=== PATIENT | male | born 1960 | race Two or more races ===

== ENCOUNTER 2022-09-28 18:40 | Inpatient (IN) | payer OTHER, SELFPAY ==
--- NOTE | ~2022-09-28 | CT_ITS ---
Indication: Trauma EXAMINATION: CT brain and CT cervical spine. Axial imaging with coronal and sagittal reformatted images. This CT examination was performed using dose optimization techniques as appropriate, variously including the following: *Automated exposure control *Adjustment of mA and/or kV according to patient size (this includes techniques or standardized protocols for targeted exams where dose is matched to indication/reason for exam; i.e. extremities or head) *Use of iterative reconstruction technique. Radiation dose [address] brain; There is no midline shift. There is no mass effect. There is no hemorrhage. The basal cisterns appear patent. The posterior fossa is grossly within normal limits. There is no extra-axial collection. There is no fracture on the bone windows. CT cervical spine; There is straightening of normal lordosis. This may be due to position or spasm. There is no acute fracture or dislocation. CT/CT head/brain wo IV con IMPRESSION: Negative acute noncontrast CT of the brain. Some straightening of the normal lordosis in the cervical spine which may be due to position or spasm. No fracture or dislocation. Degenerative changes are noted
--- NOTE | ~2022-09-28 | CT_ITS ---
Indication: Trauma EXAMINATION: Contrast enhanced CT of the chest abdomen pelvis. Axial imaging with coronal and sagittal reformatted images. 85 mL Omnipaque 350. This CT examination was performed using dose optimization techniques as appropriate, variously including the following: *Automated exposure control *Adjustment of mA and/or kV according to patient size (this includes techniques or standardized protocols for targeted exams where dose is matched to indication/reason for exam; i.e. extremities or head) *Use of iterative reconstruction technique. Radiation dose 1228. Findings; CT CHEST: The thoracic inlet is within normal limits. The axillary regions are unremarkable. Centrally there is no evidence for contrast extravasation. No free fluid in the mediastinum. Imaging the lung marroquin. Right lung; There is no pneumothorax. There is no effusion. Some mild reticulonodular change at the right base may represent an area of infiltrate. 6 mm nodule on image 67 of series 10 is noted. 5 mm groundglass nodule on image 75 posterior is noted. Left lung; There is no pneumothorax. There is no effusion. Area of groundglass nodularity on image 75. Measures 9 mm. 4 mm nodule medial lung base on image 88. Upper abdomen; Liver is within normal limits. The spleen is within normal limits. Region the pancreas is unremarkable. Area the adrenal glands within normal limits. The kidneys are in the early nephrographic phase. Nonobstructing calculi are noted. The bladder is thick-walled. The bowel pattern is nonobstructing. There is no free fluid. Beginnings of a left inguinal hernia. There is no bulky adenopathy. Mild atherosclerotic changes are noted. There is no evidence of contrast extravasation. There is no free fluid. Prominent fluid-filled stomach is noted. Review of the bone windows demonstrate some mild loss of mid height at vertebral body D10. This may be chronic. Mild acute compression cannot be completely excluded. There are some probable old fractures anterior on the right ribs. Correlation would be recommended clinically. Probable old left-sided rib fractures are also noted. Again correlation recommended clinically. CT/CT abdomen pelvis w IV con IMPRESSION: No evidence for visceral injury in the abdomen pelvis. No pneumothorax or effusion in the chest. Some reticular nodular change at the right base may represent an area of infiltrate. This could be aspiration. Otherwise some small nodules are noted in the lungs. Recommend low-dose noncontrast follow-up in 6 months for continued evaluation. There is mild compression injury at T10 but the age is indeterminate. This could be chronic. Correlation recommended clinically. Probable old rib fractures are noted but again correlation would be recommended clinically. Thick-walled bladder may be hypertrophy versus cystitis. Prominent prostate is noted Prominent fluid-filled stomach.
--- NOTE | ~2022-09-28 | CT_ITS ---
Indication: Trauma EXAMINATION: CT brain and CT cervical spine. Axial imaging with coronal and sagittal reformatted images. This CT examination was performed using dose optimization techniques as appropriate, variously including the following: *Automated exposure control *Adjustment of mA and/or kV according to patient size (this includes techniques or standardized protocols for targeted exams where dose is matched to indication/reason for exam; i.e. extremities or head) *Use of iterative reconstruction technique. Radiation dose [address] brain; There is no midline shift. There is no mass effect. There is no hemorrhage. The basal cisterns appear patent. The posterior fossa is grossly within normal limits. There is no extra-axial collection. There is no fracture on the bone windows. CT cervical spine; There is straightening of normal lordosis. This may be due to position or spasm. There is no acute fracture or dislocation. CT/CT cervical spine wo IV con IMPRESSION: Negative acute noncontrast CT of the brain. Some straightening of the normal lordosis in the cervical spine which may be due to position or spasm. No fracture or dislocation. Degenerative changes are noted
--- NOTE | 2022-09-28 18:49 | ED_ITS ---
HPI - Abdominal Pain General Chief Complaint: Nausea/Vomiting/Diarrhea Stated Complaint: SEPSIS ALERT Time Seen by Provider: 09/28/22 18:49 Source: patient and EMS Mode of arrival: EMS Limitations: no limitations History of Present Illness HPI narrative: 62-year-old male presents via EMS as a sepsis alert for fevers, nausea, vomiting, and ?feeling terrible for the past 3 days?. Patient is vomiting upon arrival, is visibly anxious, and tremors. MD elicited complaint: abdominal pain Pertinent past history: other (ETOH abuse) Onset (ago): day(s) (3) Pain Consistency: constant Location: diffuse Severity: severe Pain scale (0-10): 9 Quality: aching Radiation: none Exacerbating factors: nothing Associated symptoms: nausea, vomiting, fever, chills and anorexia Related Data Allergies Allergy/AdvReac Type Severity Reaction Status Date / Time No Known Allergies Allergy Verified 09/28/22 18:50 Review of Systems Review of Systems Constitutional: Positive subjective Fever, positive Chills ENT/Mouth: No Ear Pain, No Hoarseness, No sore throat Eyes: No Eye Pain, No Swelling, No Redness, No Foreign Body Cardiovascular: Positive Chest Pain, positive SOB Respiratory: No Cough, positive Dyspnea Gastrointestinal: Positive Nausea, positive Vomiting, No Diarrhea, positive abdominal Pain Genitourinary: No Dysuria, No Hematuria Musculoskeletal: positive diffuse joint pain, No Myalgias, No Joint Swelling Skin: No Skin lacerations, No rash Neuro: Positive Weakness, No Numbness, No Paresthesias, No Loss of Consciousness, No Dizziness, positive Headache Psych: Positive Anxiety/Panic, No Depression Heme/Lymph: no easy bruising, no Lymphadenopathy Endocrine: No Polyuria, No Polydipsia Yes all other systems are reviewed and are negative [facility] Past Medical History Attestation statement: The following information was validated with the patient. Source: old records reviewed Medical History (Updated 09/28/22 @ 23:57 by Iona Morgan MD) Alcohol use disorder Marijuana abuse Mood disorder Social History Social History Advance Directives: No Physical Exam ED Vital Signs: Vital Signs - 24 hr 09/28/22 18:53 09/28/22 20:00 09/28/22 22:00 Temperature 99.1 F 98.6 F Pulse Rate 60 56 91 Respiratory Rate 19 12 29 H Blood Pressure 198/100 H 195/104 H 163/86 H Pulse Oximetry 99 99 94 Oxygen Delivery Method Room Air Room Air Room Air BMI result Body Mass Index 25.7 Appearance: Alert. Oriented X3. Moderate distress. Eyes: Pupils equal, round and reactive to light. ENT: Pharynx normal. Neck: Normal inspection. Neck supple. CVS: Normal heart rate and rhythm. Pulses normal. Respiratory: No respiratory distress. Breath sounds normal. Abdomen: Soft and diffusely tender Skin: Skin warm and dry. Normal skin color. Normal skin turgor. Extremities: No lower extremity edema. Moves all extremities against resistance. Gait not assessed for safety. Neuro: No motor deficit. No sensory deficit. Cranial nerves 2-12 intact. Course Course Course Narrative: 62-year-old male in moderate distress presents with abdominal pain, nausea, vomiting, and anxiety. States that he uses alcohol on a daily basis as well as marijuana. He reports falling 3 days ago, does not recall all the events, st ates to have headache. He also describes diffuse abdominal pain, with anxiety and tremors. Patient states to have had sweats, but did not take any medications to alleviate his symptoms, or a temperature. While patient presented via EMS as a sepsis alert I do not feel that this patient is septic at this time. 19:00 rectal temp 99.1 degrees, patient's vital signs are stable and within normal limits, with the exception of an elevated blood pressure. while patient was called in with sepsis alert, I do not feel that patient is septic at this time, I feel that this could possibly be more withdrawal symptoms. Order for Reglan, Versed, and Benadryl. Zofran was ineffective, given by EMS on transit. 19:07 CT scan head, cervical spine, chest abdomen pelvis with contrast as patient is a suspected trauma, and could possibly have subdural hematoma versus intra-abdominal bleeding. 19:48 VBG is consistent with metabolic acidosis, I do not have a source of infection yet. Will order ceftriaxone IV. White count is 16.1, will hold off on fluids at this time until chemistries. 19:56 lactic acid 8.8, 2 L normal saline. 2 L normal saline hung by this [employer]. 20:30 order for hydralazine for blood pressure control. 20:50 patient continues to be anxious, order for 1 mg of Versed. Symptoms co nsistent with withdrawal. After multiple interventions, repeat lactic is 2.2, plan of care is to admit for suspected ETOH withdrawal. Will start phenobarbital. Could possibly also be cyclic vomiting syndrome as patient does use marijuana on daily basis. Consultations Consultation #1: Eddie MDM - Abdominal Pain Differential Diagnosis Differential diagnosis: Likely abdominal pain, acute appendicitis, bowel perforation, constipation, diverticulitis, gastritis, pancreatitis and small bowel obstruction Differential diagnosis narrative:: Cyclic vomiting syndrome, subdural hematoma, ETOH withdrawal Medical Records Attestation: I reviewed the patient's medical records. Lab Data Attestation: I reviewed the patient's lab results. Result diagrams: 09/28/22 19:21 09/28/22 19:21 Labs: Lab Results 09/28/22 09/28/22 09/28/22 Range/Units 19:21 19:21 19:21 WBC 16.4 H (4.8-10.8) X10*3/uL RBC 5.61 (4.60-5.80) X10*6/uL Hgb 17.2 (14.0-18.0) g/dl Hct 49.3 (42.0-52.0) % MCV 87.9 (80.0-98.0) fL MCH 30.7 (27.0-33.0) pg MCHC 34.9 (31.0-36.0) g/dl RDW 14.2 (11.0-16.0) % Plt Count 273 (160-400) X10*3/uL MPV 9.4 (9.4-12.4) fL Immature Gran % (Auto) 0.5 H (0.0-0.4) % Neut % (Auto) 90.0 H (45-73) % Lymph % (Auto) 5.9 L (20-40) % Chambers % (Auto) 3.3 (2-11) % Eos % (Auto) 0.0 (0-4) % Baso % (Auto) 0.3 (0-2) % Lymph # (Auto) 1.0 L (1.2-4.9) X10*3/uL Chambers # (Auto) 0.5 (0.1-1.2) X10*3/uL Eos # (Auto) 0.0 (0.0-0.4) X10*3/uL Baso # (Auto) 0.1 (0.0-0.2) X10*3/uL Abs Immat Gran (auto) 0.08 H (0.00-0.03) X10*3/uL Absolute Neuts (auto) 14.8 H (2.0-8.3) x10*3/uL Absolute Nucleated RBC 0.000 (0.0-0.012) X10*3/uL Nucleated RBC % (auto) 0.0 (0.0-0.2) /100WBC PT 12.7 (10.0-13.1) SEC INR 1.1 (0.9-1.1) APTT 28.7 (26.0-36.4) SEC VBG pH (7.32-7.43) VBG pCO2 mmHg VBG pO2 mmHg VBG HCO3 (22-26) mmol/L VBG O2 Saturation % VBG Base Excess mmol/L Sodium 134 L (135-145) mmol/L Potassium 5.5 H (3.3-5.1) mmol/L Chloride 92 L (96-108) mmol/L Carbon Dioxide 18 L (22-29) mmol/L Anion Gap 30 H (12-20) BUN 15 (9-16) mg/dL Creatinine 1.05 (0.5-1.4) mg/dL Estim Creat Clear Calc 61.0 Estimated GFR > 60 Random Glucose 115 (60-115) mg/dL Lactic Acid (0.5-2.0) mmol/L Lactic Acid F/U @ 2Hr (0.5-2.0) mmol/L Calcium 9.8 (8.4-10.2) mg/dL Magnesium 1.6 (1.6-2.6) mg/dL Total Bilirubin 1.0 (0.0-1.0) mg/dL Direct Bilirubin 0.4 (0.0-0.5) mg/dL AST 19 (5-37) U/L ALT 10 (0-40) U/L Alkaline Phosphatase 63 (39-117) U/L Ammonia (13-55) umol/L Troponin I High Sens (<3.5-35.0) ng/L B-Natriuretic Peptide (<100) pg/mL Total Protein 7.7 (6.5-8.0) g/dL Albumin 4.6 (3.5-5.0) g/dL Lipase 7 L (8-78) U/L Urine Color Urine Appearance Urine pH (5.0-9.0) Ur Specific [place] (1.005-1.025) Urine Protein (Neg-Trace) mg/dL Urine Glucose (UA) (Negative) mg/dL Urine Ketones (Negative) mg/dL Urine Blood (Negative) Urine Nitrite (Negative) Ur Leukocyte Esterase (Negative) Urine RBC (0-2) /HPF Urine WBC (0-5) /HPF Ur Squamous Epith Cells (0-2) /HPF Urine Bacteria (None Seen) Hyaline Casts (0-2) /LPF Urine Opiates Screen (Not Detect) Urine Fentanyl Screen (Not Detect) Ur Barbiturates Screen (Not Detect) Ur Phencyclidine Scrn (Not Detect) Ur Amphetamines Screen (Not Detect) U Benzodiazepines Scrn (Not Detect) Urine Cocaine Screen (Not Detect) U Marijuana (THC) Screen (Not Detect) Ethyl Alcohol < 10 mg/dL Acetone, Qual (Negative) Influenza Type A (PCR) (Negative) Influenza Type B (PCR) (Negative) RSV RNA Qual (PCR) (Negative) SARS-CoV-2 RNA (RT-PCR) (Negative) Blood Type Antibody Screen 09/28/22 09/28/22 09/28/22 Range/Units 19:21 19:21 19:21 WBC (4.8-10.8) X10*3/uL RBC (4.60-5.80) X10*6/uL Hgb (14.0-18.0) g/dl Hct (42.0-52.0) % MCV (80.0-98.0) fL MCH (27.0-33.0) pg MCHC (31.0-36.0) g/dl RDW (11.0-16.0) % Plt Count (160-400) X10*3/uL MPV (9.4-12.4) fL Immature Gran % (Auto) (0.0-0.4) % Neut % (Auto) (45-73) % Lymph % (Auto) (20-40) % Chambers % (Auto) (2-11) % Eos % (Auto) (0-4) % Baso % (Auto) (0-2) % Lymph # (Auto) (1.2-4.9) X10*3/uL Chambers # (Auto) (0.1-1.2) X10*3/uL Eos # (Auto) (0.0-0.4) X10*3/uL Baso # (Auto) (0.0-0.2) X10*3/uL Abs Immat Gran (auto) (0.00-0.03) X10*3/uL Absolute Neuts (auto) (2.0-8.3) x10*3/uL Absolute Nucleated RBC (0.0-0.012) X10*3/uL Nucleated RBC % (auto) (0.0-0.2) /100WBC PT (10.0-13.1) SEC INR (0.9-1.1) APTT (26.0-36.4) SEC VBG pH (7.32-7.43) VBG pCO2 mmHg VBG pO2 mmHg VBG HCO3 (22-26) mmol/L VBG O2 Saturation % VBG Base Excess mmol/L Sodium (135-145) mmol/L Potassium (3.3-5.1) mmol/L Chloride (96-108) mmol/L Carbon Dioxide (22-29) mmol/L Anion Gap (12-20) BUN (9-16) mg/dL Creatinine (0.5-1.4) mg/dL Estim Creat Clear Calc Estimated GFR Random Glucose (60-115) mg/dL Lactic Acid 8.8 H* (0.5-2.0) mmol/L Lactic Acid F/U @ 2Hr (0.5-2.0) mmol/L Calcium (8.4-10.2) mg/dL Magnesium (1.6-2.6) mg/dL Total Bilirubin (0.0-1.0) mg/dL Direct Bilirubin (0.0-0.5) mg/dL AST (5-37) U/L ALT (0-40) U/L Alkaline Phosphatase (39-117) U/L Ammonia 28 (13-55) umol/L Troponin I High Sens < 3.5 (<3.5-35.0) ng/L B-Natriuretic Peptide 14 (<100) pg/mL Total Protein (6.5-8.0) g/dL Albumin (3.5-5.0) g/dL Lipase (8-78) U/L Urine Color Urine Appearance Urine pH (5.0-9.0) Ur Specific [place] (1.005-1.025) Urine Protein (Neg-Trace) mg/dL Urine Glucose (UA) (Negative) mg/dL Urine Ketones (Negative) mg/dL Urine Blood (Negative) Urine Nitrite (Negative) Ur Leukocyte Esterase (Negative) Urine RBC (0-2) /HPF Urine WBC (0-5) /HPF Ur Squamous Epith Cells (0-2) /HPF Urine Bacteria (None Seen) Hyaline Casts (0-2) /LPF Urine Opiates Screen (Not Detect) Urine Fentanyl Screen (Not Detect) Ur Barbiturates Screen (Not Detect) Ur Phencyclidine Scrn (Not Detect) Ur Amphetamines Screen (Not Detect) U Benzodiazepines Scrn (Not Detect) Urine Cocaine Screen (Not Detect) U Marijuana (THC) Screen (Not Detect) Ethyl Alcohol mg/dL Acetone, Qual (Negative) Influenza Type A (PCR) (Negative) Influenza Type B (PCR) (Negative) RSV RNA Qual (PCR) (Negative) SARS-CoV-2 RNA (RT-PCR) (Negative) Blood Type Antibody Screen 09/28/22 09/28/22 09/28/22 Range/Units 19:21 19:27 19:47 WBC (4.8-10.8) X10*3/uL RBC (4.60-5.80) X10*6/uL Hgb (14.0-18.0) g/dl Hct (42.0-52.0) % MCV (80.0-98.0) fL MCH (27.0-33.0) pg MCHC (31.0-36.0) g/dl RDW (11.0-16.0) % Plt Count (160-400) X10*3/uL MPV (9.4-12.4) fL Immature Gran % (Auto) (0.0-0.4) % Neut % (Auto) (45-73) % Lymph % (Auto) (20-40) % Chambers % (Auto) (2-11) % Eos % (Auto) (0-4) % Baso % (Auto) (0-2) % Lymph # (Auto) (1.2-4.9) X10*3/uL Chambers # (Auto) (0.1-1.2) X10*3/uL Eos # (Auto) (0.0-0.4) X10*3/uL Baso # (Auto) (0.0-0.2) X10*3/uL Abs Immat Gran (auto) (0.00-0.03) X10*3/uL Absolute Neuts (auto) (2.0-8.3) x10*3/uL Absolute Nucleated RBC (0.0-0.012) X10*3/uL Nucleated RBC % (auto) (0.0-0.2) /100WBC PT (10.0-13.1) SEC INR (0.9-1.1) APTT (26.0-36.4) SEC VBG pH 7.42 (7.32-7.43) VBG pCO2 27 mmHg VBG pO2 24 mmHg VBG HCO3 18 L (22-26) mmol/L VBG O2 Saturation < 30.0 % VBG Base Excess -4.4 mmol/L Sodium (135-145) mmol/L Potassium (3.3-5.1) mmol/L Chloride (96-108) mmol/L Carbon Dioxide (22-29) mmol/L Anion Gap (12-20) BUN (9-16) mg/dL Creatinine (0.5-1.4) mg/dL Estim Creat Clear Calc Estimated GFR Random Glucose (60-115) mg/dL Lactic Acid (0.5-2.0) mmol/L Lactic Acid F/U @ 2Hr (0.5-2.0) mmol/L Calcium (8.4-10.2) mg/dL Magnesium (1.6-2.6) mg/dL Total Bilirubin (0.0-1.0) mg/dL Direct Bilirubin (0.0-0.5) mg/dL AST (5-37) U/L ALT (0-40) U/L Alkaline Phosphatase (39-117) U/L Ammonia (13-55) umol/L Troponin I High Sens (<3.5-35.0) ng/L B-Natriuretic Peptide (<100) pg/mL Total Protein (6.5-8.0) g/dL Albumin (3.5-5.0) g/dL Lipase (8-78) U/L Urine Color Urine Appearance Urine pH (5.0-9.0) Ur Specific [place] (1.005-1.025) Urine Protein (Neg-Trace) mg/dL Urine Glucose (UA) (Negative) mg/dL Urine Ketones (Negative) mg/dL Urine Blood (Negative) Urine Nitrite (Negative) Ur Leukocyte Esterase (Negative) Urine RBC (0-2) /HPF Urine WBC (0-5) /HPF Ur Squamous Epith Cells (0-2) /HPF Urine Bacteria (None Seen) Hyaline Casts (0-2) /LPF Urine Opiates Screen (Not Detect) Urine Fentanyl Screen (Not Detect) Ur Barbiturates Screen (Not Detect) Ur Phencyclidine Scrn (Not Detect) Ur Amphetamines Screen (Not Detect) U Benzodiazepines Scrn (Not Detect) Urine Cocaine Screen (Not Detect) U Marijuana (THC) Screen (Not Detect) Ethyl Alcohol mg/dL Acetone, Qual Negative (Negative) Influenza Type A (PCR) NEGATIVE (Negative) Influenza Type B (PCR) NEGATIVE (Negative) RSV RNA Qual (PCR) NEGATIVE (Negative) SARS-CoV-2 RNA (RT-PCR) NEGATIVE (Negative) Blood Type Antibody Screen 09/28/22 09/28/22 09/28/22 Range/Units 19:58 21:00 21:00 WBC (4.8-10.8) X10*3/uL RBC (4.60-5.80) X10*6/uL Hgb (14.0-18.0) g/dl Hct (42.0-52.0) % MCV (80.0-98.0) fL MCH (27.0-33.0) pg MCHC (31.0-36.0) g/dl RDW (11.0-16.0) % Plt Count (160-400) X10*3/uL MPV (9.4-12.4) fL Immature Gran % (Auto) (0.0-0.4) % Neut % (Auto) (45-73) % Lymph % (Auto) (20-40) % Chambers % (Auto) (2-11) % Eos % (Auto) (0-4) % Baso % (Auto) (0-2) % Lymph # (Auto) (1.2-4.9) X10*3/uL Chambers # (Auto) (0.1-1.2) X10*3/uL Eos # (Auto) (0.0-0.4) X10*3/uL Baso # (Auto) (0.0-0.2) X10*3/uL Abs Immat Gran (auto) (0.00-0.03) X10*3/uL Absolute Neuts (auto) (2.0-8.3) x10*3/uL Absolute Nucleated RBC (0.0-0.012) X10*3/uL Nucleated RBC % (auto) (0.0-0.2) /100WBC PT (10.0-13.1) SEC INR (0.9-1.1) APTT (26.0-36.4) SEC VBG pH (7.32-7.43) VBG pCO2 mmHg VBG pO2 mmHg VBG HCO3 (22-26) mmol/L VBG O2 Saturation % VBG Base Excess mmol/L Sodium (135-145) mmol/L Potassium (3.3-5.1) mmol/L Chloride (96-108) mmol/L Carbon Dioxide (22-29) mmol/L Anion Gap (12-20) BUN (9-16) mg/dL Creatinine (0.5-1.4) mg/dL Estim Creat Clear Calc Estimated GFR Random Glucose (60-115) mg/dL Lactic Acid (0.5-2.0) mmol/L Lactic Acid F/U @ 2Hr (0.5-2.0) mmol/L Calcium (8.4-10.2) mg/dL Magnesium (1.6-2.6) mg/dL Total Bilirubin (0.0-1.0) mg/dL Direct Bilirubin (0.0-0.5) mg/dL AST (5-37) U/L ALT (0-40) U/L Alkaline Phosphatase (39-117) U/L Ammonia (13-55) umol/L Troponin I High Sens (<3.5-35.0) ng/L B-Natriuretic Peptide (<100) pg/mL Total Protein (6.5-8.0) g/dL Albumin (3.5-5.0) g/dL Lipase (8-78) U/L Urine Color Yellow Urine Appearance Clear Urine pH 5.5 (5.0-9.0) Ur Specific [place] >= 1.030 H (1.005-1.025) Urine Protein 100 (2+) H (Neg-Trace) mg/dL Urine Glucose (UA) Negative (Negative) mg/dL Urine Ketones >=160 (Negative) mg/dL Urine Blood Small (1+) H (Negative) Urine Nitrite Negative (Negative) Ur Leukocyte Esterase Negative (Negative) Urine RBC 0-2 (0-2) /HPF Urine WBC 0-5 (0-5) /HPF Ur Squamous Epith Cells 0-2 (0-2) /HPF Urine Bacteria None Seen (None Seen) Hyaline Casts 0-2 (0-2) /LPF Urine Opiates Screen Not Detected (Not Detect) Urine Fentanyl Screen Not Detected (Not Detect) Ur Barbiturates Screen Not Detected (Not Detect) Ur Phencyclidine Scrn Not Detected (Not Detect) Ur Amphetamines Screen Not Detected (Not Detect) U Benzodiazepines Scrn POSITIVE H (Not Detect) Urine Cocaine Screen Not Detected (Not Detect) U Marijuana (THC) Screen POSITIVE H (Not Detect) Ethyl Alcohol mg/dL Acetone, Qual (Negative) Influenza Type A (PCR) (Negative) Influenza Type B (PCR) (Negative) RSV RNA Qual (PCR) (Negative) SARS-CoV-2 RNA (RT-PCR) (Negative) Blood Type O Negative Antibody Screen NEGATIVE 09/28/22 Range/Units 21:41 WBC (4.8-10.8) X10*3/uL RBC (4.60-5.80) X10*6/uL Hgb (14.0-18.0) g/dl Hct (42.0-52.0) % MCV (80.0-98.0) fL MCH (27.0-33.0) pg MCHC (31.0-36.0) g/dl RDW (11.0-16.0) % Plt Count (160-400) X10*3/uL MPV (9.4-12.4) fL Immature Gran % (Auto) (0.0-0.4) % Neut % (Auto) (45-73) % Lymph % (Auto) (20-40) % Chambers % (Auto) (2-11) % Eos % (Auto) (0-4) % Baso % (Auto) (0-2) % Lymph # (Auto) (1.2-4.9) X10*3/uL Chambers # (Auto) (0.1-1.2) X10*3/uL Eos # (Auto) (0.0-0.4) X10*3/uL Baso # (Auto) (0.0-0.2) X10*3/uL Abs Immat Gran (auto) (0.00-0.03) X10*3/uL Absolute Neuts (auto) (2.0-8.3) x10*3/uL Absolute Nucleated RBC (0.0-0.012) X10*3/uL Nucleated RBC % (auto) (0.0-0.2) /100WBC PT (10.0-13.1) SEC INR (0.9-1.1) APTT (26.0-36.4) SEC VBG pH (7.32-7.43) VBG pCO2 mmHg VBG pO2 mmHg VBG HCO3 (22-26) mmol/L VBG O2 Saturation % VBG Base Excess mmol/L Sodium (135-145) mmol/L Potassium (3.3-5.1) mmol/L Chloride (96-108) mmol/L Carbon Dioxide (22-29) mmol/L Anion Gap (12-20) BUN (9-16) mg/dL Creatinine (0.5-1.4) mg/dL Estim Creat Clear Calc Estimated GFR Random Glucose (60-115) mg/dL Lactic Acid (0.5-2.0) mmol/L Lactic Acid F/U @ 2Hr 2.9 H* (0.5-2.0) mmol/L Calcium (8.4-10.2) mg/dL Magnesium (1.6-2.6) mg/dL Total Bilirubin (0.0-1.0) mg/dL Direct Bilirubin (0.0-0.5) mg/dL AST (5-37) U/L ALT (0-40) U/L Alkaline Phosphatase (39-117) U/L Ammonia (13-55) umol/L Troponin I High Sens (<3.5-35.0) ng/L B-Natriuretic Peptide (<100) pg/mL Total Protein (6.5-8.0) g/dL Albumin (3.5-5.0) g/dL Lipase (8-78) U/L Urine Color Urine Appearance Urine pH (5.0-9.0) Ur Specific [place] (1.005-1.025) Urine Protein (Neg-Trace) mg/dL Urine Glucose (UA) (Negative) mg/dL Urine Ketones (Negative) mg/dL Urine Blood (Negative) Urine Nitrite (Negative) Ur Leukocyte Esterase (Negative) Urine RBC (0-2) /HPF Urine WBC (0-5) /HPF Ur Squamous Epith Cells (0-2) /HPF Urine Bacteria (None Seen) Hyaline Casts (0-2) /LPF Urine Opiates Screen (Not Detect) Urine Fentanyl Screen (Not Detect) Ur Barbiturates Screen (Not Detect) Ur Phencyclidine Scrn (Not Detect) Ur Amphetamines Screen (Not Detect) U Benzodiazepines Scrn (Not Detect) Urine Cocaine Screen (Not Detect) U Marijuana (THC) Screen (Not Detect) Ethyl Alcohol mg/dL Acetone, Qual (Negative) Influenza Type A (PCR) (Negative) Influenza Type B (PCR) (Negative) RSV RNA Qual (PCR) (Negative) SARS-CoV-2 RNA (RT-PCR) (Negative) Blood Type Antibody Screen Imaging Data CT head, chest, cervical spine, abdomen pelvis: Attestation: I personally reviewed and interpreted this imaging study as follows: Radiologist's impression: CT brain; There is no midline shift. There is no mass effect. There is no hemorrhage. The basal cisterns appear patent. The posterior fossa is grossly within normal limits. There is no extra-axial collection. There is no fracture on the bone windows. CT cervical spine; There is straightening of normal lordosis. This may be due to position or spasm. There is no acute fracture or dislocation. CT/CT head/brain wo IV con IMPRESSION: Negative acute noncontrast CT of the brain. ? Some straightening of the normal lordosis in the cervical spine which may be due to position or spasm. No fracture or dislocation. Degenerative changes are noted CT CHEST: The thoracic inlet is within normal limits. The axillary regions are unremarkable. Centrally there is no evidence for contrast extravasation. No free fluid in the mediastinum. Imaging the lung marroquin. Right lung; There is no pneumothorax. There is no effusion. Some mild reticulonodular change at the right base may represent an area of infiltrate. 6 mm nodule on image 67 of series 10 is noted. 5 mm groundglass nodule on image 75 posterior is noted. Left lung; There is no pneumothorax. There is no effusion. Area of groundglass nodularity on image 75. Measures 9 mm. 4 mm nodule medial lung base on image 88. Upper abdomen; Liver is within normal limits. The spleen is within normal limits. Region the pancreas is unremarkable. Area the adrenal glands within normal limits. The kidneys are in the early nephrographic phase. Nonobstructing calculi are noted. The bladder is thick-walled. The bowel pattern is nonobstructing. There is no free fluid. Beginnings of a left inguinal hernia. There is no bulky adenopathy. Mild atherosclerotic changes are noted. There is no evidence of contrast extravasation. There is no free fluid. Prominent fluid-filled stomach is noted. Review of the bone windows demonstrate some mild loss of mid height at vertebral body D10. This may be chronic. Mild acute compression cannot be completely excluded. There are some probable old fractures anterior on the right ribs. Correlation would be recommended clinically. Probable old left-sided rib fractures are also noted. Again correlation recommended clinically. CT/CT abdomen pelvis w IV con IMPRESSION: No evidence for visceral injury in the abdomen pelvis. No pneumothorax or effusion in the chest. Some reticular nodular change at the right base may represent an area of infiltrate. This could be aspiration. ? Otherwise some small nodules are noted in the lungs. Recommend low-dose noncontrast follow-up in 6 months for continued evaluation. ? There is mild compression injury at T10 but the age is indeterminate. This could be chronic. Correlation recommended clinically. ? Probable old rib fractures are noted but again correlation would be recommended clinically. ? Thick-walled bladder may be hypertrophy versus cystitis. Prominent prostate is noted ? Prominent fluid-filled stomach. ECG Data Attestation: I personally reviewed and interpreted this ECG as follows: ECG interpretation date: 09/28/22 ECG interpretation time: 19:28 Prior ECG tracings: not available for review Interpretation: Vent. rate 58 BPM VT interval 164 ms QRS duration 72 ms QT/QTc 450/441 ms P-R-T axes 43 32 25 Sinus bradycardia Otherwise normal ECG No previous ECGs available Critical Care Time Critical Care Time Critical Care Time: Yes Total Critical Care Time: 65 Attestation: I have personally provided critical care time exclusive of time spent on separately billable procedures. Time includes review of laboratory data, radiology results, discussion with consultants, and monitoring for potential decompensation. Interventions were performed as documented. Discharge Plan Discharge Clinical Impression: Alcohol withdrawal, Aspiration into airway Patient Disposition: Admitted As Inpatient
--- NOTE | 2022-09-28 18:50 | ECG_ITS ---
Test Reason : HYPERTENSION Blood Pressure : / mmHG Vent. Rate : 058 BPM Atrial Rate : 058 BPM P-R Int : 164 ms QRS Dur : 072 ms QT Int : 450 ms P-R-T Axes : 043 032 025 degrees QTc Int : 441 ms Sinus bradycardia Otherwise normal ECG No previous ECGs available Referred By: Em Garcia Electronically Signed By:JAMESON BURNS MD
[2022-09-28 18:53] VITALS: BP 198/100; PULSE 60; RESP 19; TEMP 37.3; O2SAT 99; BMI 25.7
[2022-09-28] MEDS: iohexoL 350 MG/ML 100 ML INFUS..BTL IV (19:21)
[2022-09-28] MEDS: diphenhydrAMINE HCL 50 MG/ML VIAL 12.5 MG IVPUSH (19:25)
[2022-09-28 19:27] LABS: MANUAL DIFF FLAG NO
[2022-09-28] MEDS: Midazolam HCl/PF 2 MG/2 ML VIAL 1 MG IVPUSH ×2 (19:28→20:57)
[2022-09-28] MEDS: Metoclopramide HCl 10 MG/2 ML VIAL IVPUSH (19:28)
[2022-09-28 19:29] LABS: Basophils Absolute Auto 0.1 X10*3/uL (0.0-0.2); Basophils Percent Auto 0.3 % (0-2); Hematocrit 49.3 % (42.0-52.0); Hemoglobin 17.2 g/dl (14.0-18.0); Imm Gran Abs Auto 0.08 X10*3/uL (0.00-0.03); Imm Gran Pct Auto 0.5 % (0.0-0.4); Lymphocytes Percent Auto 5.9 % (20-40); Mean Corpuscular HGB Conc 34.9 g/dl (31.0-36.0); Mean Corpuscular Hemoglobin 30.7 pg (27.0-33.0); Mean Corpuscular Volume 87.9 fL (80.0-98.0); Mean Platelet Volume 9.4 fL (9.4-12.4); Monocytes Absolute Auto 0.5 X10*3/uL (0.1-1.2); Monocytes Percent Auto 3.3 % (2-11); Neutrophils Absolute Auto 14.8 x10*3/uL (2.0-8.3); Platelet Count 273 X10*3/uL (160-400); Red Blood Count 5.61 X10*6/uL (4.60-5.80); Red Cell Distribution Width 14.2 % (11.0-16.0); White Blood Count 16.4 X10*3/uL (4.8-10.8)
[2022-09-28 19:33] LABS: VBG Base Excess -4.4 mmol/L; VBG HCO3 18 mmol/L (22-26); VBG O2 % Saturation < 30.0 %; VBG pCO2 27 mmHg; VBG pH 7.42 (7.32-7.43); VBG pO2 24 mmHg
[2022-09-28 19:34] LABS: INTERNATIONAL NORM RATIO 1.1 (0.9-1.1); Prothrombin Time 12.7 SEC (10.0-13.1)
[2022-09-28 19:35] LABS: Venous Blood Gas Refer to POC result
[2022-09-28 19:37] LABS: Partial Thromboplastin Time 28.7 SEC (26.0-36.4)
[2022-09-28 19:46] LABS: Ammonia 28 umol/L (13-55)
[2022-09-28 19:50] LABS: Acetone, serum QL Negative (Negative)
[2022-09-28 19:56] LABS: Alanine Aminotransferase 10 U/L (0-40); Albumin Level 4.6 g/dL (3.5-5.0); Alkaline Phosphatase 63 U/L (39-117); Anion Gap 30 (12-20); Aspartate Amino Transferase 19 U/L (5-37); Bilirubin Direct 0.4 mg/dL (0.0-0.5); Blood Urea Nitrogen 15 mg/dL (9-16); Calcium 9.8 mg/dL (8.4-10.2); Carbon Dioxide 18 mmol/L (22-29); Chloride 92 mmol/L (96-108); Estimated Glomerular Filt Rate > 60; Ethanol < 10 mg/dL; Glucose Random 115 mg/dL (60-115); Lactic Acid 8.8 mmol/L (0.5-2.0); Lipase 7 U/L (8-78); Magnesium 1.6 mg/dL (1.6-2.6); Potassium 5.5 mmol/L (3.3-5.1); Sodium 134 mmol/L (135-145); Total Protein 7.7 g/dL (6.5-8.0)
[2022-09-28 19:59] LABS: B Type Natriuretic Peptide 14 pg/mL (<100); Troponin-I High Sensitivity < 3.5 ng/L (<3.5-35.0)
--- OUTSIDE RECORDS SUMMARY | 2022-09-28 19:59 | XMS_ITS | Continuity of Care Document ---
:1960 Author Organization [employer] Care Team Providers Name Role Phone [facility] Unavailable Unavailable Problems Combined list of problems from Department of Defense and Veterans Affairs facilities. It does not include entries that were removed or entered in error. Problem Status Onset Problem Date of Comments Source Date Type Resolution Dry skin Active Condition Jan 10, [facility] 022 2021 Entered WSTRN By: BANDAR GIVENS Comment: Treated with moisturizer Degenerative arthritis Active Condition Jan 03, [facility] 021 2020 Entered WSTRN By: BANDAR GIVENS Comment: affecting numerous joints Restless legs syndrome Active Condition April 01, [facility] 020 2019 Entered WSTRN By: BANDAR GIVENS Comment: treated with medication Schwannoma Inactive Condition 10/15/2019 Jan 05, [facility] 018 2018 Entered WSTRN By: BANDAR GIVENS Comment: benign tumor on right leg surgically removed Disorder of rotator Active Condition [facility] cuff (SNOMED CT 013 [facility] N [id number]) [place] [facility] Gout (SNOMED CT Active Condition [facility] [id number][facility] 013 [facility] [place] [facility] Hypercholesterolemia Active Condition [facility] (SNOMED CT 27196099) 013 [facility] [place] [facility] neck strain Inactive Condition NECK DoD STRAIN Adjustment disorder Active Condition Jun 202020 Entered By: TALIA VIDAL Comment: reviewed Oct 05, 2021 Entered By: TALIA VIDAL Comment: Reviewed Nov 28, 2021 Entered By: TALIA VIDAL Comment: reviewed Feb 28, 2022 Entered By: TALIA VIDAL Comment: reviewed Jun 03, 2022 Entered By: TALIA VIDAL Comment: reviewed Aug 27, 2022 Entered By: TALIA VIDAL Comment: reviewed Alcohol abuse Active Condition PROVID YULY [facility] Alcohol Abuse-Unspec Active Condition [facility] Jessica Alcohol dependence Active Condition P VALERIY [facility] Alcohol dependence Active Condition Jun 202020 Entered By: TALIA VIDAL Comment: reviewed Oct 05, 2021 Entered By: TALIA VIDAL Comment: Reviewed Nov 28, 2021 Entered By: TALIA VIDAL Comment: reviewed Feb 28, 2022 Entered By: TALIA VIDAL Comment: reviewed Jun 03, 2022 Entered By: TALIA VIDAL Comment: reviewed Aug 27, 2022 Entered By: TALIA VIDAL Comment: reviewed Chronic post-traumatic Active Condition Jun 20 [facility] CN[facility] stress disorder 2020 Entered W STRN By: TALIA BALDERAS Comment: reviewed Oct 05, 2021 Entered By: TALIA VIDAL Comment: Reviewed Nov 28, 2021 Entered By: TALIA VIDAL Comment: reviewed Feb 28, 2022 Entered By: TALIA VIDAL Comment: reviewed Jun 03, 2022 Entered By: TALIA VIDAL Comment: reviewed Aug 27, 2022 Entered By: TALIA VIDAL Comment: reviewed Chronic tension-type Active Condition ENTERPRISE headache [facility] Depressive disorder Active Condition Jun 20 [facility] CN[facility]L 2020 Entered WSTRN By: TALIA BALDERAS Comment: reviewed Oct 05, 2021 Entered By: TALIA VIDAL Comment: Reviewed Nov 28, 2021 Entered By: TALIA VIDAL Comment: reviewed Feb 28, 2022 Entered By: TALIA VIDAL Comment: reviwed Jun 03, 2022 Entered By: TALIA VIDAL Comment: reviewed Aug 27, 2022 Entered By: TALIA VIDAL Comment: reviewed Essential hypertension Active Condition [facility] CNTRL (SNOMED CT 74137676) WSTRN TREMAINE COSME gout Active Condition [facility] Gout Active Condition [facility] Health Maintenance Active Condition G EORGE E. (ICD-9-CM V65.9) [facility] SHANTANU [facility] HLD Active Condition [facility] Homeless single person Active Condition [facility] (SNOM[facility] 637792943) [facility] [place] [facility] Hyperlipidemia Active Condition PROVI DENCE [facility] Hypertension Active Condition PROVIDE NCE [facility] Insomnia (SCT Active Condition Nov 28, [facility] [id number]) 2020 Entered WSTRN By: TALIA BALDERAS Comment: sleep meds becoming less effective Feb 28, 2022 Entered By: TALIA VIDAL Comment: reviewed Jun 03, 2022 Entered By: TALIA VIDAL Comment: reviewed Aug 27, 2022 Entered By: TALIA VIDAL Comment: reviewed Lateral Epicondylitis Active Condition [facility] (Tennis Elbow) [facility] (ICD-9-CM 726.32) [facility] Mood Disorder NOS Active Condition GE ORGE E. (ICD-9-CM 296.90) [facility] Nicotine Dependence Active Condition [facility] [place] [facility] Noncompliance with Active Condition V [facility] Treatment [facility] [place] [facility] Posttraumatic stress Active Condition [facility] disorder [facility] Ptsd Active Condition [facility] C small blood on Active Condition [facility] urinalysis, 0-5 [facility] RBC/hpf [place] [facility] Thumb injury Active Condition [facility] [place] [facility] TOBACCO USE DISORDER Active Condition [facility] C Tobacco use, Active Condition PROVID[facility] NCE continuous [facility] Traumatic brain injury Active Condition [facility] with loss of [facility] consciousness [place] [facility] triple phosphate Active Condition [facility] crystals on [facility] urinalysis, moderate [place] [facility] 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 [facility] Acute alcoholic Inactive Condition 09/25/2021 [facility] intoxication in [facility] alcoholism [place] [facility] Adjustment insomnia Inactive Condition 09/25/2021 Jun 20 , [facility] (SNOMED CT [id number]) 2020 Ent ered WSTRN By: TALIA BALDERAS B Comment: reviewed Chronic unemployment Inactive Condition 09/25/2021 [facility] [place] [facility] ENCOUNTER-VOC THERAPY Inactive Condition 09/25/2021 [facility] [place] [facility] Open Treatment of Inactive Condition 12/11/2002 V A CNTR[facility] Mandibular Condylar [place] Fracture [place] [facility] Open Treatment of Inactive Condition 12/11/2002 V A [facility] Ulnar Shaft Fracture [place] [facility] Posttraumatic stress Inactive Condition 09/25/2021 Wu 2 0, [facility] disorder (SNOMED CT 2020 Enter ed WSTRN [id number]) By: TALIA BALDERAS [facility] KIRAN B Comment: reviewed Unemployment * Inactive Condition 09/25/2021 [facility] [place] [facility] Diagnosis: ICD-10-CM Active Diagnosis [facility] M25.50 Pain in W[facility]N unspecified jointwith [place] Provider Comments: H CS Joint Pain,Unspec Joint Diagnosis: ICD-10-CM Active Diagnosis [facility] F33.8 Other recurrent WSTRN depressive [place] disorderswith Provider [facility] Comments: Depressive disorder ([facility] [id number]) Diagnosis: ICD-10-CM Active Diagnosis [facility] F10.20 Alcohol WSTRN dependence, [place] uncomplicatedwith S Provider Comments: Alcohol dependence ([facility] [id number]) Diagnosis: ICD-10-CM Active Diagnosis [facility] K03.6 Deposits WSTRN [accretions] on [place] teethwith Provider H CS Comments: Deposits [accretions] on teeth Diagnosis: ICD-10-CM Active Diagnosis [facility] F10.20 Alcohol W[facility]N dependence, [place] uncomplicatedwith HC S Provider Comments: Alcohol dependence, uncomplicated (ICD-10-CM F10.20) Diagnosis: ICD-10-CM Active Diagnosis [facility] K08.411 Partial loss WSTRN of teeth due to [place] trauma, class Iwith [facility] Provider Comments: Partial loss of teeth due to trauma, class I Diagnosis: ICD-10-CM Active Diagnosis [facility] M79.671 Pain in right [facility] footwith Provider [facility] Comments: Pain in S right Foot Diagnosis: ICD-10-CM Active Diagnosis [facility] Z71.89 Other specified WSTRN counselingwith [facility] Provider Comments: H CS Counseling,Other Specified Diagnosis: ICD-10-CM Active Diagnosis [facility] Z71.89 Other specified WSTRN counselingwith [facility] Provider Comments: H CS Other specified counseling Diagnosis: ICD-10-CM Active Diagnosis NAD[facility] Z51.81 Encounter for CLINIC therapeutic drug level (631GE) monitoringwith Provider Comments: Therapeutic Drug Level Monitoring Diagnosis: ICD-10-CM Active Diagnosis [facility] K08.431 Partial loss WSTRN of teeth due to [place] caries, class Iwith [facility] Provider Comments: Partial loss of teeth due to caries, class I Diagnosis: ICD-10-CM Active Diagnosis [facility] L30.8 Other specified WSTRN dermatitiswith [facility] Provider Comments: H CS Other specified Dermatitis Diagnosis: ICD-10-CM Active Diagnosis [facility] F43.12 Post-traumatic WSTRN stress disorder, [place] chronicwith Provider [facility] Comments: Chronic post-traumatic stress disorder ([facility] [id number]) Diagnosis: ICD-10-CM Active Diagnosis [facility] Z23 Encounter for WS TRN immunizationwith ANGELA RUTHERFORD Provider Comments: H CS Encounter for Immunization Diagnosis: ICD-10-CM Active Diagnosis [facility] G47.00 Insomnia, WST RN unspecifiedwith [place] Provider Comments: H CS Insomnia ([facility] [id number]) Diagnosis: ICD-10-CM Active Diagnosis [facility] G25.81 Restless legs WSTRN syndromewith Provider [facility] Comments: Restless H CS legs syndrome ([facility] [id number]) Diagnosis: ICD-10-CM Active Diagnosis [facility] F43.12 Post-traumatic WSTRN stress disorder, [place] chronicwith Provider [facility] Comments: Post-traumatic stress disorder, chronic (ICD-10-CM F43.12) Diagnosis: ICD-10-CM Active Diagnosis [facility] M25.571 Pain in right WSTRN ankle and joints of [place] right footwith [facility] Provider Comments: Pain in right ankle and joints of right foot Diagnosis: ICD-10-CM Active Diagnosis [facility] M19.90 Unspecified W STRN osteoarthritis, [place] unspecified sitewith [facility] Provider Comments: Degenerative arthritis ([facility] [id number]) Diagnosis: ICD-10-CM Active Diagnosis [facility] H25.13 Age-related W STRN nuclear cataract, [place] bilateralwith Provider [facility] Comments: Age-Related Nuclear Cataract, Bilateral Diagnosis: ICD-10-CM Active Diagnosis [facility] F43.12 Post-traumatic WSTRN stress disorder, [place] chronicwith Provider HCS Comments: Posttraumatic stress disorder ([facility] [id number]) Diagnosis: ICD-10-CM Active Diagnosis [facility] K08.9 Disorder of [place] TRN teeth and supporting [place] structures, HCS unspecifiedwith Provider Comments: Disorder of teeth and supporting structures, unspecified Diagnosis: ICD-10-CM Active Diagnosis [facility] CNTR[facility] M25.511 Pain in right WSTRN shoulderwith Provider [place] Comments: Pain in HC S right Shoulder Medications Combined list of outpatient medications from Department of Defense and Veterans Affairs facilities. Medications provided include 1) outpatient medications from the last 15 months, and 2) patient-reported medications. Medication Details Route Status Patient Prescription Prescription Last Ordering Order Source Instructions Expires Number Dispense Provider Date Date Allopurinol TAKE ONE Active 11/04/2022 [id number] MCKINLEY 02/20/ [facility] (Alloprim) TABLET 2 2021 pton Tablet 100 BY MOUTH [facility] mg Oral ONCE DAILY FOR GOUT Allopurinol TAKE ONE Discont 09/10/2021 [id number] GETACHEW Almanza, 11/06/ [facility] (Alloprim) TABLET inued 1 2020 pton Tablet 100 BY MOUTH [facility] mg Oral ONCE DAILY FOR GOUT ALLOPURINOL TAKE ONE ORAL ACTIVE 11/04/2022 [id number] JACQUELINE JORGE 11/03/ [facility] 100MG TAB TABLET 2 JULISSA D 2020 CNTRL BY MOUTH [place] ONCE [place] DAILY SETS FOR GOUT HCS ALLOPURINOL TAKE ONE ORAL DISCONT 09/10/2021 [id number] JACQUELINE JORGE 09/13/ [facility] 100MG TAB TABLET INUE 1 JULISSA D 2019 CNTRL BY MOUTH [place] ONCE [place] DAILY SETS FOR GOUT HCS Ammonium APPLY Active 01/11/2023 [id number] MCKINLEY 04/02 2/ [facility] Lactate MODERATE 2 2021 pton (Lac-Hydrin AMOUNT [facility] ) Lotion TOPICALL 12% Topical Y AT BEDTIME NEEDED FOR DRY IRRITATE D SKIN AMMONIUM APPLY TOPICA ACTIVE 01/11/2023 [id number] JACQUELINE SEN 01/10/ [facility] LACTATE 12% MODERATE LLY 2 JULISSA D 2021 CNTRL LOTION AMOUNT [place] TOPICALL [place] Y AT SETS BEDTIME HCS NEEDED FOR DRY IRRITATE D SKIN AMOXICILLIN TAKE ONE 09/13/2021 [id number] BONT EMPI, 09/16/ [facility] 500 MG ORAL CAPSULE 1 HANNA Pham 2020 pt on CAP BY MOUTH [facility] THREE TIMES A DAY AMOXICILLIN TAKE ONE ORAL 09/13/2021 [id number] B ONTEMPI, 08/17/ [facility] TRIHYDRATE CAPSULE 1 HANNA Pham 2020 CNT RL 500MG CAP BY MOUTH WSTRN THREE [place] TIMES A SETS DAY HCS Bupivacaine TAKE TWO Active 11/29/2022 [id number] WILLI AMS, 12/09/ [facility] HCl/Dextros CAPSULES 1 JAYSHREE B 2021 pt on e Solution BY MOUTH [facility] 0.75%/8.25% AT Injection BEDTIME DIRECTED . BEWARE OF HYPOTENS ION Bupivacaine TAKE TWO Discont 10/06/2022 [id number] WILL IAMS, 12/08/ [facility] HCl/Dextros CAPSULES inued 1 JAYSHREE B 2021 pt on e Solution BY MOUTH [facility] 0.75%/8.25% AT Injection BEDTIME DIRECTED . BEWARE OF HYPOTENS ION Bupivacaine TAKE TWO 06/21/2022 [id number] WILL IAMS, 09/16/ [facility] HCl/Dextros CAPSULES 1 JAYSHREE B 2020 pt on e Solution BY MOUTH [facility] 0.75%/8.25% AT Injection BEDTIME DIRECTED . BEWARE OF HYPOTENS ION carboxymeth INSTILL Active 01/12/2023 [id number] RANDALL, 04/24/ [facility] ylcel 0.5% 1 DROP 2 CHRISTA J 2021 pton EYE DROP [2 [facility] X15ML] EACH EYE FOUR TIMES A DAY CARBOXYMETH INSTILL EACH ACTIVE 01/12/2023 [id number] RANDALL, LAC 01/11/ VA YLCELLULOSE 1 DROP EYE 2 EY J 2021 CNTRL NA 0.5% INTO WSTRN SOLN,OPH EACH EYE [place] FOUR SETS TIMES A HCS DAY CHLORHEXIDI RINSE ORAL 09/13/2021 [id number] [place]P [place], [place] 10[place] BY 1 HANNA Pham 2020 CNTRL GLUCONATE MOUTH WSTRN 0.12% TWICE [place] RINSE,ORAL DAILY SETS FOR 3 HCS WEEKS Chlorhexidi RINSE 09/13/2021 [id number] BONTEMP I, am ne 10ML BY 1 HANNA Pham 2020 pton Gluconate, MOUTH [facility] 0.12%, TWICE Mouthwash DAILY FOR 3 WEEKS EFFEXOR XR TAKE ONE Active 07/18/2023 [id number] WILLIA MS, [facility] (BRAND) 75 CAPSULE 2 JAYSHREE B 2021 pton MG ORAL BY MOUTH [facility] CP24 ONCE DAILY FOR DEPRESSI ON, PTSD EFFEXOR XR TAKE ONE Discont 05/31/2023 [id number] WILLI AMS, [facility] (BRAND) 75 CAPSULE inued 2 JAYSHREE B 2021 pton MG ORAL BY MOUTH [facility] CP24 ONCE DAILY FOR DEPRESSI ON, PTSD HYDROCODONE TAKE 1 ORAL 09/13/2021 [id number] BONTEM PI, DC 5MG/ACETAMI TABLET 1 HANNA Pham 2020 CNT RL NOPHEN BY MOUTH WSTRN 325MG TAB EVERY 6 [place] HOURS SETS NEEDED HCS FOR PAIN HYDROCODONE TAKE 1 09/13/2021 [id number] BONTEM PI, [facility] BIT/ACETAMI TABLET 1 HANNA Pham 2020 pto n NOPHEN, BY MOUTH [facility] 5MG-325MG, EVERY 6 TABLET, HOURS ORAL NEEDED FOR PAIN IBUPROFEN TAKE ONE ORAL DISCONT 01/11/2023 [id number] JACQUELINE SEN 01/10/ JEFFRY 600MG TAB TABLET INUED 2 JULISSA D 2021 CNTRL BY MOUTH WSTRN FOUR [place] TIMES SETS DAILY HCS NEEDED TAKE WITH FOOD; FOR PAIN/INF LAMMATIO N/TERRANCE NG lisinopril TAKE ONE Active 11/04/2022 [id number] MCKINLEY Prince (U/D) 20 MG TABLET 2 2021 pton ORAL TAB BY MOUTH [facility] ONCE DAILY TO CONTROL BLOOD PRESSURE lisinopril TAKE ONE Discont 09/10/2021 [id number] MCKINLEY , [facility] (U/D) 20 MG TABLET inued 1 2020 pton ORAL TAB BY MOUTH [facility] ONCE DAILY TO CONTROL BLOOD PRESSURE LISINOPRIL TAKE ONE ORAL ACTIVE 11/04/2022 [id number] MCKINLEY ,HOW 11/03/ [facility] 20MG TAB TABLET 2 JULISSA D 2020 CNTRL BY MOUTH [place] ONCE [place] DAILY TO SETS CONTROL HCS BLOOD PRESSURE LISINOPRIL TAKE ONE ORAL DISCONT 09/10/2021 [id number] MCKINLEY ,HOW 09/13/ [facility] 20MG TAB TABLET INUE 1 JULISSA D 2019 CNTRL BY MOUTH [place] ONCE [place] DAILY TO SETS CONTROL HCS BLOOD PRESSURE ONDANSETRON Active [id number] BROWN,AAR / Pharmac ODT 2 ON 2021 y Data (ondansetro Transac n), 4 MG, tion TAB RAPDIS, Service ORAL, Facilit [facility], 30 ea. BLIST PACK Oxycodone TAKE ONE Discont 04/01/2022 [id number] HOFFMA N, [facility] (Oxy IR TABLET inued 2 JULIAN D 2021 pton Eq.) Tablet BY MOUTH [facility] 5 mg Oral EVERY 4 HOURS NEEDED DIRECTED BY PROVIDER FOR MODERATE PAIN FROM FOOT/ANK LE SURGERY OXYCODONE Active [id number] Amina MURRELL 03/12 / Pharmac HCL 2 LILLY 2021 y Data (OXYCODONE Transac HCL), 10 tion MG, TABLET, Service ORAL, Facilit [facility], 100 ea. BOTTLE OXYCODONE TAKE ONE ORAL DISCONT 04/01/2022 [id number] LLOYD AlmanzaB 03/02/ VA HCL 5MG TAB TABLET INUED 2 LILLY D 2021 CNTRL BY MOUTH WSTRN EVERY 4 [place] HOURS SETS NEEDED HCS DIRECTED BY PROVIDER FOR MODERATE PAIN FROM FOOT/ANK LE SURGERY PRAMIPEXOLE TAKE ONE Active 11/29/2022 [id number] MCKINLEY Prince 0.25 MG TABLET 1 2021 pton ORAL TAB BY MOUTH [facility] AT BEDTIME DIRECTED . TAKE 2-3 HOURS BEFORE BEDTIME PRAMIPEXOLE TAKE ONE Discont 07/08/2022 [id number] KLEI N, [facility] 0.25 MG TABLET inued 1 2021 pton ORAL TAB BY MOUTH [facility] AT BEDTIME DIRECTED . TAKE 2-3 HOURS BEFORE BEDTIME PRAMIPEXOLE TAKE ONE Discont 01/04/2022 [id number] KLEI N, [facility] 0.25 MG TABLET inued 1 2020 pton ORAL TAB BY MOUTH [facility] AT BEDTIME DIRECTED . TAKE 2-3 HOURS BEFORE BEDTIME PRAMIPEXOLE TAKE ONE ORAL ACTIVE 11/29/2022 [id number] SEN ,HOW [facility] DIHYDROCHLO TABLET 2 JULISSA D 2020 CNTRL RIDE 0.25MG BY MOUTH WSTRN TAB AT [facility] BEDTIME SETS HCS DIRECTED . TAKE 2-3 HOURS BEFORE BEDTIME PRAMIPEXOLE TAKE ONE ORAL ACTIVE 01/04/2022 [id number] K LEIN,HOW 01/03/ [facility] DIHYDROCHLO TABLET 1 JULISSA D 2020 CNTRL RIDE 0.25MG BY MOUTH WSTRN TAB AT [facility] BEDTIME SETS HCS DIRECTED . TAKE 2-3 HOURS BEFORE BEDTIME PRAMIPEXOLE TAKE ONE ORAL DISCONT 07/08/2022 [id number] K LEIN,HOW 07/07/ [facility] DIHYDROCHLO TABLET INUE 1 JULISSA D 2020 CNTRL RIDE 0.25MG BY MOUTH WSTRN TAB AT [facility] BEDTIME SETS HCS DIRECTED . TAKE 2-3 HOURS BEFORE BEDTIME PRAZOSIN TAKE TWO ORAL DISCONT 11/29/2022 [id number] HANNA S, [facility] HCL 2MG CAP CAPSULES INUED 1 JAYSHREE B 2020 CN TRL BY MOUTH WSTRN AT [facility] BEDTIME SETS HCS DIRECTED . BEWARE OF HYPOTENS ION PRAZOSIN TAKE TWO ORAL DISCONT 10/06/2022 [id number] HANNA S, [facility] HCL 2MG CAP CAPSULES INUED 1 JAYSHREE B 2020 CN TRL BY MOUTH (EDIT) [place]STR[place] AT [place] BEDTIME SETS HCS DIRECTED . BEWARE OF HYPOTENS ION PRAZOSIN TAKE TWO ORAL DISCONT 06/21/2022 [id number] HANNA S, 06/20/ VA HCL 2MG CAP CAPSULES INUE 1 JAYSHREE B 2020 CN TRL BY MOUTH [place] AT [place] BEDTIME SETS HCS DIRECTED . BEWARE OF HYPOTENS ION RIVAROXABAN TAKE ONE 03/11/2022 [id number] AMADO MAN, 03/14/ [facility] 10 MG ORAL TABLET 2 JULIAN D 2021 pton TAB BY MOUTH [facility] ONCE DAILY DIRECTED BY PROVIDER WITH FOOD TO PREVENT DEEP VEIN THROMBOS IS (DVT) RIVAROXABAN TAKE ONE 03/03/2022 [id number] AMADO MAN, 02/13/ [facility] 10 MG ORAL TABLET 2 JULIAN D 2021 pton TAB BY MOUTH [facility] TWICE DAILY DIRECTED BY PROVIDER WITH FOOD TO PREVENT DEEP VEIN THROMBOS IS (DVT) RIVAROXABAN TAKE ONE ORAL DISCONT 03/03/2022 [id number] H OFFMAN,B 02/09/ [facility] 10MG TAB TABLET INUED 2 LILLY D 2021 CNTRL BY MOUTH (EDIT) WSTRN TWICE [place] DAILY SETS DIRECTED HCS BY PROVIDER WITH FOOD TO PREVENT DEEP VEIN THROMBOS IS (DVT) RIVAROXABAN TAKE ONE ORAL 03/11/2022 [id number] H OFFMAN,B 02/09/ [facility] 10MG TAB TABLET 2 LILLY D 2021 CNTRL BY MOUTH [place]STR[place] ONCE [place] DAILY SETS DIRECTED HCS BY PROVIDER WITH FOOD TO PREVENT DEEP VEIN THROMBOS IS (DVT) sildenafiL TAKE ONE Active 11/10/2022 [id number] MCKINLEY 11/16/ [facility] 50 MG ORAL TABLET 1 2020 pton TAB BY MOUTH [facility] NEEDED TAKE 1 HOUR PRIOR TO SEXUAL ACTIVITY DO NOT USE WITHIN 12 HOURS OF TAKING PRAZOSIN SILDENAFIL TAKE ONE ORAL HOLD 11/10/2022 [id number] JACQUELINE SEN 1 01/14/ VA CITRATE TABLET JULISSA D 2020 CNTRL 50MG TAB BY MOUTH [place]STR[place] NEEDED SETS TAKE 1 HCS HOUR PRIOR TO SEXUAL ACTIVITY DO NOT USE WITHIN 12 HOURS OF TAKING PRAZOSIN SODIUM APPLY DENTAL ACTIVE 05/09/2023 [id number] HOHREITER 05/08/ VA FLUORIDE DIRECTED TOPICA RICHARD Payan 2021 CNTR L 1.1% TO TEETH L WSTRN CREAM,ORAL TWICE [place] DAILY SETS HCS VENLAFAXINE TAKE ORAL DISCONT 02/22/2023 [id number] HANNA S, 02/21/ [facility] HCL 37.5MG THREE INUED 2 JAYSHREE B 2021 CNTRL 24HR CAP,SA CAPSULES (EDIT) WSTR N BY MOUTH [place] ONCE SETS DAILY HCS FOR DEPRESSI ON, PTSD VENLAFAXINE TAKE ORAL DISCONT 11/29/2022 [id number] HANNA S, 12/09/ [facility] HCL 37.5MG THREE INUED 2 JASYHREE B 2021 CNTRL 24HR CAP,SA CAPSULES WSTRN BY MOUTH [place] ONCE SETS DAILY HCS FOR DEPRESSI ON, PTSD VENLAFAXINE TAKE ORAL DISCONT 10/06/2022 [id number] HANNA S, 10/05/ [facility] HCL 37.5MG THREE INUED 1 JAYSHREE B 2020 CNTRL 24HR CAP,SA CAPSULES (EDIT) WSTR N BY MOUTH [place] ONCE SETS DAILY HCS FOR DEPRESSI ON, PTSD VENLAFAXINE TAKE 3 ORAL DISCONT 05/04/2022 [id number] WILLIA MS, 06/06/ [facility] HCL 37.5MG CAPSULES INUE 1 [facility] B 2020 CNT RL 24HR CAP,SA BY MOUTH WSTRN ONCE [place] DAILY SETS FOR HCS DEPRESSI ON, PTSD VENLAFAXINE TAKE ONE ORAL ACTIVE 07/18/2023 [id number] WILLI AMS, 07/17/ [facility] HCL 75MG CAPSULE 2 JAYSHREE B 2021 CNTRL 24HR CAP,SA BY MOUTH [place]STR[place] ONCE [place] DAILY SETS FOR HCS DEPRESSI ON, PTSD VENLAFAXINE TAKE ONE ORAL DISCONT 05/31/2023 [id number] W ILLIAMS, 05/31/ [facility] HCL 75MG CAPSULE INUED 2 JAYSHREE B 2021 CNTRL 24HR CAP,SA BY MOUTH [place]STR[place] ONCE [place] DAILY SETS FOR HCS DEPRESSI ON, PTSD venlafaxine TAKE Discont 02/22/2023 [id number] HANNA S, 06/11/ [facility] XR (U/D) THREE inued 2 [facility] 2021 pton 37.5 MG CAPSULES [facility] ORAL CP24 BY MOUTH ONCE DAILY FOR DEPRESSI ON, PTSD venlafaxine TAKE Discont 11/29/2022 [id number] HANNA S, 02/23/ [facility] XR (U/D) THREE inued 2 [facility] 2021 pton 37.5 MG CAPSULES [facility] ORAL CP24 BY MOUTH ONCE DAILY FOR DEPRESSI ON, PTSD venlafaxine TAKE Discont 10/06/2022 [id number] HANNA S, 12/08/ [facility] XR (U/D) THREE inued 1 [facility] 2021 pton 37.5 MG CAPSULES [facility] ORAL CP24 BY MOUTH ONCE DAILY FOR DEPRESSI ON, PTSD venlafaxine TAKE 05/04/2022 [id number] HANNA S, 08/31/ [facility] XR (U/D) THREE 1 JAYSHREE2020 pton 37.5 MG CAPSULES VA ORAL CP24 BY MOUTH ONCE DAILY FOR DEPRESSI ON, PTSD Zolpidem TAKE ONE Discont 04/07/2022 [id number] HANNA S, 12/08/ [facility] Tartrate TABLET inued 1 [facility] 2021 pton (Ambien BY MOUTH [facility] Eq.) Tablet AT 5mg Oral BEDTIME NEEDED FOR SLEEP Zolpidem TAKE ONE 12/06/2021 [id number] HANNA S, 09/16/ [facility] Tartrate TABLET 1 [facility] 2020 pton (Ambien BY MOUTH [facility] Eq.) Tablet AT 5mg Oral BEDTIME NEEDED FOR SLEEP Zolpidem TAKE ONE Active 11/30/2022 [id number] MARCY , 07/19/ [facility] Tartrate TABLET 2 [facility] 2021 pton (Ambien BY MOUTH [facility] Sadiq) Tablet AT 10 mg Oral BEDTIME NEEDED FOR SLEEP Zolpidem TAKE ONE Discont 08/24/2022 [id number] HANNA S, 06/12/ [facility] Tartrate TABLET inued 2 [facility] 2021 pton (Ambien BY MOUTH [facility] Sadiq) Tablet AT 10 mg Oral BEDTIME NEEDED FOR SLEEP Zolpidem TAKE ONE Discont 05/31/2022 [id number] HANNA S, 02/23/ [facility] Tartrate TABLET inued 2 [facility] B 2021 pton (Ambien BY MOUTH [facility] Sadiq) Tablet AT 10 mg Oral BEDTIME NEEDED FOR SLEEP ZOLPIDEM TAKE ONE ORAL ACTIVE 11/30/2022 [id number] MARCY , 06/07/ [facility] TARTRATE TABLET 2 JAYSHREE B 2021 CNTRL 10MG TAB BY MOUTH [place] AT [place] BEDTIME SETS HCS NEEDED FOR SLEEP ZOLPIDEM TAKE ONE ORAL DISCONT 08/24/2022 [id number] HANNA S, 03/08/ [facility] TARTRATE TABLET INUED 2 JAYSHREE B 2021 CNTRL 10MG TAB BY MOUTH [place] AT [place] BEDTIME SETS HCS NEEDED FOR SLEEP ZOLPIDEM TAKE ONE ORAL DISCONT 05/31/2022 [id number] HANNA S, 11/28/ [facility] TARTRATE TABLET INUED 2 JAYSHREE B 2020 CNTRL 10MG TAB BY MOUTH [place] AT [place] BEDTIME SETS HCS NEEDED FOR SLEEP ZOLPIDEM TAKE ONE ORAL DISCONT 04/07/2022 [id number] HANNA S, 10/12/ [facility] TABLE[facility] INUED 1 JAYSHREE B 2020 [facility] 5MG TAB BY MOUTH [facility]STR[facility] AT [place] B[facility] NEEDED FOR SLEEP ZOLPIDEM TAKE ONE ORAL DISCONT 12/06/2021 [id number] HANNA S, 07/07/ [facility] INUE 1 JAYSHREE B 2020 [facility] 5MG TAB BY MOUTH [facility]STR[facility] AT [place] B[facility] NEEDED FOR SLEEP Immunizations Combined list of available immunizations from the Department of Defense and Veterans Affairs facilities. Immunization Series Date Administered Site Reaction Lot CVX Drug St atus Comments Source Given By Number Code Hide Washer COVID-19 3 complet MOD; [facility] 2020 ed [id number]; [facility] MRNA, LNP-S, 02 WSTRN PF, 100 MCG 2 [facility] OR 50 MCG SETS DOSE [facility] COVID-19 2 complet MOD; [facility] (), 2020 ed [id number]; CNTRL MRNA, LNP-S, 02 WSTRN PF, 100 1 [place] MCG/0.5 ML SET S [facility] COVID-19 1 complet MOD; VA (), 2020 ed [id number]; CNTRL MRNA, LNP-S, 02 WSTRN PF, 100 1 [place] MCG/0.5 ML SET S [facility] HEP B, ADULT complet [facility] 2019 ed [facility] [place] [facility] INFLUENZA, complet [facility] INJECTABLE, 2019 ed CN TRL QUADRIVALENT, WSTRN PRESERVATIVE [facility] FLU,3 YRS complet P ROVIDE (HISTORICAL) 2016 ed N CE [facility] INFLUENZA, complet VA SEASONAL, 2016 ed CNTR L INJECTABLE WST RN [place] [facility] DTAP, complet Site: PROVI DE UNSPECIFIED 2016 ed Left NC E FORMULATION Deltoid [facility] TDAP complet PRO [facility] 2016 ed [facility] [place] [facility] FLU,3 YRS complet P ROVIDE (HISTORICAL) 2015 ed N CE [facility] PNEUMOCOCCAL complet VA POLYSACCHARID 2015 ed CNTRL E PPV23 [facility] [place] [facility] [facility] FLU,3 YRS complet V A (HISTORICAL) 2014 ed C N[facility]L [facility] [place] [facility] [facility] FLU,3 YRS complet Site: V A (HISTORICAL) 2014 ed Right C NTR[facility] Deltoid [facility] [place] [facility] [facility] FLU,3 YRS complet [place] PROVIDE (HISTORICAL) 2014 ed ton VA AZE [facility] PNEUMOCOCCAL complet xx PROVIDE POLYSACCHARID 2014 ed NCE E PPV23 [facility] TETANUS-DIPTH 05/25/ NONE 139 complet Garces deisi THOMAS 2008 ed Pasteu r E. (TDAP) [id number] CAT N (HISTORICAL) JAN 28 [facility] 2010 DTAP, complet [facility] V A UNSPECIFIED 2008 ed [facility] FORMULATION WS TRN [place] [facility] TETANUS-DIPHT complet poe shona BREE SOLO 1998 ed E. (HISTORICAL) Juan ASCENCIO [facility] Results Combined list of recent chemistry, hematology and other laboratory results from Department of Defense and Veterans Affairs, ranging from 15 months to all on record, depending upon the facility. Order Results Value Reference Date Interpretation Specimen Commen ts Source Name Range TESTOSTE TESTOSTERO 572.57 220.00 - 06/26 Specimen Ty pe: SERUM [facility] [place] 892.00 No comment enter ed. WSTRN TOTAL [MASS/VOLU Ordering Pro vider: BANDAR SEN ME] IN Report Released Date/Time: Jun 18, 2021 06:46 PM [facility] SERUM OR Reporting Lab: [facility] [place] [facility] PLASMA [address] [facility] [address] Performing Lab: [place] CNTRL WSTRN [place] [facility] [address] [facility] [address] PSA PROSTATE 0.64 0.00 - 06/26 Specimen Type: SERUM [facility] SPECIFIC 4. No comment ente red. WSTRN AG Ordering Provid er: BANDAR SEN [MASS/VOLU Report Relea sed Date/Time: Jun 18, 2021 06:46 PM TS HCS ME] IN Reporting Lab: [place] CN[facility]L WSTRN [place] [facility] SERUM OR [address] [facility] [address] PLASMA Performing Lab: DC CNTRL WSTRN [place] [facility] [address] [facility] [address] URIC URATE 6.5 3.5 - 7.2 06/26 Specimen Type: SERUM [place] CNTRL ACID [MASS/VOLU /2020 No comment en tered. WSTRN ME] IN Ordering Provid er: BANDAR SEN SERUM OR Report Release d Date/Time: Jun 18, 2021 06:46 PM TS [facility]CS PLASMA Reporting Lab: DC CN[facility] WSTRN [place] [facility] [address] [facility] [address] Performing Lab: DC CNTRL WSTRN [place] [facility] [address] [facility] [address] TSH THYROTROPI 0.70 0.35 - 06/26 Specimen Type : SERUM [facility] N 5.00 /2020 No comment enter ed. WSTRN [UNITS/VOL Ordering Pro vider: BANDAR SEN UME] IN Report Released Date/Time: Jun 18, 2021 06:46 PM [facility] SERUM OR Reporting Lab: [facility] [place] [facility] PLASMA [address] [facility] [address] Performing Lab: [facility]N [place] [facility] [address] [facility] [address] URINALYS COLOR OF Yellow 06/26 Specimen Type: URINE [facility] IS URINE /2020 No comment enter ed. WSTRN Ordering Provid er: BANDAR SEN Report Released Date/Time: Jun 18, 2021 06:46 PM [facility] Reporting Lab: [facility] [place] [facility] [address] [facility] [address] Performing Lab: [facility] [address] [address] URINALYS APPEARANCE Clear 06/26 Specimen Typ e: URINE [facility] IS OF URINE /2020 No comment ente red. WSTRN Ordering Provid er: BANDAR SEN Report Released Date/Time: Jun 18, 2021 06:46 PM [facility] Reporting Lab: [facility] [place] [facility] [address] [facility] [address] Performing Lab: [facility] [place] [address] [address] URINALYS GLUCOSE Negative 06/26 Specimen Type: URINE [facility] IS [MASS/VOLU /2020 No comment en tered. WSTRN ME] IN Ordering Provid er: BANDAR SEN URINE Report Released Date/Time: Jun 18, 2021 06:46 PM [facility] Reporting Lab: [facility] [place] [facility] [address] [facility] [address] Performing Lab: [facility] [place] [address] [address] URINALYS KETONES Negative 06/26 Specimen Type: URINE [facility] IS [MASS/VOLU /2020 No comment en tered. WSTRN ME] IN Ordering Provid er: BANDAR SEN [place] URINE BY Report Release d Date/Time: Jun 18, 2021 06:46 PM TS [facility] TEST STRIP Reporting La b: [facility] [place] [facility] [address] [facility] [address] Performing Lab: [facility] [place] [facility] [address] [facility] [address] URINALYS ERYTHROCYT Negative 06/26 Specimen Ty pe: URINE [facility] IS ES No comment enter ed. WSTRN [PRESENCE] Ordering Pro vider: BANDAR SEN [place] IN URINE Report Release d Date/Time: Jun 18, 2021 06:46 PM TS [facility] SEDIMENT Reporting Lab: [facility] [place] [facility] BY LIGHT [address] [facility] [address] MICROSCOPY Performing L ab: [facility] [place] [address] [address] URINALYS PROTEIN Negative 06/26 Specimen Type: URINE [facility] IS [MASS/VOLU /2020 No comment en tered. WSTRN ME] IN Ordering Provid er: BANDAR SEN [place] URINE BY Report Release d Date/Time: Jun 18, 2021 06:46 PM TS [facility] TEST STRIP Reporting La b: [facility] [place] [facility] [address] [facility] [address] Performing Lab: [facility] [place] [address] [address] URINALYS NITRITE Negative 06/26 Specimen Type: URINE [facility] IS [PRESENCE] No comment en tered. WSTRN IN URINE Ordering Provi mayra: BANDAR SEN [place] Report Released Date/Time: Jun 18, 2021 06:46 PM TS [facility]CS Reporting Lab: [facility] [place] [facility] [address] [facility] [address] Performing Lab: [facility] [place] [address] [address] URINALYS BILIRUBIN. Small 06/26 Specimen Typ e: URINE [facility] IS TOTAL No comment enter ed. WSTRN [PRESENCE] Ordering Pro vider: BANDAR SEN IN URINE Report Release d Date/Time: Jun 18, 2021 06:46 PM [facility] Reporting Lab: [facility] [place] [facility] [address] [facility] [address] Performing Lab: [facility] [place] [facility] [address] [facility] [address] URINALYS SPECIFIC 1.020 1.016 - 06/26 Specimen Type: URINE [facility] IS GRAVITY OF 1.022 No comment en tered. WSTRN URINE BY Ordering Provi mayra: BANDAR SEN REFRACTOME Report Relea sed Date/Time: Jun 18, 2021 06:46 PM [facility] TRY Reporting Lab: [facility] [place] [facility] [address] [facility] [address] Performing Lab: [facility] [place] [facility] [address] [facility] [address] URINALYS PH OF 5.0 5.0 - 9.0 06/26 Specimen Type : URINE [facility] IS URINE BY No comment ente red. WSTRN TEST STRIP Ordering Pro vider: BANDAR SEN Report Released Date/Time: Jun 18, 2021 06:46 PM [facility] Reporting Lab: [facility] [place] [facility] [address] [facility] [address] Performing Lab: [facility] [place] [facility] [address] [facility] [address] URINALYS UROBILINOG <2.0 <2.0 - 2.0 06/26 Specimen Type: URINE [facility] IS EN /2020 No comment enter ed. WSTRN [MASS/VOLU Ordering Pro vider: BANDAR SEN ME] IN Report Released Date/Time: Jun 18, 2021 06:46 PM [facility] URINE BY Reporting Lab: [facility] [place] [facility] TEST STRIP [address] [facility] [address] Performing Lab: [facility] [place] [facility] [address] [facility] [address] URINALYS LEUKOCYTE Trace 06/26 Specimen Type : URINE [facility] IS ESTERASE No comment ente red. WSTRN [PRESENCE] Ordering Pro vider: BANDAR SEN IN URINE Report Release d Date/Time: Jun 18, 2021 06:46 PM TS [facility] BY TEST Reporting Lab: [facility] [place] [facility] STRIP [address] [facility] [address] Performing Lab: [facility] [place] [facility] [address] [facility] [address] LIVER PROTEIN 7.7 6.0 - 8.3 06/26 Specimen Type: SERUM [facility] FUNCTION [MASS/VOLU /2020 No comment e ntered. WSTRN ME] IN Ordering Provid er: BANDAR SEN SERUM OR Report Release d Date/Time: Jun 18, 2021 06:46 PM [facility] PLASMA Reporting Lab: [facility] [place] [facility] [address] [facility] [address] Performing Lab: [facility] [place] [facility] [address] [facility] [address] LIVER ALBUMIN 4.3 3.5 - 5.0 06/26 Specimen Type: SERUM [facility] FUNCTION [MASS/VOLU /2020 No comment e ntered. WSTRN ME] IN Ordering Provid er: BANDAR SEN SERUM OR Report Release d Date/Time: Jun 18, 2021 06:46 PM [facility] PLASMA Reporting Lab: [facility] [place] [facility] [address] [facility] [address] Performing Lab: [facility] [place] [facility] [address] [facility] [address] LIVER ALKALINE 65 40 - 150 06/26 Specimen Type: SERUM [facility] FUNCTION PHOSPHATAS /2020 No comment e ntered. WSTRN E Ordering Provid er: BANDAR SEN [ENZYMATIC Report Relea sed Date/Time: Jun 18, 2021 06:46 PM TS [facility] ACTIVITY/V Reporting La b: [facility] [place] [facility] OLUME] IN [address] [facility] [address] SERUM OR Performing Lab : [facility] [place] [facility] PLASMA [address] [facility] [address] LIVER ASPARTATE 12 5 - 34 06/26 Specimen Type: SERUM [facility] FUNCTION AMINOTRANS /2020 No comment e ntered. WSTRN FERASE Ordering Provid er: BANDAR SEN [ENZYMATIC Report Relea sed Date/Time: Jun 18, 2021 06:46 PM TS [facility] ACTIVITY/V Reporting La b: [facility] [place] [facility] OLUME] IN [address] [facility] [address] SERUM OR Performing Lab : [facility] [place] [facility] PLASMA [address] [facility] [address] LIVER ALANINE 14 0 - 55 06/26 Specimen Type: S HERNANDEZ [facility] FUNCTION AMINOTRANS /2020 No comment e ntered. WSTRN FERASE Ordering Provid er: BANDAR SEN [ENZYMATIC Report Relea sed Date/Time: Jun 18, 2021 06:46 PM TS [facility]CS ACTIVITY/V Reporting La b: [facility] [place] [facility] OLUME] IN [address] [facility] [address] SERUM OR Performing Lab : [facility] [place] [facility] PLASMA [address] [facility] [address] LIVER BILIRUBIN. 0.4 0.2 - 1.2 06/26 Specimen Ty pe: SERUM [facility] FUNCTION TOTAL /2020 No comment ente red. WSTRN [MASS/VOLU Ordering Pro vider: BANDAR SEN ME] IN Report Released Date/Time: Jun 18, 2021 06:46 PM [facility] SERUM OR Reporting Lab: [facility] [place] [facility] PLASMA [address] [facility] [address] Performing Lab: [facility] [place] [facility] [address] [facility] [address] BASIC UREA 12 7 - 25 06/26 Specimen Type: S HERNANDEZ [facility] METABOLI NITROGEN /2020 No comment ent ered. WSTRN C PANEL [MASS/VOLU Ordering Pro vider: BANDAR SEN (fasting ME] IN Report Release d Date/Time: Jun 18, 2021 06:46 PM TS [facility] ) SERUM OR Reporting Lab: [facility] [place] [facility] PLASMA [address] [facility] [address] Performing Lab: [facility] [address] [facility] [address] BASIC GLUCOSE 103 65 - 100 06/26 H Specimen Type: SERUM [facility] METABOLI [MASS/VOLU /2020 No comment e ntered. WSTRN C PANEL ME] IN Ordering Provid er: BANDAR SEN (fasting SERUM OR Report Releas ed Date/Time: Jun 18, 2021 06:46 PM [facility] ) PLASMA Reporting Lab: [facility] [address] [facility] [address] Performing Lab: [place] CNTRL TRN [facility] [address] [facility] [address] BASIC SODIUM 138 135 - 145 06/26 Specimen Type: SERUM [facility] METABOLI [MOLE/VOL No comment e ntered. WSTRN C PANEL UME] IN Ordering Provid er: BANDAR SEN (fasting SERUM OR Report Releas ed Date/Time: Jun 18, 2021 06:46 PM [facility] ) PLASMA Reporting Lab: [facility] TRN [facility] [address] [facility] [address] Per[facility] [address] [facility] [address] BASIC POTASSIUM 4.1 3.5 - 5.0 06/26 Specimen Typ e: SERUM [facility] METABOLI [MOLES/VOL No comment e ntered. WSTRN C PANEL UME] IN Ordering Provid er: BANDAR SEN (fasting SERUM OR Report Releas ed Date/Time: Jun 18, 2021 06:46 PM [facility] ) PLASMA Reporting Lab: [facility] [address] [facility] [address] Performing Lab: [place] CN[facility]L WSTRN [facility] [address] [facility] [address] BASIC CHLORIDE 104 100 - 110 06/26 Specimen Type : SERUM [facility] METABOLI [MOLES/VOL No comment e ntered. WSTRN C PANEL UME] IN Ordering Provid er: BANDAR SEN (fasting SERUM OR Report Releas ed Date/Time: Jun 18, 2021 06:46 PM [facility] ) PLASMA Reporting Lab: [facility] [place] [facility] [address] [facility] [address] Performing Lab: [facility] [place] [facility] [address] [facility] [address] BASIC CARBON 24 20 - 30 06/26 Specimen Type: S HERNANDEZ [facility] METABOLI DIOXIDE, /2020 No comment ent ered. WSTRN C PANEL TOTAL Ordering Provid er: BANDAR SEN (fasting [MOLES/VOL Report Rele ased Date/Time: Jun 18, 2021 06:46 PM [facility] ) UME] IN Reporting Lab: [facility] [place] [facility] SERUM OR [address] [place] [address] PLASMA Performing Lab: [facility] W[facility]N [place] [facility] [address] [facility] [address] BASIC CREATININE 1.15 0.50 - 06/26 Specimen Type : SERUM [facility] METABOLI [MASS/VOLU 1.40 /2020 No comment e ntered. WSTRN C PANEL ME] IN Ordering Provid er: BANDAR SEN (fasting SERUM OR Report Releas ed Date/Time: Jun 18, 2021 06:46 PM [facility] ) PLASMA Reporting Lab: [facility] [place] [facility] [address] [facility] [address] Performing Lab: [facility] [place] [facility] [address] [facility] [address] BASIC GLOMERULAR 65 60 06/26 Specimen Type : SERUM [facility] METABOLI FILTRATION /2020 No comment e ntered. WSTRN C PANEL RATE/1.73 Ordering Prov ider: BANDAR SEN (fasting SQ Report Release d Date/Time: Jun 18, 2021 06:46 PM [facility] ) MAGED Reporting La b: [facility] [place] [facility] D [VOLUME [address] [facility] [address] RATE/AREA] Performing L ab: [facility] [place] [facility] IN SERUM [address] [place] [address] OR PLASMA BY CREATININE -BASED FORMULA (MDRD) LIPID CHOLESTERO 264 0 - 199 06/26 H Specimen Type : SERUM [facility] PANEL L /2020 No comment enter ed. WSTRN FASTING [MASS/VOLU Ordering Pro vider: BANDAR SEN ME] IN Report Released Date/Time: Jun 18, 2021 06:46 PM TS [facility] SERUM OR Reporting Lab: [facility] [place] [facility] PLASMA [address] [facility] [address] Performing Lab: [facility] [place] [facility] [address] [facility] [address] LIPID TRIGLYCERI 136 0 - 150 06/26 Specimen Type : SERUM [facility] PANEL DE /2020 No comment enter ed. WSTRN FASTING [MASS/VOLU Ordering Pro vider: BANDAR SEN ME] IN Report Released Date/Time: Jun 18, 2021 06:46 PM TS [facility] SERUM OR Reporting Lab: [facility] [place] [facility] PLASMA [address] [facility] [address] Performing Lab: [facility] [place] [facility] [address] [facility] [address] LIPID CHOLESTERO 201 0 - 129 07/ H Specimen Type : SERUM [facility] PANEL L IN LDL /2020 No comment ente red. WSTRN FASTING [MASS/VOLU Ordering Pro vider: BANDAR SEN ME] IN Report Released Date/Time: Jun 18, 2021 06:46 PM TS [facility] SERUM OR Reporting Lab: [facility] [place] [facility] PLASMA BY [address] [facility] [address] CALCULATIO Performing L ab: [facility] [place] [facility] N [address] [facility] [address] LIPID CHOLESTERO 7.3 06/26 Specimen Type : SERUM [facility] PANEL L.TOTAL/CH /2020 No comment en tered. WSTRN FASTING OLESTEROL Ordering Prov ider: BANDAR SEN IN HDL Report Released Date/Time: Jun 18, 2021 06:46 PM TS HCS [MASS Reporting Lab: [facility] [place] [facility] RATIO] IN [address] [facility] [address] SERUM OR Performing Lab : [facility] [place] [facility] PLASMA [address] [facility] [address] LIPID CHOLESTERO 36 40 - 60 06/26 L Specimen Type : SERUM [facility] PANEL L IN /2020 No comment ente red. WSTRN FASTING [MASS/VOLU Ordering Pro vider: BANDAR SEN ME] IN Report Released Date/Time: Jun 18, 2021 06:46 PM TS [facility] SERUM OR Reporting Lab: [facility] [place] [facility] PLASMA [address] [facility] [address] Performing Lab: [facility] [place] [facility] [address] [facility] [address] MICROSCO LEUKOCYTES 0-5 0 - 5 06/26 Specimen Typ e: URINE [facility] PIC [#/AREA] /2020 No comment ente red. WSTRN AUTOMATE IN URINE Ordering Prov ider: BANDAR SEN, URINE SEDIMENT Report Releas ed Date/Time: Jun 18, 2021 06:46 PM TS [facility] BY Reporting Lab: [facility] [place] [facility] MICROSCOPY [address] [facility] [address] HIGH POWER Performing L ab: [facility] [place] [facility] FIELD [address] [facility] [address] MICROSCO MUCUS FEW 06/26 Specimen Type: URINE [facility] PIC [#/AREA] /2020 No comment ente red. WSTRN AUTOMATE IN URINE Ordering Prov ider: BANDAR SEN, URINE SEDIMENT Report Releas ed Date/Time: Jun 18, 2021 06:46 PM TS [facility] BY Reporting Lab: [facility] [place] [facility] MICROSCOPY [address] [facility] [address] LOW POWER Performing La b: [facility] [place] [facility] FIELD [address] [facility] [address] MICROSCO ERYTHROCYT 0-2 0 - 3 06/26 Specimen Typ e: URINE [facility] PIC ES /2020 No comment enter ed. WSTRN AUTOMATE [#/AREA] Ordering Prov ider: BANDAR SEN, URINE IN URINE Report Releas ed Date/Time: Jun 18, 2021 06:46 PM TS [facility] SEDIMENT Reporting Lab: [facility] [place] [facility] BY [address] [facility] [address] MICROSCOPY Performing L ab: [facility] [place] [facility] HIGH POWER [address] [facility] [address] FIELD CBC AND LEUKOCYTES 6.32 4.50 - 06/26 Specimen Type : BLOOD [facility] DIFF [#/VOLUME] 11.00 No comment en tered. WSTRN (AUTO) IN BLOOD Ordering Provi mayra: BANDAR SEN BY Report Released Date/Time: Jun 18, 2021 06:46 PM TS [facility] AUTOMATED Reporting Lab : [facility] [place] [facility] COUNT [address] [facility] [address] Performing Lab: [facility] [place] [facility] [address] [facility] [address] CBC AND ERYTHROCYT 5.43 4.23 - 06/26 Specimen Type : BLOOD [facility] DIFF ES 5.66 No comment enter ed. WSTRN (AUTO) [#/VOLUME] Ordering Pro vider: BANDAR SEN IN BLOOD Report Release d Date/Time: Jun 18, 2021 06:46 PM TS [facility] BY Reporting Lab: [facility] [place] [facility] AUTOMATED [address] [facility] [address] COUNT Performing Lab: [facility] [place] [facility] [address] [facility] [address] CBC AND HEMOGLOBIN 15.9 12.8 - 17 06/26 Specimen Ty pe: BLOOD [facility] DIFF [MASS/VOLU /2020 No comment en tered. WSTRN (AUTO) ME] IN Ordering Provid er: BANDAR SEN BLOOD Report Released Date/Time: Jun 18, 2021 06:46 PM TS HCS Reporting Lab: [facility] [place] [facility] [address] [facility] [address] Performing Lab: [facility] [place] [facility] [address] [facility] [address] CBC AND HEMATOCRIT 47.5 39.2 - 06/26 Specimen Type : BLOOD [facility] DIFF [VOLUME 50.4 No comment enter ed. WSTRN (AUTO) FRACTION] Ordering Prov ider: BANDAR SEN OF BLOOD Report Release d Date/Time: Jun 18, 2021 06:46 PM TS [facility] BY Reporting Lab: [facility] [place] [facility] AUTOMATED [address] [facility] [address] COUNT Performing Lab: [facility] [place] [facility] [address] [facility] [address] CBC AND MCV 87.5 82 - 99 06/26 Specimen Type: B LOOD [facility] DIFF [ENTITIC /2020 No comment ente red. WSTRN (AUTO) VOLUME] BY Ordering Pro vider: BANDAR SEN AUTOMATED Report Releas ed Date/Time: Jun 18, 2021 06:46 PM TS [facility] COUNT Reporting Lab: [facility] [place] [facility] [address] [facility] [address] Performing Lab: [facility] [place] [facility] [address] [facility] [address] CBC AND MCHC 33.5 30.8 - 06/26 Specimen Type: B LOOD [facility] DIFF [MASS/VOLU 35.1 No comment en tered. WSTRN (AUTO) ME] BY Ordering Provid er: BANDAR SEN AUTOMATED Report Releas ed Date/Time: Jun 18, 2021 06:46 PM [facility] COUNT Reporting Lab: [facility] [place] [address] [facility] [address] Performing Lab: [facility] [place] [address] [facility] [address] CBC AND PLATELETS 251 140 - 360 06/26 Specimen Typ e: BLOOD [facility] DIFF [#/VOLUME] /2020 No comment en tered. [facility] (AUTO) IN BLOOD Ordering Provi mayra: BANDAR SEN BY Report Released Date/Time: Jun 18, 2021 06:46 PM [facility] AUTOMATED Reporting Lab : [facility] [place] [facility] COUNT [address] [facility] [address] Performing Lab: [facility] [place] [address] [facility] [address] CBC AND ERYTHROCYT 13.9 12.0 - 06/26 Specimen Type : BLOOD [facility] DIFF E 16.0 /2020 No comment enter ed. [facility] (AUTO) DISTRIBUTI Ordering Pro vider: BANDAR SEN ON WIDTH Report Release d Date/Time: Jun 18, 2021 06:46 PM TS [facility] [RATIO] BY Reporting La b: [facility] [place] [facility] AUTOMATED [address] [facility] [address] COUNT Performing Lab: [facility] [address] [facility] [address] CBC AND MONOCYTES 0.42 0.30 - 06/26 Specimen Type: BLOOD [facility] DIFF [#/VOLUME] 1.10 No comment en tered. [facility] (AUTO) IN BLOOD Ordering Provi mayra: BANDAR SEN BY Report Released Date/Time: Jun 18, 2021 06:46 PM [facility] AUTOMATED Reporting Lab : [facility] [place] [facility] COUNT [address] [facility] [address] Performing Lab: [facility] [place] [address] [facility] [address] CBC AND MCH 29.3 26.2 - 06/26 Specimen Type: B LOOD [facility] DIFF [ENTITIC 32.6 /2020 No comment ente red. [facility] (AUTO) MASS] BY Ordering Provi mayra: BANDAR SEN AUTOMATED Report Releas ed Date/Time: Jun 18, 2021 06:46 PM [facility] COUNT Reporting Lab: [facility] [place] [address] [facility] [address] Performing Lab: [facility] [place] [address] [facility] [address] CBC AND NEUTROPHIL 51.3 06/26 Specimen Type : BLOOD [facility] DIFF S/100 /2020 No comment enter ed. [facility] (AUTO) LEUKOCYTES Ordering Pro vider: BANDAR SEN IN BLOOD Report Release d Date/Time: Jun 18, 2021 06:46 PM [facility] BY Reporting Lab: [facility] [place] [facility] AUTOMATED [address] [facility] [address] COUNT Performing Lab: [facility] [place] [facility] [address] [facility] [facility] [address] CBC AND LYMPHOCYTE 34.0 06/26 Specimen Type : BLOOD [facility] DIFF S/100 No comment enter ed. W[facility]N (AUTO) LEUKOCYTES Ordering Pro vider: BANDAR SENCHSHANNAN IN BLOOD Report Release d Date/Time: Jun 18, 2021 06:46 PM TS [facility] BY Reporting Lab: [facility] [place] [facility] AUTOM[facility] [address] [facility] [address] COUNT Performing Lab: [facility] [place] [facility] [address] [facility] [address] CBC AND MONOCYTES/ 6.6 06/26 Specimen Type : BLOOD [facility] DIFF No comment enter ed. WSTRN (AUTO) LEUKOCYTES Ordering Pro vider: BANDAR SEN IN BLOOD Report Release d Date/Time: Jun 18, 2021 06:46 PM TS [facility]CS BY Reporting Lab: [facility] [place] [facility] AUTOMATED [address] [facility] [address] COUNT Performing Lab: [facility] [place] [facility] [address] [facility] [address] CBC AND EOSINOPHIL 6.5 06/26 Specimen Type : BLOOD [facility] DIFF S/ No comment enter ed. WSTRN (AUTO) LEUKOCYTES Ordering Pro vider: BANDAR SENCHSHANNAN IN BLOOD Report Release d Date/Time: Jun 18, 2021 06:46 PM TS [facility]CS BY Reporting Lab: [facility] [place] [facility] AUTOM[facility] [address] [facility] [address] COUNT Performing Lab: [facility] [place] [facility] [address] [facility] [address] CBC AND BASOPHILS/ 1.1 06/26 Specimen Type : BLOOD [facility] DIFF No comment enter ed. WSTRN (AUTO) LEUKOCYTES Ordering Pro vider: BANDAR SENCHUSE IN BLOOD Report Release d Date/Time: Jun 18, 2021 06:46 PM TS [facility]CS BY Reporting Lab: [facility] [place] [facility] AUTOMATED [address] [facility] [address] COUNT Performing Lab: [facility] [place] [facility] [address] [facility] [address] CBC AND NEUTROPHIL 3.24 2.20 - 06/26 Specimen Type : BLOOD [facility] DIFF S 7.60 /2020 No comment enter ed. WSTRN (AUTO) [#/VOLUME] Ordering Pro vider: BANDAR SEN IN BLOOD Report Release d Date/Time: Jun 18, 2021 06:46 PM TS [facility] BY Reporting Lab: [facility] [place] [facility] AUTOMATED [address] [facility] [address] COUNT Performing Lab: [facility] [place] [facility] [address] [facility] [address] CBC AND LYMPHOCYTE 2.15 1.00 - 06/26 Specimen Type : BLOOD [facility] DIFF S 3.20 No comment enter ed. WSTRN (AUTO) [#/VOLUME] Ordering Pro vider: BANDAR SEN IN BLOOD Report Release d Date/Time: Jun 18, 2021 06:46 PM TS [facility] BY Reporting Lab: [facility] [place] [facility] AUTOMATED [address] [facility] [address] COUNT Performing Lab: [facility] [place] [facility] [address] [facility] [address] CBC AND EOSINOPHIL 0.41 0.03 - 06/26 Specimen Type : BLOOD [facility] DIFF S 0.44 No comment enter ed. WSTRN (AUTO) [#/VOLUME] Ordering Pro vider: BANDAR SEN IN BLOOD Report Release d Date/Time: Jun 18, 2021 06:46 PM TS [facility]CS BY Reporting Lab: [facility] [place] [facility] AUTOMATED [address] [facility] [address] COUNT Performing Lab: [facility] [place] [facility] [address] [facility] [address] CBC AND BASOPHILS 0.07 0.01 - 06/26 Specimen Type: BLOOD [facility] DIFF [#/VOLUME] 0.13 No comment en tered. WSTRN (AUTO) IN BLOOD Ordering Provi mayra: SEN,BANDAR D [place] BY Report Released Date/Time: Jun 18, 2021 06:46 PM TS [facility]CS AUTOMATED Reporting Lab : [facility] [place] [facility] COUNT [address] [facility] [address] Performing Lab: [facility] [place] [facility] [address] [facility] [address] CBC AND IMMATURE 0.5 06/26 Specimen Type: BLOOD [facility] DIFF GRANULOCYT /2020 No comment en tered. WSTRN (AUTO) ES/100 Ordering Provid er: BANDAR SEN LEUKOCYTES Report Relea sed Date/Time: Jun 18, 2021 06:46 PM TS [facility] IN BLOOD Reporting Lab: [facility] [place] [facility] BY [address] [facility] [address] AUTOMATED Performing La b: [facility] [place] [facility] COUNT [address] [facility] [address] CBC AND IMMATURE 0.03 0.00 - 06/26 Specimen Type: BLOOD [facility] DIFF GRANULOCYT 0.06 No comment en tered. WSTRN (AUTO) ES Ordering Provid er: BANDAR SEN [#/VOLUME] Report Relea sed Date/Time: Jun 18, 2021 06:46 PM TS [facility] IN BLOOD Reporting Lab: [facility] [place] [facility] [address] [facility] [address] Performing Lab: [facility] [place] [facility] [address] [facility] [address] Vital Signs Combined list of inpatient and outpatient Vital Signs from Department of Defense and Veterans Affairs, ranging from 12 months to all on record, depending upon the facility. Vital Sign Value Date Comments Source SYSTOLIC BLOOD PRESSURE 142 01/10/2022 [facility]09[facility] [place] [facility] DIASTOLIC BLOOD PRESSURE 88 01/10/2022 [facility] [place] PULSE OXIMETRY 98% 01/10/2022 [facility]09[facility] PAIN 0 01/10/2022 [facility] TEMPERATURE 98.4 01/10/2022 [facility] PULSE 84 01/10/2022 [facility] RESPIRATION 16 01/10/2022 [facility] WEIGHT 171.2 11/28/2021 [facility] 08[facility]28[facility] BMI 29kg/m2 11/28/2021 [facility] 08[facility] WEIGHT 174.2 11/03/2021 [facility] 10[facility]27[facility] BMI 30kg/m2 11/03/2021 [facility] 10[facility]27[facility] [place] [facility] Encounters Combined list of: 1) Encounters from Department of Veterans Affairs facilities going back up to the last 18 months. 2) Encounters from the Department of Defense facilities going back up to 280 months. Location Location Encounter Encounter Reason Attending ADM DC Stat us Disposition Source Details Type Number For Provider Date Date Visit OUTPATIENT [id number] 07/12 Released w /o Theater /2004 [place] [address]-8.63 Diagnos COOK,ALLIS 04/07 [facility] 30 MINUTES [id number] is: ON CNTR L ICD-10- WSTRN CM [place] F43.12 SETS Post-tr HCS aumatic stress disorde r, chronic
wi th Provide r Comment s: Chronic post-tr aumatic stress disorde r (SCT [id number] ) [place] [address]-6.63 Diagnos JUAN JOSÉ LUCIANO 04/07 [facility] W E/M 30 [id number] is: T O CNTRL MIN ICD-10- WSTRN CM [place] F43.12 SETS Post-tr HCS aumatic stress disorde r, chronic
wi th Provide r Comment s: Chronic post-tr aumatic stress disorde r (SCT [id number] 04) ADM 55546-3.63 Diagnos RTACIE,F 04/07 [facility] SARSCOV2 [id number] is: ARR CNTRL 100MCG/0.5 ICD-10- WSTRN ML2ND CM Z23 [place] Encount SETS er for HCS immuniz ation<b r/>with Provide r Comment s: Encount er for Immuniz ation RESIN TWO 93334-2.63 Diagnos LESLEE, 04/11 [facility] SURFACES-A 1.76801867 is: CN TRL NTERIOR ICD-10- WSTRN CM [place] K08.411 SETS Partial HCS loss of teeth due to trauma, class I
w ith Provide r Comment s: Partial loss of teeth due to trauma, class I BRIDGE 28866-4.63 Kvng CAMILO, 04/11 V A REPAIR 1.94610559 is: CNTRL MATERIAL ICD-10- WSTRN FAIL CM [place] K08.411 SETS Partial HCS loss of teeth due to trauma, class I
w ith Provide r Comment s: Partial loss of teeth due to trauma, class I Outpatient 78510-8.63 04/12 [facility] En[facility] [id number] [facility] [place] 80605-4.63 04/17 [facility] Encounter [id number] [facility] [place] BRIEF 28677-7.63 Diagnos [facility], 04/18 [facility] ASSESSMENT 1.80344163 is: CN TRL ICD-10- WSTRN CM [place] K08.411 SETS Partial HCS loss of teeth due to trauma, class I
w ith Provide r Comment s: Partial loss of teeth due to trauma, class I OFFICE O/P 41422-4.63 Diagnos EDENILSON CASTAÑEDA 04/24 [facility] EST LOW 1.66688946 is: MMED JAWED /2020 CN TRL 20-29 MIN ICD-10- WSTRN CM [place] M19.90 SETS Unspeci HCS fied osteoar thritis , unspeci fied site
with Provide r Comment s: Degener ative arthrit is (SCT [id number] 06) HC PRO 56693-1.63 Diagnos STEPH WILCOX 04/27 V A PHONE CALL 1.91277431 is: [place] D CNTR L 5-10 MIN ICD-10- WSTRN CM [place] Z71.89 SETS Other HCS specifi ed associate professor of counseling ing<br/ >with Provide r Comment s: Other specifi ed associate professor of counseling ing Outpatient 63015-8.63 04/27 [facility] Encounter [id number] /2021 [facility] [place] DENTURES 73115-5.63 Diagnos LAURENER, 04/28 [facility] MAXILL 1.60039408 is: VINCENT CNTRL PART METAL ICD-10- WSTRN CM [place] K08.411 SETS Partial HCS loss of teeth due to trauma, class I
w ith Provide r Comment s: Partial loss of teeth due to [place], [place] [address]-8. Diagnos MARCY,P 05/03 [facility] W E/M 60 1.89844448 is: BRENDA B CNTR L MIN ICD-10- WSTRN CM [place] F33.8 SETS Other HCS recurre nt depress anusha disorde rs
with Provide r Comment s: Depress anusha disorde r ([facility] [id number] 7) THERAPEUTI Diagnos DANICA SHEPARD 05/16 [facility] C 1.51288169 is: LLY CNTRL EXERCISES ICD-10- WSTRN CM [place] M19.90 SETS Unspeci HCS fied osteoar thritis , unspeci fied site
with Provide r Comment s: Degener ative arthrit is (SCT [id number] 06) Outpatient 56873-7.63 05/18 [facility] Encounter [id number] /2021 [facility] [place] Outpatient 38204-9.63 05/18 [facility] Encounter [id number] /2021 [facility] [place] THERAPEUTI 78351-4.63 Diagnos VEL,M 05/24 [facility] C 1.44143446 is: JEANETTE CNTRL EXERCISES ICD-10- WSTRN CM [place] M25.571 SETS Pain in HCS right ankle and joints of right foot
with Provide r Comment s: Pain in right ankle [place] [address]-0.63 Diagnos CAMPONOGAR 05/29 [facility] 60 MINUTES 1.07280448 is: Bushra,RENE C NTRL ICD-10- WSTRN CM [place] F43.12 SETS Post-tr HCS aumatic stress disorde r, chronic
wi th Provide r Comment s: Chronic post-tr aumatic stress disorde r (SCT [id number] 04) THERAPEUTI 24385-9.63 Diagnos WILLIMAGALIEEMIL 06/06 [facility] C 1.32178792 is: LIE E CNTRL EXERCISES ICD-10- WSTRN CM [place] M25.511 SETS Pain in HCS right shoulde r
w ith Provide r Comment s: Pain in right Shoulde r THERAPEUTI 61272-9.63 Diagnos Naren CROWDER 06/06 [facility] C 1.01907137 is: JEANETTE CNTRL EXERCISES ICD-10- WSTRN CM [place] M25.571 SETS Pain in HCS right ankle and joints of right foot
with Provide r Comment s: Pain in right ankle and joints of right foot THERAPEUTI 25033-3.63 Diagnos Naren CROWDER 06/12 [facility] C 1.86707747 is: JEANETTE CNTRL EXERCISES ICD-10- WSTRN CM [place] M25.571 SETS Pain in HCS right ankle and joints of right foot
with Provide r Comment s: Pain in right ankle and joints of right foot Outpatient 22454-0.63 06/14 [facility] Encounter [id number] [facility] [place] Outpatient 44078-2.63 06/19 [facility] Encounter [id number] [facility] [place] [facility] LIMIT ORAL 54442-5.63 Diagnos ALYX MARROQUIN 06/19 [facility] EVAL 1.60328169 is: CNTRL PROBLM ICD-10- WSTRN FOCUS CM [place] K08.9 SETS Disorde HCS r of teeth and support ing structu res, unspeci fied
with Provide r Comment s: Disorde r of teeth and support ing structu [place], [place] [address]-5.63 Diagnos Francisco VIDAL 06/20 [facility] W E/M 30 1.92408607 is: BRENDA B CNTR L MIN ICD-10- WSTRN CM [place] F33.8 SETS Other HCS recurre nt depress anusha disorde rs
with Provide r Comment s: Depress anusha disorde r (SCT [id number] 7) ULTRASOUND 61763-2 Diagnos MACHMAGALIE,EMIL 06/26 [facility] THERAPY 1.00432770 is: LIE E CNTRL ICD-10- WSTRN CM [place] M25.511 SETS Pain in HCS right shoulde r
w ith Provide r Comment s: Pain in right Shoulde r Outpatient 72132-4.63 06/28 [facility] Encounter [id number] /2021 [facility] [place] Outpatient 69271-9.63 06/29 [facility] Encounter [id number] [facility] [place] CROWN 26724-363 Diagnos SEVERIANOEITER, 06/30 [facility] REPAIR 1.99445605 is: VINCENT CNTRL MATERIAL ICD-10- WSTRN FAIL CM [place] K08.9 SETS Disorde HCS r of teeth and support ing structu res, unspeci fied
with Provide r Comment s: Disorde r of teeth and support ing structu res, unspeci fied Outpatient 29943-4.63 07/07 [facility] Encounter [id number] [facility] [place] [address]-663 Diagnos CAMPONOGAR 07/13 [facility] 30 MINUTES 1.62979739 is: A,RENE C NTRL ICD-10- WSTRN CM [place] F43.12 SETS Post-tr HCS aumatic stress disorde r, chronic
wi th Provide r Comment s: Posttra umatic stress disorde r (SCT [id number] 3) Outpatient 41459-3.63 08/02 [facility] Encounter [id number] [facility] [place] Outpatient 81702-2.63 08/14 [facility] Encounter [id number] [facility] Outpatient 31330-0.63 08/14 [facility] Encounter [id number] [facility] [place] Outpatient 74836-7.63 08/14 [facility] Encounter [id number] /2021 [facility] [place] PONTIC 93815-7.63 Diagnos HOHREITER, 08/15 V A PROVISIONA 1.98833545 is: VINCENT CN TRL L ICD-10- WSTRN CM [place] K08.431 SETS Partial HCS loss of teeth due to caries, class I
w ith Provide r Comment s: Partial loss of teeth due to caries, class I Outpatient 45625-1.63 08/17 [facility] Encounter [id number] [facility] [place] Outpatient 12143-7.63 08/17 [facility] Encounter [id number] [facility] [place] Outpatient 41621-2.63 08/23 [facility] Encounter [id number] [facility] [place] Outpatient 74970-2.63 08/24 [facility] Encounter [id number] [facility] Outpatient 46927-1.63 08/24 [facility] Encounter [id number] /2021 [facility] [place] ALCOHOL/DR 86618-4.63 Diagnos LEXA COHEN 08/24 DC UG SERVICE 1.27473925 is: IFER N CNT RL 15 MIN ICD-10- WSTRN CM [place] F10.20 SETS Alcohol HCS depende nce, uncompl icated< br/>wit h Provide r Comment s: Alcohol depende nce (SCT [id number] 3) Outpatient 56580-1.63 08/31 [facility] Encounter [id number] [facility] [place] GROUP 39509-8.63 Diagnos LEXA COHEN 09/07 [facility] PSYCHOTHER 1.08243246 is: IFER N CNT RL APY ICD-10- WSTRN CM [place] F43.12 SETS Post-tr HCS aumatic stress disorde r, chronic
wi th Provide r Comment s: Chronic post-tr aumatic stress disorde r (SCT [id number] 04) Outpatient 24866-809/14 [facility] Encounter [id number] [facility] [place] Out[facility] 62118-0.63 09/15 [facility] Encounter [id number] [facility] [place] GROUP 28392-6.63 Diagnos LEXA COHEN 09/21 [facility] PSYCHOTHER 1.32547165 is: IFER N CNT RL APY ICD-10- WSTRN CM [place] F10.20 SETS Alcohol HCS depende nce, uncompl icated< br/>wit h Provide r Comment s: Alcohol depende nce, uncompl icated (ICD-10 -CM F10.20) Outpatient 79765-063 09/27 [facility] Encounter [id number] [facility] [place] 71396-1.63 Diagnos LEXA COHEN 09/28 [facility] PSYCHOTHER 1.10117134 is: IFER N CNT RL APY ICD-10- WSTRN CM [place] F43.12 SETS Post-tr HCS aumatic stress disorde r, chronic
wi th Provide r Comment s: Post-tr aumatic stress disorde r, chronic (ICD-10 -CM F43.12) [place] [address]-8 Diagnos MARCYP 10/05 [facility] W E/M 30 1.63976126 is: BRENDA B CNTR L MIN ICD-10- WSTRN CM [place] F33.8 SETS Other HCS recurre nt depress anusha disorde rs
with Provide r Comment s: Depress anusha disorde r (SCT [id number] 7) GROUP 57943-3.63 Diagnos LEXA COHEN 10/05 [facility] PSYCHOTHER 1.48700349 is: IFER N CNT RL APY ICD-10- WSTRN CM [place] F43.12 SETS Post-tr HCS aumatic stress disorde r, chronic
wi th Provide r Comment s: Post-tr aumatic stress disorde r, chronic (ICD-10 -CM F43.12) Outpatient 14567-0.63 10/10 [facility] Encounter [id number] /2021 [facility] [place] EYE 54115-4.63 Diagnos NAGA RANDALL 10/17 [facility] EXAM&TX 1.90092426 is: Y J CNTRL ESTAB PT ICD-10- WSTRN 1/>VST CM [place] H25.13 SETS Age-rel HCS ated nuclear catarac t, bilater al
with Provide r Comment s: Age-Rel ated Nuclear Catarac t, Bilater al GROUP 51778-8.63 Diagnos LEXA COHEN 10/19 [facility] PSYCHOTHER 1.74759705 is: IFER N CNT RL APY ICD-10- WSTRN CM [place] F10.20 SETS Alcohol HCS depende nce, uncompl icated< br/>wit h Provide r Comment s: Alcohol depende nce, uncompl icated (ICD-10 -CM F10.20) HC PRO 16334-9.63 Diagnos ARIC, 10/23 V A PHONE CALL 1.81352038 is: CN TRL 5-10 MIN ICD-10- WSTRN CM [place] Z71.89 SETS Other HCS specifi ed associate professor of counseling ing<br/ >with Provide r Comment s: Other specifi ed associate professor of counseling ing Outpatient 98226-8.63 10/23 [facility] Encounter [id number] [facility] [place] [facility] Outpatient 18611-9.63 10/31 [facility] Encounter [id number] /2021 [facility] [place] 15170-4.63 Diagnos LEXA COHEN 11/02 [facility] PSYCHOTHER 1.40099080 is: IFER N CNT RL APY ICD-10- WSTRN CM [place] F43.12 SETS Post-tr HCS aumatic stress disorde r, chronic
wi th Provide r Comment s: Post-tr aumatic stress disorde r, chronic (ICD-10 -CM F43.12) Outpatient 05958-4.63 11/03 [facility] Encounter [id number] [facility] [place] [facility] OFFICE O/P 46810-8.63 Diagnos JOANA SEN 11/03 [facility] EST SF 1.54514386 is: RD D /2020 CNTRL 10-19 MIN ICD-10- WSTRN CM [place] M19.90 SETS Unspeci HCS fied osteoar thritis , unspeci fied site
with Provide r Comment s: Mario roman arthriej is ([facility] [id number] 06) PROSTHETIC 93059-3.63 Diagnos Naren CROWDER 11/03 [facility] TRAING 1ST 1.03784192 is: JEANETTE /2020 CNTR L ENC ICD-10- WSTRN CM [place] M25.571 SETS Pain in HCS right ankle and joints of right foot
with Provide r Comment s: Pain in right ankle and joints of right foot Outpatient 77503-6.63 11/08 [facility] Encounter [id number] /2021 [facility] [place] [facility] Outpatient 71999-9.63 11/09 [facility] Encounter [id number] [facility] [place] 49484-3.63 Diagnos LEXA COHEN 11/09 [facility] PSYCHOTHER 1.74975956 is: IFER N /2020 CNT RL APY ICD-10- WSTRN CM [place] F43.12 SETS Post-tr HCS aumatic stress disorde r, chronic
wi th Provide r Comment s: Post-tr aumatic stress disorde r, chronic (ICD-10 -CM F43.12) Outpatient 89113-4.63 11/09 [facility] Encounter [id number] /2021 [facility] [place] Outpatient 37289-0.63 11/13 [facility] Encounter [id number] [facility] [place] [facility] Outpatient 61096-5.63 11/16 [facility] Encounter [id number] [facility] [place] [facility] OFFICE O/P 90642-6.63 Diagnos JOANA SEN 11/28 [facility] EST SF 1.96130228 is: RD D CNTRL 10-19 MIN ICD-10- WSTRN CM [place] G25.81 SETS Restles HCS s legs syndrom e
w ith Provide r Comment s: Restles s legs syndrom e (SCT [id number] 8) [place] [address]-0.63 Diagnos MARCY,P 11/28 [facility] W E/M 30 1.37459450 is: BRENDA CNTR L MIN ICD-10- WSTRN CM [place] G47.00 SETS Insomni HCS a, unspeci fied
with Provide r Comment s: Insomni a (SCT [id number] 01) OFFICE O/P 50040-463 Diagnos SOHAN ANDINO 11/28 [facility] EST 1.09715775 is: A CNTRL MINIMAL ICD-10- WSTRN PROB CM Z23 [place] Encount SETS er for HCS immuniz ation<b r/>with Provide r Comment s: Encount er for Immuniz ation GROUP 16253-9.63 Diagnos LEXA COHEN 12/07 [facility] PSYCHOTHER 1.67581048 is: SRINIVASAN CNT RL APY ICD-10- WSTRN CM [place] F43.12 SETS Post-tr HCS aumatic stress disorde r, chronic
wi th Provide r Comment s: Chronic post-tr aumatic stress disorde r (SCT [id number] 04) LIMIT ORAL 93891-4.63 Diagnos LESLEE, 12/07 [facility] EVAL 1.65003139 is: VINCENT CNTRL PROBLM ICD-10- WSTRN FOCUS CM [place] K08.411 SETS Partial HCS loss of teeth due to trauma, class I
w ith Provide r Comment s: Partial loss of teeth due to trauma, class I Outpatient 54263-1.63 12/08 [facility] Encounter [id number] [facility] [place] 72538-2.63 Diagnos LEXA COHEN 12/14 [facility] PSYCHOTHER 1.83164443 is: IFTHO N CNT RL APY ICD-10- WSTRN CM [place] F10.20 SETS Alcohol HCS depende nce, uncompl icated< br/>wit h Provide r Comment s: Alcohol depende nce, uncompl icated (ICD-10 -CM F10.20) GROUP 05448-4.63 Diagnos NOEL,LEXA 12/21 [facility] PS[facility]CHOTHER 1.29364652 is: IFER N CNT RL APY ICD-10- WSTRN CM [place] F10.20 SETS Alcohol HCS depende nce, uncompl icated< br/>wit h Provide r Comment s: Alcohol depende nce, uncompl icated (ICD-10 -CM F10.20) Outpatient 60185-1.63 12/28 [facility] Encounter [id number] [facility] [place] Out[facility] 83020-3.63 12/29 [facility] Encounter [id number] /2022 [facility] [place] Outpatient 05751-0.63 12/29 [facility] Encounter [id number] /2022 [facility] Outpatient 43347-3.63 01/02 [facility] Encounter [id number] [facility] Outpatient 41336-3.63 01/06 [facility] Encounter [id number] [facility] OFFICE O/P 45780-7.63 Diagnos JOANA SEN 01/10 [facility] EST SF 1.61075421 is: RD D CNTRL 10-19 MIN ICD-10- WSTRN CM [place] L30.8 SETS Other HCS specifi ed dermati tis<br/ >with Provide r Comment s: Other specifi ed Dermati tis Outpatient 79645-1.63 01/10 [facility] Encounter [id number] [facility] 87916-9.63 Diagnos NOEL,LEXA 01/11 [facility] PSYCHOTHER 1.51292224 is: IFER N CNT RL APY ICD-10- WSTRN CM [place] F10.20 SETS Alcohol HCS depende nce, uncompl icated< br/>wit h Provide r Comment s: Alcohol depende nce, uncompl icated (ICD-10 -CM F10.20) GROUP 98930-3.63 Diagnos LEXA COHEN 01/18 [facility] PSYCHOTHER 1.01395267 is: IFER N CNT RL APY ICD-10- WSTRN CM [place] F10.20 SETS Alcohol HCS depende nce, uncompl icated< br/>wit h Provide r Comment s: Alcohol depende nce, uncompl icated (ICD-10 -CM F10.20) GROUP 37462-0.63 Diagnos LEXA COHEN 01/25 [facility] PSYCHOTHER 1.09802831 is: IFER CNT RL APY ICD-10- WSTRN CM [place] F10.20 SETS Alcohol HCS depende nce, uncompl icated< br/>wit h Provide r Comment s: Alcohol depende nce, uncompl icated (ICD-10 -CM F10.20) Outpatient 39692-1.63 03 [facility] Encounter [id number] /2022 [facility] 32279-1.63 03 [facility] Encounter [id number] /2022 [facility] Out[facility] 95025-7.63 02/02 [facility] Encounter [id number] /2022 [facility] Outpatient 93483-2.63 02/02 [facility] Encounter [id number] /2022 [facility] Outpatient 54706-3.63 02/06 [facility] Encounter [id number] /2022 [facility] Outpatient 54668-4.63 02/06 [facility] Encounter [id number] /2022 [facility] Outpatient 75784-6.63 02/07 [facility] Encounter [id number] /2022 [facility] CUSTOM 52075-4.63 Diagnos LESLEE, 02/08 V A ABUTMENT [id number] is: VINCENT [facility] ICD-10- [facility] K08.431 SETS Partial HCS loss of teeth due to caries, class I
w ith Provide r Comment s: Partial loss of teeth due to caries, class I Outpatient 57492-6.63 02/08 [facility] En[facility] [id number] /2022 [facility] GROUP 62258-6.63 Diagnos LEXA COHEN 02/08 [facility] PSYCHOTHER [id number] is: IFER N CNT RL APY ICD-10- [facility] F10.20 SETS Alcohol HCS depende nce, uncompl icated< br/>wit h Provide r Comment s: Alcohol depende nce, uncompl icated (ICD-10 -CM F10.20) HC PRO 81890-8 Diagnos SHAISTA,CHR 02/09 [facility] PHONE CALL [id number] is: ISTINE F E R [facility] 5-10 MIN 98 ICD-10- CLINIC CM (631GE) Z51.81 Encount er for therape utic drug level monitor ing<br/ >with Provide r Comment s: Therape utic Drug Level Monitor ing Outpatient 11692-8.63 02/12 [facility] En[facility] [id number] [facility] OFFICE O/P 56598-3. Diagnos SOHAN ANDINO 02/12 [facility] EST [id number] is: A [facility] MINIMAL ICD-10- [facility] PROB [facility] [place] Z71.89 SETS Other HCS specifi ed associate professor of counseling ing<br/ >with Provide r Comment s: Energy Infrastructure Engineer ing,Oth er Specifi ed Outpatient 30437-0.63 02/12 [facility] Encounter [id number] /2022 [facility] Outpatient 51517-6.63 02/13 [facility] Encounter [id number] /2022 [facility] [place] [place] [address]-6.63 Diagnos MARCY,P 02/21 [facility] W E/M 30 [id number] is: BRENDA B [facility] MIN ICD-10- [facility] F33.8 SETS Other HCS recurre nt depress anusha disorde rs
with Provide r Comment s: Depress anusha disorde r ([facility] [id number]) Outpatient 73064-7.63 02/26 [facility] En[facility] [id number] /2022 [facility] HC PRO 83188-8.63 Diagnos WALKER NAVARRO 03/08 V A PHONE CALL [id number] is: JENNIFER [facility] 5-10 MIN ICD-10- [facility] Z71.89 SETS Other HCS specifi ed associate professor of counseling ing<br/ >with Provide r Comment s: Other specifi ed associate professor of counseling ing Outpatient 72772-1.63 03/12 [facility] En[facility] 1. [facility] Outpatient 25130-2.63 03/12 [facility] Encounter [id number] /2022 [facility] Outpatient 00279-7.63 03/13 [facility] En[facility] 1. [facility] Outpatient 75074-5.63 03/15 [facility] En[facility] [id number] [facility] Outpatient 31285-3.63 03/15 [facility] En[facility] 1. [facility] SELF CARE 25943-5.63 Diagnos FRANCOORIANA 03/16 [facility] MNGMENT [id number] is: A [facility] TRAINING ICD-10- [facility] M79.671 SETS Pain in HCS right foot
with Provide r Comment s: Pain in right Foot OFFICE O/P 62576-8.63 Diagnos OLNEA ANDINOE 03/19 [facility] EST [id number] is: A [facility] MINIMAL ICD-10- [facility] PROB CM [place] Z71.89 SETS Other HCS specifi ed associate professor of counseling ing<br/ >with Provide r Comment s: Energy Infrastructure Engineer ing,Oth er Specifi ed Outpatient 43053-2.63 03/19 [facility] Encounter [id number] /2022 [facility] OFFICE O/P 64032-0.63 Diagnos SOHAN ANDINO 03/19 [facility] EST [id number] is: A [facility] MINIMAL ICD-10- WSTRN PROB CM [place] Z71.89 SETS Other HCS specifi ed associate professor of counseling ing<br/ >with Provide r Comment s: Energy Infrastructure Engineer ing,Oth er Specifi ed Outpatient [id number] 03/22 [id number] [facility]20[facility] [place] [facility] GAIT 73415-5.63 Diagnos ORIANA GAMEZ 03/26 [facility] TRAINING [id number] is: A CNTR L THERAPY ICD-10- WSTRN CM [place] M79.671 SETS Pain in HCS right foot
with Provide r Comment s: Pain in right Foot Outpatient [id number] 03/27 [facility] Encounter [id number] /2022 [facility] [place] Outpatient 65299-9.63 03/29 [facility] Encounter [id number] /2022 [facility] [place] Outpatient 45005-2.63 04/12 [facility] Encounter [id number] /2022 [facility] Outpatient 67258-0.63 04/19 [facility] Encounter [id number] [facility] [place] GROUP 47671-0.63 Diagnos NOELLEXA 04/19 [facility] PSYCHOTHER [id number] is: IFER N CNT RL APY ICD-10- WSTRN CM [place] F10.20 SETS Alcohol HCS depende nce, uncompl icated< br/>wit h Provide r Comment s: Alcohol depende nce, uncompl icated (ICD-10 -CM F10.20) Outpatient [id number] 04/19 [facility] Encounter [id number] /2022 [facility] [place] 07586-5.63 Diagnos LEXA COHEN 04/26 [facility] PSYCHOTHER [id number] is: IFER N CNT RL APY ICD-10- WSTRN CM [place] F10.20 SETS Alcohol HCS depende nce, uncompl icated< br/>wit h Provide r Comment s: Alcohol depende nce, uncompl icated (ICD-10 -CM F10.20) Outpatient 20088-2.63 04/26 [facility] Encounter [id number] /2022 [facility] Outpatient 80930-5.63 05/02 [facility] Encounter [id number] /2022 [facility] Outpatient 55009-7.63 05/03 [facility] Encounter [id number] /2022 [facility] Outpatient 22749-4.63 05/04 [facility] Encounter [id number] /2022 [facility] Outpatient 88228-4.63 05/07 [facility] Encounter [id number] /2022 [facility] INTRAORAL 42106-2.63 Diagnos LESLEE, 05/08 [facility] PERIAPICAL [id number] is: VINC CN TRL FIRST ICD-10- WSTRN CM [place] K08.411 SETS Partial HCS loss of teeth due to trauma, class I
w ith Provide r Comment s: Partial loss of teeth due to trauma, class I GROUP 79746-1.63 Diagnos LEXA COHEN 05/10 [facility] PSY[facility]OTHER [id number] is: IFER N CNT RL APY ICD-10- [facility]STRN CM [place] F10.20 SETS Alcohol HCS depende nce, uncompl icated< br/>wit h Provide r Comment s: Alcohol depende nce, uncompl icated (ICD-10 -CM F10.20) Outpatient 70283-3.63 05/11 [facility] Encounter [id number] [facility] [place] OFFICE O/P 21584-9.63 Diagnos LEXA COHEN 05/17 [facility] EST MOD [id number] is: IFER N CNTRL 30-39 MIN ICD-10- WSTRN CM [place] F10.20 SETS Alcohol HCS depende nce, uncompl icated< br/>wit h Provide r Comment s: Alcohol depende nce, uncompl icated (ICD-10 -CM F10.20) Outpatient 38065-3.63 05/24 [facility] Encounter [id number] /2022 [facility] [place] [address]-2.63 Diagnos MARCY,P 05/30 [facility] W E/M 30 [id number] is: BRENDA B CNTR L MIN ICD-10- WSTRN CM [place] F33.8 SETS Other HCS recurre nt depress anusha disorde rs
with Provide r Comment s: Depress anusha disorde r (SCT [id number] 7) GROUP 58357-8.63 Diagnos LEXA COHEN 05/31 [facility] PSY[facility] [id number] is: IFER CNT RL APY ICD-10- WSTRN CM [place] F10.20 SETS Alcohol HCS depende nce, uncompl icated< br/>wit h Provide r Comment s: Alcohol depende nce, uncompl icated (ICD-10 -CM F10.20) Outpatient 98232-9.63 06/08 [facility] Encounter [id number] /2022 [facility] [place] 43874-1.63 Diagnos LEXA COHEN 06/14 [facility] PSYCHOTHER [id number] is: IF N CNT RL APY ICD-10- WSTRN CM [place] F10.20 SETS Alcohol HCS depende nce, uncompl icated< br/>wit h Provide r Comment s: Alcohol depende nce, uncompl icated (ICD-10 -CM F10.20) GROUP 70389-4.63 Diagnos LEXA COHEN 06/21 [facility] PSYCHOTHER [id number] is: IF CNT RL APY ICD-10- WSTRN CM [place] F10.20 SETS Alcohol HCS depende nce, uncompl icated< br/>wit h Provide r Comment s: Alcohol depende nce (SCT [id number] 3) CASE 20812-2.63 Diagnos ARCE,CL 06/22 [facility] MGMT-ORAL [id number] is: EONICE CN[facility] HEALTH LIT ICD-10- WSTRN CM [place] K03.6 SETS Deposit HCS s [accret ions] on teeth<b r/>with Provide r Comment s: Deposit s [accret ions] on teeth Outpatient 79825-5.63 06/22 [facility] Encounter [id number] /2022 [facility] [place] Outpatient 56975-7.63 06/22 [facility] Encounter [id number] [facility] [place] 52513-7.63 Diagnos LEXA COHEN 06/28 [facility] PSYCHOTHER [id number] is: IFER N CNT RL APY ICD-10- WSTRN CM [place] F10.20 SETS Alcohol HCS depende nce, uncompl icated< br/>wit h Provide r Comment s: Alcohol depende nce (SCT [id number] 3) GROUP 87600-9.63 Diagnos LEXA COHEN 07/05 [facility] PSYCHOTHER [id number] is: IFER N CNT RL APY ICD-10- WSTRN CM [place] F10.20 SETS Alcohol HCS depende nce, uncompl icated< br/>wit h Provide r Comment s: Alcohol depende nce (SCT [id number] 3) Outpatient 67579-4.63 07/05 [facility] Encounter [id number] [facility] [place] Outpatient 14742-9.63 07/06 [facility] Encounter [id number] /2022 [facility] [place] [facility] Outpatient 12535-5.63 07/10 [facility] Encounter [id number] /2022 [facility] [place] Outpatient 25880-7.63 07/12 [facility] Encounter [id number] /2022 [facility] [place] Outpatient 86505-4.63 07/12 [facility] Encounter [id number] [facility] [place] 47938-3.63 Diagnos LEXA COHEN 07/12 [facility] PSYCHOTHER [id number] is: IFER N CNT RL APY ICD-10- WSTRN CM [place] F10.20 SETS Alcohol HCS depende nce, uncompl icated< br/>wit h Provide r Comment s: Alcohol depende nce (SCT [id number] 3) Outpatient 64042-2.63 Diagnos MARCY,P 07/17 [facility] Encounter [id number] is: BRENDA B CNT RL ICD-10- WSTRN CM [place] F33.8 SETS Other HCS recurre nt depress anusha disorde rs
with Provide r Comment s: Depress anusha disorde r (SCT [id number] 7) Outpatient 06701-3.63 07/18 [facility] Encounter [id number] /2022 [facility] [place] Outpatient 85870-5.63 07/20 [facility] Encounter [id number] /2022 [facility] Outpatient 49978-0.63 07/23 [facility] Encounter [id number] /2022 [facility] Outpatient 11410-9.63 07/24 [facility] Encounter [id number] /2022 [facility] [place] [facility] OFFICE O/P 24329-5.63 Diagnos THUSOHAN 07/24 [facility] EST [id number] is: A CNTRL MINIMAL ICD-10- WSTRN PROB CM [place] M25.50 SETS Pain in HCS unspeci fied joint<b r/>with Provide r Comment s: Joint Pain,Un spec Joint Outpatient 19260-1.63 07/25 [facility] Encounter [id number] /2022 [facility] [place] [facility] Outpatient 95056-0.63 07/26 [facility] Encounter [id number] [facility] [place] [facility] Outpatient 17030-0.63 07/26 [facility] Encounter [id number] /2022 [facility] [place] Outpatient 61725-7.63 08/02 [facility] Encounter [id number] /2022 [facility] [place] Outpatient 13758-0.63 08/20 [facility] Encounter [id number] /2022 [facility] [place] Outpatient 67750-5.63 08/21 [facility] Encounter [id number] [facility] [place] Outpatient 84822-9.63 08/21 [facility] Encounter [id number] [facility] [place] [facility] Outpatient 03715-5.63 08/22 [facility] Encounter [id number] [facility] [place] [facility] Outpatient 95624-7.63 08/28 [facility] Encounter [id number] /2021 [facility] [place] [facility] Procedures Combined list of: 1) Procedures from Department of Veterans Affairs facilities going back up to the last 18 months, not all [place] non-surgical procedures are included; 2) All procedures from the Department of Defense facilities. Procedure Procedure Type Code Date Perfomer Comments Sourc e TYPHOID VACCINE, 02/12/2005 Do D ACETONE-KILLED, DRIED (AKD), FOR SUBCUTANEOUS USE ([place] ) Social History Combined list of available smoking, tobacco, and other social history [facility]. Social History Response Date Comment Source Type Tobacco smoking VA-TOBACCO FORMER 01/10/2022 [facility] CN[facility] status NHIS USER [place] [facility] History of VA-TOBACCO QUIT 5 01/10/2022 [facility] tobacco use TO < 15 YRS [facility] [facility] History of VA-TOBACCO NEVER 01/02/2021 [facility]N tobacco use USED [facility] [facility] History of ORYX ADMIT TOBACCO 10/14/2019 [facility] tobacco use SCREEN NO [facility] [facility] History of VA-TOBACCO NEVER 10/13/2019 [facility] tobacco use USED [facility] [facility] History of VA-TOBACCO NEVER 02/16/2019 [facility] tobacco use USED [facility] [facility] History of CURRENT SMOKELESS 02/10/2018 [facility] tobacco use TOBACCO USER [facility] [facility] History of QUIT TOBACCO USE > 06/10/2017 [facility] tobacco use 7 YEARS AGO that he has never used History of QUIT TOBACCO USE 11/13/2016 [facility] tobacco use IN PAST YEAR History of CURRENT SMOKER 11/08/2016 [facility] tobacco use History of LIFETIME 10/24/2016 [facility] tobacco use NON-TOBACCO USER History of LIFETIME 06/14/2016 [facility] tobacco use NON-TOBACCO USER [facility] History of LIFETIME 10/19/2015 [facility] tobacco use NON-TOBACCO USER History of LIFETIME 06/29/2015 [facility] tobacco use NON-TOBACCO USER History of V1-PT DECLINES 05/19/2015 [facility] tobacco use TOBACCO CESSATION MEDS History of CURRENT SMOKER 05/17/2015 Chews 4x per day [facility] tobacco use since age 20. History of TOBACCO INPATIENT 02/22/2015 [facility] CNT [facility] STRN tobacco use NO USE 30 DAYS [place] [facility] History of LIFETIME 02/21/2015 [facility] tobacco use NON-TOBACCO [facility] History of TOBACCO INPATIENT 01/13/2015 [facility]N tobacco use NO USE 30 DAYS [place] [facility] History of TOBACCO INPATIENT 01/13/2015 [facility]N tobacco use NO USE 30 DAYS [place] [facility] History of QUIT TOBACCO >12 04/09/2013 [facility] tobacco use MO and <7 YRS AGO [facility] History of CURRENT NON-SMOKER 03/25/2013 [facility] tobacco use [facility] History of CURRENT NON-SMOKER 07/30/2012 [facility] tobacco use [facility] History of LIFETIME 12/29/2011 [facility] tobacco use NON-TOBACCO USER CLINIC History of LIFETIME 10/07/2010 [facility] tobacco use NON-TOBACCO USER CLINIC History of QUIT TOBACCO IN 04/05/2009 [facility] tobacco use THE LAST 12 MONTHS [facility] History of CURRENT NON-SMOKER 03/21/2009 [facility] tobacco use [facility] History of CURRENT TOBACCO 06/17/2007 [facility] tobacco use USER [facility] History of CURRENT NON-SMOKER 12/09/2006 [facility] tobacco use [facility] History of HISTORY OF SMOKING 01/17/2005 [facility]ESS [facility] tobacco use TOBACCO-QUIT 1984 [facility] [facility] History of LIFETIME 09/22/2002 Does use snuff on [place] CNT W STRN tobacco use NON-TOBACCO USER a regular basis. [place] This section is DoD an empty social history section. Plan of Care List of future care activities from Department of Veterans Affairs facilities. Additional future care activities may be listed in the Assessment and Plan section. Date/Time Care Activity Care Activity Detail Facility 10/23/2022 AMBULATORY - MEDICINE AMBULATORY - MEDICINE [facility]
--- OUTSIDE RECORDS SUMMARY | 2022-09-28 19:59 | XMS_ITS | Continuity of Care Document ---
:1960 Author Organization [facility] Address [address] [place] [address]- Care Team Providers Name Role Phone Yari MELENDREZ, Jp Nobles Primary Care Physician Encounter [facility] Date(s): 04/10/20 - 04/12/[address] [address]- [facility] Encounter Diagnosis Syncope (Final) - 04/10/20 Discharge Disposition: A-D/C Home Attending Physician: Nadine Adams MD Admitting Physician: Camelia MELENDREZ, Charles Tomlinson Referring Physician: Not on Staff, Referring MD Allergies, Adverse Reactions, Alerts No Known Medication Allergies Immunizations Not Given Vaccine Date Status Refusal Reason pneumococcal 23-valent vaccine 04/12/20 Not Given P atient Refuses Medications allopurinol 100 mg oral tablet 100 mg, 1, tablet, By Mouth, Daily, Maintenance, 04/11/20 16:41:00 EDT Start Date: 04/11/20 Status: Orderedcolchicine 0.6 mg oral tablet 1.2 mg, 2, tablet, By Mouth, Daily, at the first sign of a gout flare followed by 0.6 mg one hour later, Maintenance, 04/11/20 16:41:00 EDT Start Date: 04/11/20 Status: Ordereddiclofenac 1% topical gel = 2 Gm, Topically, 3 times a day, PRN as needed, right shoulder pain, Maintenance, 04/11/20 16:42:00EDT, Gel Start Date: 04/11/20 Status: Orderedlisinopril 20 mg oral tablet 20 mg, 1, tablet, By Mouth, Daily, Maintenance, 04/11/20 16:43:00 EDT Start Date: 04/11/20 Status: Orderedpramipexole 0.125 mg oral tablet 1 tablet = 0.125 mg, By Mouth, Daily at bedtime, 2-3 hours before bedtime, Maintenance, 04/11/20 16:44:00 EDT, Tablet Start Date: 04/11/20 Status: OrderedtraZODone 100 mg oral tablet 200 mg, 2, tablet, By Mouth, Daily at bedtime, PRN, Maintenance, anxiety/sleep, 04/11/20 16:47:00 EDT Start Date: 04/11/20 Status: Orderedvenlafaxine 37.5 mg oral capsule, extended release 112.5 mg, 3, capsule, By Mouth, Daily, Maintenance, 04/11/20 16:48:00 EDT Start Date: 04/11/20 Status: Orderedzolpidem 5 mg oral tablet 1 tablet = 5 mg, By Mouth, Daily at bedtime, PRN as needed for sleep, Maintenance, 04/11/20 16:48:00EDT, Tablet Start Date: 04/11/20 Status: Ordered Results Radiology Reports Exam Date Time Procedure Performing Provider Status 04/11/20 3:05 PM Chest 2 Views Frontal and Lat Alex Lei (Verified) Notes:(Chest 2 Views Frontal and Lat) Reason For Exam: Shortness of Breath RESULT: Chest 2 Views Frontal and Lat Chest 2 Views Frontal and Lat INDICATION: Shortness of Breath. CLINICAL QUESTION: Pneumothorax. HPI: unwitnessed fall, + LOC, became unresponsive and hypotensive.. Other Objective Findings: Alert and awake, C-collar in place, oriented to self, location and month, following commands and answering quesions apprp, denying all pain, no SOB, NAD at this time. COMPARISON: 04/10/2020. FINDINGS: LINES AND TUBES: None. LUNGS AND PLEURA: Clear lungs. Normal pulmonary vascularity. No pleural effusion. No pneumothorax. HEART, MEDIASTINUM AND JOSE: Heart is normal in size. Normal mediastinal and hilar contour. BONES AND SOFT TISSUES: No acute osseous abnormality. IMPRESSION: No acute abnormality. I have personally reviewed the images and I agree with this report. WSN: [id number] Ordering Physician: Srinath Burgos Dictated By: Fabián Medel MD Dictated Date/Time: 04/11/20 3:21 pm Reviewed By: Shon Frazier MD Signed By: Shon Frazier MD Signed Date/Time: 04/11/20 3:26 pm Transcribed By: CHAPARRITA Transcribed Date/Time: 04/11/20 3:09 pm Exam Date Time Procedure Performing Provider Status 04/10/20 10:28 PM Chest Portable Marty TripathiaAlexey Gasca ([facility] ed) Notes:(Chest Portable) Reason For Exam: Pain;Other:RESULT: Chest Portable Chest Portable Reason: Other:; Pain; Clinical Question(s): Other:; Fracture, pneumothorax, pulmonary contusion COMPARISON: None. FINDINGS: LINES AND TUBES: None. LUNGS AND PLEURA: Examination is limited by low lung volumes and positioning with the clavicular heads overlying the lung apices. Given this limitation there is a questionable right apical pneumothorax versus artifact. Otherwise the lungs are clear. No pleural effusion. HEART, MEDIASTINUM AND JOSE: Heart is normal in size. Normal mediastinal and hilar contour. BONES AND SOFT TISSUES: Slight deformity of the lateral right second rib raising concern for possible fracture. Bone anchors are seen in the left humerus. IMPRESSION: Technically limited study due to positioning. Questionable small right apical pneumothorax and minimally displaced right lateral second rib fracture. Consider follow-up apical lordotic view or chest CT to further evaluate. Message entered for ID# [id number] - Kami Hayes at: 04/10,10:50P WSN: [id number] Ordering Physician: Kami Hayes Dictated By: Jonathon Lynn MD Dictated Date/Time: 04/10/20 10:50 p Reviewed By: Jonathon Lynn MD Signed By: Jonathon Lynn MD Signed Date/Time: 04/10/20 10:50 pm Transcribed By: CHAPARRITA Transcribed Date/Time: 04/10/20 10:48 pm Vital Signs Most recent to oldest 1 2 3 [Reference Range]: Height 162 cm 162 cm 162 cm (04/12/20 8:00 AM) (04/12/20 4:46 AM) (04/11/20 11: 56 PM) Weight 78.3 kg (04/11/20 5:06 PM) Oxygen Saturation [94-100 %] 96 % 99 % 99 % (04/12/20 8:00 AM) (04/12/20 4:46 AM) (04/11/20 11: 56 PM) Pulse Rate [55-90 bpm] 60 bpm 55 bpm 60 bpm (04/12/20 8:00 AM) (04/12/20 4:46 AM) (04/11/20 11: 56 PM) Body Mass Index [18.5-24.99] 29.84 *H* (04/11/20 5:06 PM) Blood Pressure [90-138/55-84 137/87 mm Hg 113/73 mm Hg 108 /68 mm Hg mm Hg] (04/12/20 8:00 AM) (04/12/20 4:46 AM) (04/11/20 11: 56 PM) Respiratory Rate [16-30 18 br/min 16 br/min 18 br/mi n br/min] (04/12/20 10:04 AM) (04/12/20 8:00 AM) (04/12/20 4: 46 AM) Temperature [96.8-100.4 DegF] 98.1 DegF 98 DegF 98 .2 DegF (04/12/20 8:00 AM) (04/12/20 4:46 AM) (04/11/20 11: 56 PM) Liters per Minute 2 L/min 2 L/min 2 L/min (04/11/20 10:33 AM) (04/11/20 8:50 AM) (04/11/20 5: 37 AM) Mode of Delivery (Oxygen) Room air Room air Room a ir (04/12/20 8:00 AM) (04/12/20 4:46 AM) (04/11/20 11: 56 PM) Blood pressure sites Arm, left Arm, right Arm, right (04/12/20 8:00 AM) (04/12/20 4:46 AM) (04/11/20 11: 56 PM) Temperature Route Oral Oral Oral (04/12/20 8:00 AM) (04/12/20 4:46 AM) (04/11/20 11: 56 PM) Dry Weight 78.3 kg (04/11/20 5:06 PM) Weight Obtained Via Bed scale (04/11/20 5:06 PM) Dry Weight Obtained Via Bed scale (04/11/20 5:06 PM)
[2022-09-28 20:00] VITALS: BP 195/104; PULSE 56; RESP 12; TEMP 37; O2SAT 99
[2022-09-28] MEDS: cefTRIAXone sodium 1 GM in 0.9 % Sodium Chloride 50 ML IV (20:18)
[2022-09-28] MEDS: 0.9 % Sodium Chloride 1,000 ML 999 ML IVCONT ×3 (20:19→22:06)
[2022-09-28 20:40] LABS: Influenza A PCR NEGATIVE (Negative); Influenza B PCR NEGATIVE (Negative); Resp Syncy Virus RNA Qual PCR NEGATIVE (Negative); SARS COV2 PCR INHOUSE NEGATIVE (Negative)
[2022-09-28] MEDS: hydrALAZINE HCl 20 MG/ML VIAL 5 MG IVPUSH (20:58)
[2022-09-28 21:10] LABS: Appearance Urine Clear; Color Urine Yellow; Glucose Urine UA Negative (Negative); Leukocyte Esterase Urine Negative (Negative); Nitrite Urine Negative (Negative); PH 5.5 (5.0-9.0); Specific Gravity - Urine >= 1.030 (1.005-1.025); UMIC TRIGGER UACC YES; Urine Blood Small (1+) (Negative); Urine Ketones >=160 mg/dL (Negative); Urine Protein 100 (2+) mg/dL (Neg-Trace)
[2022-09-28 21:22] LABS: Amphetamine Screen Urine Not Detected (Not Detect); Barbiturates, Urine Not Detected (Not Detect); Benzodiazepines Screen Urine POSITIVE (Not Detect); Cannabinoid Screen Urine POSITIVE (Not Detect); Cocaine Screen Urine Not Detected (Not Detect); Fentanyl, urine Not Detected (Not Detect); Opiate Screen Urine Not Detected (Not Detect); Phencyclidine Screen Urine Not Detected (Not Detect)
[2022-09-28 21:26] LABS: Bacteria Urine None Seen (None Seen); Hyaline Casts Urine 0-2 /LPF (0-2); RBC Urine 0-2 /HPF (0-2); Squamous Epithelial Cell Urine 0-2 /HPF (0-2); WBC Urine 0-5 /HPF (0-5)
[2022-09-28 21:26] LABS: Reflex Lactate? Lactic Acid Added
[2022-09-28 22:00] VITALS: BP 163/86; PULSE 91; RESP 29; O2SAT 94
[2022-09-28] MEDS: Midazolam HCl/PF 2 MG/2 ML VIAL IVPUSH (22:06)
[2022-09-28] MEDS: Prochlorperazine Edisylate 10 MG/2 ML VIAL IVPUSH (22:07)
--- NOTE | 2022-09-28 22:10 | HE.PHANOTE ---
RE PHENOBARB IM/PO WANTED INSTEAD OF PO SONYA
[2022-09-28 22:18] LABS: ~Lactic Acid-LAB USE ONLY 2.9 mmol/L (0.5-2.0)
[2022-09-28] MEDS: PHENobarbitaL sodium 130 MG/ML IM ONCE 284 MG IM (22:50)
--- NOTE | 2022-09-28 23:45 | PM.IMHP ---
History of Present Illness Date of Service: 09/28/22 Chief Complaint: Abdominal Pain This is a 62-year-old male with pertinent history of alcohol use disorder, marijuana use disorder, mood disorder who presents to the emergency department for evaluation of nausea/vomiting and abdominal pain. After initial hesitation, patient admitted he drinks a minimum of 6 beers every day. His last drink was yesterday. Patient states he has been ill for the last 3 days. He has been having fever and chills and also developed a productive cough with yellowish sputum production. Also complaining of epigastric pain and associated nausea, nonbloody emesis and watery diarrhea. States abdominal pain is associated with belching. Admits to smoking marijuana every day. Patient admits to poor p.o. intake in the last 2 days since he has been feeling unwell. States he now wants to quit alcohol. He denies hematemesis, melena. Patient denies chest discomfort, shortness of breath, palpitations, changes in urinary habits In the emergency department, patient was found to be agitated and anxious. He was difficult to redirect and required multiple doses of Versed and phenobarb before he calmed down Review of Systems Constitutional: Constitutional: Reports chills and Reports fever(s) Cardiovascular: Cardiovascular: Reports no additional cardiovascular complaints Respiratory: Respiratory: Reports no additional respiratory complaints Gastrointestinal: Gastrointestinal: Reports abdominal pain, Reports belching, Reports change in stool character and Reports vomiting Genitourinary: Genitourinary: Reports no additional male genitourinary complaints [facility] Medical History (Updated 09/28/22 @ 23:57 by Iona Morgan MD) Alcohol use disorder Marijuana abuse Mood disorder Social History Advance Directives: No Meds Allergies Allergy/AdvReac Type Severity Reaction Status Date / Time No Known Allergies Allergy Verified 09/28/22 18:50 Active Medications: Current Medications Acetaminophen (Acetaminophen 325 Mg Tablet) 650 mg PO Q6H PRN PRN Reason: Pain, Mild (Pain Scale 1-3) Enoxaparin Sodium (Enoxaparin Sodium 40 Mg/0.4 Ml Syringe) 40 mg SUBCUT Q24H MARIA EUGENIA Ampicillin Sodium/Sulbactam (Sodium 3 gm/ Sodium Chloride) 100 mls @ 200 mls/hr IV Q6H MARIA EUGENIA Melatonin (Melatonin 3 Mg Tablet) 6 mg PO BEDTIME PRN PRN Reason: Insomnia Ondansetron HCl (Ondansetron Hcl 4 Mg/2 Ml Vial) 4 mg IVPUSH Q8H PRN PRN Reason: Nausea and Vomiting Pharmacy Consult (Consult Rx Etoh Phenob Po Only) 1 each MISCELLANE ONCE PRN; Protocol PRN Reason: Consult order Pharmacy Consult (Consult Rx Perform Med Rec) 1 each MISCELLANE ONCE PRN PRN Reason: Consult order Phenobarbital (Phenobarbital 15 Mg Tablet) 45 mg PO BID MARIA EUGENIA; Protocol Stop: 09/30/22 21:01 Phenobarbital (Phenobarbital 30 Mg Tablet) 30 mg PO BID MARIA EUGENIA; Protocol Stop: 10/02/22 21:01 Phenobarbital (Phenobarbital 30 Mg Tablet) 30 mg PO DAILY MARIA EUGENIA Stop: 10/04/22 09:01 Phenobarbital Sodium (Phenobarbital Sodium 130 Mg/Ml Vial Im Q3hx2) 213 mg IM Q3H MARIA EUGENIA; Protocol Stop: 09/29/22 04:01 Sodium Chloride (0.9 % Sodium Chloride Flush 3 Ml Syringe) 3 ml IVFLUSH QSHIFT MARIA EUGENIA Physical Exam Vital Signs and Narrative: Vital Signs: Last Vital Signs Temp 98.6 F 09/28/22 20:00 Pulse 91 09/28/22 22:00 Resp 29 H 09/28/22 22:00 BP 163/86 H 09/28/22 22:00 Pulse Ox 94 09/28/22 22:00 O2 Del Method 09/28/22 22:00 BMI result Body Mass Index 25.7 Middle-aged male lying in bed in mild distress Neck supple, no JVD Regular rate and rhythm, S1-S2 heard Right-sided crackles without wheezing Abdomen soft nontender, no guarding, no rigidity Patient is awake, alert and oriented to self, place, time and person ; no focal motor deficit Psych: Anxious No pedal edema Results Labs CBC and Chem 7: 09/28/22 19:21 09/28/22 19:21 Labs: Laboratory Results - last 24 hr 09/28/22 09/28/22 09/28/22 19:21 19:21 19:21 MCV 87.9 MCH 30.7 MCHC 34.9 RDW 14.2 Plt Count 273 MPV 9.4 Immature Gran % (Auto) 0.5 H Neut % (Auto) 90.0 H Lymph % (Auto) 5.9 L Coleman % (Auto) 3.3 Eos % (Auto) 0.0 Baso % (Auto) 0.3 Lymph # (Auto) 1.0 L Coleman # (Auto) 0.5 Eos # (Auto) 0.0 Baso # (Auto) 0.1 Abs Immat Gran (auto) 0.08 H Absolute Neuts (auto) 14.8 H Absolute Nucleated RBC 0.000 Nucleated RBC % (auto) 0.0 PT 12.7 INR 1.1 APTT 28.7 VBG pH VBG pCO2 VBG pO2 VBG HCO3 VBG O2 Saturation VBG Base Excess Anion Gap 30 H Estim Creat Clear Calc 61.0 Estimated GFR > 60 Random Glucose 115 Lactic Acid Lactic Acid F/U @ 2Hr Calcium 9.8 Magnesium 1.6 Total Bilirubin 1.0 Direct Bilirubin 0.4 AST 19 ALT 10 Alkaline Phosphatase 63 Ammonia Troponin I High Sens B-Natriuretic Peptide Total Protein 7.7 Albumin 4.6 Lipase 7 L Urine Color Urine Appearance Urine pH Ur Specific Idalou Urine Protein Urine Glucose (UA) Urine Ketones Urine Blood Urine Nitrite Ur Leukocyte Esterase Urine RBC Urine WBC Ur Squamous Epith Cells Urine Bacteria Hyaline Casts Urine Opiates Screen Urine Fentanyl Screen Ur Barbiturates Screen Ur Phencyclidine Scrn Ur Amphetamines Screen U Benzodiazepines Scrn Urine Cocaine Screen U Marijuana (THC) Screen Ethyl Alcohol < 10 Acetone, Qual Influenza Type A (PCR) Influenza Type B (PCR) RSV RNA Qual (PCR) SARS-CoV-2 RNA (RT-PCR) Blood Type Antibody Screen 09/28/22 09/28/22 09/28/22 19:21 19:21 19:21 MCV MCH MCHC RDW Plt Count MPV Immature Gran % (Auto) Neut % (Auto) Lymph % (Auto) Coleman % (Auto) Eos % (Auto) Baso % (Auto) Lymph # (Auto) Coleman # (Auto) Eos # (Auto) Baso # (Auto) Abs Immat Gran (auto) Absolute Neuts (auto) Absolute Nucleated RBC Nucleated RBC % (auto) PT INR APTT VBG pH VBG pCO2 VBG pO2 VBG HCO3 VBG O2 Saturation VBG Base Excess Anion Gap Estim Creat Clear Calc Estimated GFR Random Glucose Lactic Acid 8.8 H* Lactic Acid F/U @ 2Hr Calcium Magnesium Total Bilirubin Direct Bilirubin AST ALT Alkaline Phosphatase Ammonia 28 Troponin I High Sens < 3.5 B-Natriuretic Peptide 14 Total Protein Albumin Lipase Urine Color Urine Appearance Urine pH Ur Specific [place]ou Urine Protein Urine Glucose (UA) Urine Ketones Urine Blood Urine Nitrite Ur Leukocyte Esterase Urine RBC Urine WBC Ur Squamous Epith Cells Urine Bacteria Hyaline Casts Urine Opiates Screen Urine Fentanyl Screen Ur Barbiturates Screen Ur Phencyclidine Scrn Ur Amphetamines Screen U Benzodiazepines Scrn Urine Cocaine Screen U Marijuana (THC) Screen Ethyl Alcohol Acetone, Qual Influenza Type A (PCR) Influenza Type B (PCR) RSV RNA Qual (PCR) SARS-CoV-2 RNA (RT-PCR) Blood Type Antibody Screen 09/28/22 09/28/22 09/28/22 19:21 19:27 19:47 MCV MCH MCHC RDW Plt Count MPV Immature Gran % (Auto) Neut % (Auto) Lymph % (Auto) Coleman % (Auto) Eos % (Auto) Baso % (Auto) Lymph # (Auto) Coleman # (Auto) Eos # (Auto) Baso # (Auto) Abs Immat Gran (auto) Absolute Neuts (auto) Absolute Nucleated RBC Nucleated RBC % (auto) PT INR APTT VBG pH 7.42 VBG pCO2 27 VBG pO2 24 VBG HCO3 18 L VBG O2 Saturation < 30.0 VBG Base Excess -4.4 Anion Gap Estim Creat Clear Calc Estimated GFR Random Glucose Lactic Acid Lactic Acid F/U @ 2Hr Calcium Magnesium Total Bilirubin Direct Bilirubin AST ALT Alkaline Phosphatase Ammonia Troponin I High Sens B-Natriuretic Peptide Total Protein Albumin Lipase Urine Color Urine Appearance Urine pH Ur Specific [place] Urine Protein Urine Glucose (UA) Urine Ketones Urine Blood Urine Nitrite Ur Leukocyte Esterase Urine RBC Urine WBC Ur Squamous Epith Cells Urine Bacteria Hyaline Casts Urine Opiates Screen Urine Fentanyl Screen Ur Barbiturates Screen Ur Phencyclidine Scrn Ur Amphetamines Screen U Benzodiazepines Scrn Urine Cocaine Screen U Marijuana (THC) Screen Ethyl Alcohol Acetone, Qual Negative Influenza Type A (PCR) NEGATIVE Influenza Type B (PCR) NEGATIVE RSV RNA Qual (PCR) NEGATIVE SARS-CoV-2 RNA (RT-PCR) NEGATIVE Blood Type Antibody Screen 09/28/22 09/28/22 09/28/22 19:58 21:00 21:00 MCV MCH MCHC RDW Plt Count MPV Immature Gran % (Auto) Neut % (Auto) Lymph % (Auto) Coleman % (Auto) Eos % (Auto) Baso % (Auto) Lymph # (Auto) Coleman # (Auto) Eos # (Auto) Baso # (Auto) Abs Immat Gran (auto) Absolute Neuts (auto) Absolute Nucleated RBC Nucleated RBC % (auto) PT INR APTT VBG pH VBG pCO2 VBG pO2 VBG HCO3 VBG O2 Saturation VBG Base Excess Anion Gap Estim Creat Clear Calc Estimated GFR Random Glucose Lactic Acid Lactic Acid F/U @ 2Hr Calcium Magnesium Total Bilirubin Direct Bilirubin AST ALT Alkaline Phosphatase Ammonia Troponin I High Sens B-Natriuretic Peptide Total Protein Albumin Lipase Urine Color Yellow Urine Appearance Clear Urine pH 5.5 Ur Specific Idalou >= 1.030 H Urine Protein 100 (2+) H Urine Glucose (UA) Negative Urine Ketones >=160 Urine Blood Small (1+) H Urine Nitrite Negative Ur Leukocyte Esterase Negative Urine RBC 0-2 Urine WBC 0-5 Ur Squamous Epith Cells 0-2 Urine Bacteria None Seen Hyaline Casts 0-2 Urine Opiates Screen Not Detected Urine Fentanyl Screen Not Detected Ur Barbiturates Screen Not Detected Ur Phencyclidine Scrn Not Detected Ur Amphetamines Screen Not Detected U Benzodiazepines Scrn POSITIVE H Urine Cocaine Screen Not Detected U Marijuana (THC) Screen POSITIVE H Ethyl Alcohol Acetone, Qual Influenza Type A (PCR) Influenza Type B (PCR) RSV RNA Qual (PCR) SARS-CoV-2 RNA (RT-PCR) Blood Type O Negative Antibody Screen NEGATIVE 09/28/22 21:41 MCV MCH MCHC RDW Plt Count MPV Immature Gran % (Auto) Neut % (Auto) Lymph % (Auto) Coleman % (Auto) Eos % (Auto) Baso % (Auto) Lymph # (Auto) Coleman # (Auto) Eos # (Auto) Baso # (Auto) Abs Immat Gran (auto) Absolute Neuts (auto) Absolute Nucleated RBC Nucleated RBC % (auto) PT INR APTT VBG pH VBG pCO2 VBG pO2 VBG HCO3 VBG O2 Saturation VBG Base Excess Anion Gap Estim Creat Clear Calc Estimated GFR Random Glucose Lactic Acid Lactic Acid F/U @ 2Hr 2.9 H* Calcium Magnesium Total Bilirubin Direct Bilirubin AST ALT Alkaline Phosphatase Ammonia Troponin I High Sens B-Natriuretic Peptide Total Protein Albumin Lipase Urine Color Urine Appearance Urine pH Ur Specific [place] Urine Protein Urine Glucose (UA) Urine Ketones Urine Blood Urine Nitrite Ur Leukocyte Esterase Urine RBC Urine WBC Ur Squamous Epith Cells Urine Bacteria Hyaline Casts Urine Opiates Screen Urine Fentanyl Screen Ur Barbiturates Screen Ur Phencyclidine Scrn Ur Amphetamines Screen U Benzodiazepines Scrn Urine Cocaine Screen U Marijuana (THC) Screen Ethyl Alcohol Acetone, Qual Influenza Type A (PCR) Influenza Type B (PCR) RSV RNA Qual (PCR) SARS-CoV-2 RNA (RT-PCR) Blood Type Antibody Screen Imaging Radiologist's Impressions: Impressions Cervical Spine CT 09/28/22 19:32 IMPRESSION: Negative acute noncontrast CT of the brain. Some straightening of the normal lordosis in the cervical spine which may be due to position or spasm. No fracture or dislocation. Degenerative changes are noted Head CT 09/28/22 19:32 IMPRESSION: Negative acute noncontrast CT of the brain. Some straightening of the normal lordosis in the cervical spine which may be due to position or spasm. No fracture or dislocation. Degenerative changes are noted Abdomen/Pelvis CT 09/28/22 19:37 IMPRESSION: No evidence for visceral injury in the abdomen pelvis. No pneumothorax or effusion in the chest. Some reticular nodular change at the right base may represent an area of infiltrate. This could be aspiration. Otherwise some small nodules are noted in the lungs. Recommend low-dose noncontrast follow-up in 6 months for continued evaluation. There is mild compression injury at T10 but the age is indeterminate. This could be chronic. Correlation recommended clinically. Probable old rib fractures are noted but again correlation would be recommended clinically. Thick-walled bladder may be hypertrophy versus cystitis. Prominent prostate is noted Prominent fluid-filled stomach. Chest CT 09/28/22 19:37 IMPRESSION: No evidence for visceral injury in the abdomen pelvis. No pneumothorax or effusion in the chest. Some reticular nodular change at the right base may represent an area of infiltrate. This could be aspiration. Otherwise some small nodules are noted in the lungs. Recommend low-dose noncontrast follow-up in 6 months for continued evaluation. There is mild compression injury at T10 but the age is indeterminate. This could be chronic. Correlation recommended clinically. Probable old rib fractures are noted but again correlation would be recommended clinically. Thick-walled bladder may be hypertrophy versus cystitis. Prominent prostate is noted Prominent fluid-filled stomach. Assessment and Plan (1) Alcohol withdrawal: Status: Acute (2) Pneumonia: Status: Acute (3) Gastritis: Status: Acute (4) Mood disorder: Status: Acute (5) Marijuana abuse: Status: Acute (6) Alcohol use disorder: Status: Acute Plan This is a 62-year-old male with pertinent history of alcohol use disorder, marijuana use disorder, mood disorder who presents to the emergency department for evaluation of nausea/vomiting and abdominal pain. #. Alcohol withdrawal syndrome -will admit patient with phenobarb protocol. Care team and Addiction Team consulted. Patient is motivated to quit #. Right-sided pneumonia -likely aspiration in patient with alcohol use disorder. Initiating IV Unasyn #. Alcoholic gastritis -initiating IV Protonix and symptomatic management with IV Zofran. Stool studies pending, doubt bacterial infection. Clear liquid diet, advanced as tolerated #. Marijuana use disorder -symptoms may be contributed by cannabis hyperemesis syndrome. Will order capsaicin cream #. Type a lactic acidosis -trending down with fluid resuscitation #. Mood disorder -continue home p.o. medication #. Lung nodule on imaging -recommend follow-up imaging in 6 months DVT prophylaxis: Lovenox 40 mg daily Diet: Clear liquid diet. Advance as tolerated Full code Patient will require two night minimum hospital stay for management of alcohol withdrawal syndrome. Quality Stroke Does the patient have a stroke diagnosis?: No VTE Prior VTE?: No VTE Risk Level:: Medical - low VTE Device Contraindication: Treatment Not Indicated VTE Drug Contraindication: N/A - Med Ordered
[2022-09-28 23:47] LABS: Reflex Lactate? 2 Y
[2022-09-29] MEDS: 0.9 % Sodium Chloride Flush 3 ML SYRINGE IVFLUSH ×3 (00:15→16:24)
[2022-09-29] MEDS: Ampicillin Sodium/Sulbactam Na 3 GM in 0.9 % Sodium Chloride 100 ML IV ×4 (00:15→18:28)
[2022-09-29] MEDS: Enoxaparin Sodium 40 MG/0.4 ML SYRINGE SUBCUT ×2 (00:15→22:19)
[2022-09-29] MEDS: Pantoprazole Sodium 40 MG/10 ML VIAL IVPUSH ×2 (00:15→09:07)
[2022-09-29 01:03] LABS: ~Lactic Acid-LAB USE ONLY 2.1 mmol/L (0.5-2.0)
[2022-09-29] MEDS: PHENobarbitaL sodium 130 MG/ML VIAL IM Q3Hx2 213 MG IM ×2 (01:36→04:28)
[2022-09-29] MEDS: ondansetron HCL 4 MG/2 ML VIAL IVPUSH (01:38)
[2022-09-29] MEDS: 0.9 % Sodium Chloride 1,000 ML 999 ML IV (01:46)
[2022-09-29 04:14] VITALS: BP 166/87; PULSE 67; RESP 15; TEMP 36.9; O2SAT 97
[2022-09-29 06:00] VITALS: BP 175/98; PULSE 70; RESP 19; O2SAT 95
[2022-09-29 06:16] LABS: Hematocrit 49.7 % (42.0-52.0); Hemoglobin 17.1 g/dl (14.0-18.0); Mean Corpuscular HGB Conc 34.4 g/dl (31.0-36.0); Mean Corpuscular Hemoglobin 30.1 pg (27.0-33.0); Mean Corpuscular Volume 87.3 fL (80.0-98.0); Mean Platelet Volume 9.8 fL (9.4-12.4); Platelet Count 261 X10*3/uL (160-400); Red Blood Count 5.69 X10*6/uL (4.60-5.80); Red Cell Distribution Width 14.3 % (11.0-16.0)
[2022-09-29 06:28] LABS: Lactic Acid 1.3 mmol/L (0.5-2.0)
[2022-09-29 06:33] LABS: Anion Gap 21 (12-20); Blood Urea Nitrogen 10 mg/dL (9-16); Calcium 8.8 mg/dL (8.4-10.2); Carbon Dioxide 16 mmol/L (22-29); Chloride 102 mmol/L (96-108); Creatinine Clr Calc Pharmacy 72.8; Estimated Glomerular Filt Rate > 60; Glucose Random 105 mg/dL (60-115); Sodium 135 mmol/L (135-145)
[2022-09-29 06:37] LABS: WBC ABN SCTR FOR CBC 1; White Blood Count 17.8 X10*3/uL (4.8-10.8)
[2022-09-29 06:39] LABS: Band Neutrophils Percent 0 % (3-5); Lymphocytes Absolute Manual 1.2 X10*3/uL (1.2-4.9); Lymphocytes Percent Manual 7 % (20-40); Monocytes Absolute Manual 0.7 X10*3/uL (0.1-1.2); Monocytes Percent Manual 4 % (2-11); Neutrophils Absolute Manual 15.8 X10*3/uL (2.0-8.3); Neutrophils Percent Manual 89 % (45-73)
[2022-09-29 06:40] LABS: Platelet Estimate NORMAL (NORMAL); Platelet Morphology Comment NORMAL; RBC Morphology NORMAL
[2022-09-29 07:19] VITALS: BP 120/72; PULSE 62; RESP 18; TEMP 36.8; O2SAT 95
--- NOTE | 2022-09-29 08:03 | PHA.MEDREC ---
Pharmacy Consult ? Medication Reconciliation Pharmacy has completed the medication reconciliation. Received medicatioin list from [place]. Jacinto BrownD
--- NOTE | 2022-09-29 08:13 | PC.NURSE ---
rn to rn report given to essie. pt aware of plan of care for tranfer to room 346.
--- NOTE | 2022-09-29 08:23 | PC.NURSE ---
pt is a/o x 3 no sob/gosia noted skin pink warm dry speaks in full sentences. pt aware of plan of care for transfer to room 346.
--- NOTE | 2022-09-29 08:28 | P.PNIM_ITS ---
Subjective Subjective Date of Service: 09/29/22 Interval History: Patient seen and examined at bedside. He reports no nausea, no vomiting, denies any abdominal pain. Moving his bowels appropriately. Reports that his withdrawals are controlled. He is not anxious, not nurse. He has tolerated his breakfast. He denies any cough, no trouble breathing. Review of Systems Review of Systems: Yes all other systems are reviewed and are negative Physical Exam Vital Signs: Vital Signs: Last Vital Signs Temp 98.2 F 09/29/22 07:19 Pulse 62 09/29/22 07:19 Resp 18 09/29/22 07:19 BP 120/72 09/29/22 07:19 Pulse Ox 95 09/29/22 07:19 O2 Del Method 09/29/22 07:19 BMI result Body Mass Index 25.7 Const: General: cooperative, healthy appearing and comfortable Orientation/consciousness: patient oriented x3 Resp: Effort & Inspection: normal respiratory effort Auscultation: clear to auscultation bilaterally GI: Other: Nontender, no rebound or guarding Palpation (GI): Soft to palpation Neuro: General: patient oriented x3 and moves all extremities Extrem: General: Yes normal to inspection and Yes no pedal edema Objective Data Active Medications Acetaminophen (Acetaminophen 325 Mg Tablet) 650 mg PO Q6H PRN PRN Reason: Pain, Mild (Pain Scale 1-3) Capsaicin (Capsaicin 0.025% Cream 60 Gm Tube) 1 appl TOPICAL BID [facility]; Protocol Enoxaparin Sodium (Enoxaparin Sodium 40 Mg/0.4 Ml Syringe) 40 mg SUBCUT BEDTIME [facility] Last Admin: 09/29/22 00:15 Dose: 40 mg Documented By: DARIN Ampicillin Sodium/Sulbactam (Sodium 3 gm/ Sodium Chloride) 100 mls @ 200 mls/hr IV Q6H MARIA EUGENIA Last Admin: 09/29/22 06:43 Dose: 200 mls/hr Documented By: DARIN Melatonin (Melatonin 3 Mg Tablet) 6 mg PO BEDTIME PRN PRN Reason: Insomnia Ondansetron HCl (Ondansetron Hcl 4 Mg/2 Ml Vial) 4 mg IVPUSH Q8H PRN PRN Reason: Nausea and Vomiting Last Admin: 09/29/22 01:38 Dose: 4 mg Documented By: DARIN Pantoprazole Sodium (Pantoprazole Sodium 40 Mg/10 Ml Vial) 40 mg IVPUSH DAILY [facility] Last Admin: 09/29/22 00:15 Dose: 40 mg Documented By: DARIN Pharmacy Consult (Consult Rx Etoh Phenob Po Only) 1 each MISCELLANE ONCE PRN; Protocol PRN Reason: Consult order Pharmacy Consult (Consult Rx Perform Med Rec) 1 each MISCELLANE ONCE PRN PRN Reason: Consult order Phenobarbital (Phenobarbital 15 Mg Tablet) 45 mg PO BID MARIA EUGENIA; Protocol Stop: 09/30/22 21:01 Phenobarbital (Phenobarbital 30 Mg Tablet) 30 mg PO BID MARIA EUGENIA; Protocol Stop: 10/02/22 21:01 Phenobarbital (Phenobarbital 30 Mg Tablet) 30 mg PO DAILY [facility] Stop: 10/04/22 09:01 Sodium Chloride (0.9 % Sodium Chloride Flush 3 Ml Syringe) 3 ml IVFLUSH QSHIFT [facility] Last Admin: 09/29/22 00:15 Dose: 3 ml Documented By: DARIN Labs CBC & Chem 7: 09/29/22 05:52 09/29/22 05:52 Labs: Laboratory Results - last 24 hr 09/28/22 09/28/22 09/28/22 19:21 19:21 19:21 MCV 87.9 MCH 30.7 MCHC 34.9 RDW 14.2 Plt Count 273 MPV 9.4 Immature Gran % (Auto) 0.5 H Neut % (Auto) 90.0 H Lymph % (Auto) 5.9 L [place] % (Auto) 3.3 Eos % (Auto) 0.0 Baso % (Auto) 0.3 Lymph # (Auto) 1.0 L [place] # (Auto) 0.5 Eos # (Auto) 0.0 Baso # (Auto) 0.1 Abs Immat Gran (auto) 0.08 H Absolute Neuts (auto) 14.8 H Absolute Nucleated RBC 0.000 Nucleated RBC % (auto) 0.0 Neutrophils % (Manual) Band Neutrophils % Lymphocytes % (Manual) Monocytes % (Manual) Abs Neuts (Manual) Lymphocytes # (Manual) Monocytes # (Manual) Platelet Estimate Plt Morphology Comment RBC Morphology PT 12.7 INR 1.1 APTT 28.7 VBG pH VBG pCO2 VBG pO2 VBG HCO3 VBG O2 Saturation VBG Base Excess Anion Gap 30 H Estim Creat Clear Calc 61.0 Estimated GFR > 60 Random Glucose 115 Lactic Acid Lactic Acid F/U @ 2Hr Lactic Acid F/U @ 4Hr Calcium 9.8 Magnesium 1.6 Total Bilirubin 1.0 Direct Bilirubin 0.4 AST 19 ALT 10 Alkaline Phosphatase 63 Ammonia Troponin I High Sens B-Natriuretic Peptide Total Protein 7.7 Albumin 4.6 Lipase 7 L Urine Color Urine Appearance Urine pH Ur Specific [place] Urine Protein Urine Glucose (UA) Urine Ketones Urine Blood Urine Nitrite Ur Leukocyte Esterase Urine RBC Urine WBC Ur Squamous Epith Cells Urine Bacteria Hyaline Casts Urine Opiates Screen Urine Fentanyl Screen Ur Barbiturates Screen Ur Phencyclidine Scrn Ur Amphetamines Screen U Benzodiazepines Scrn Urine Cocaine Screen U Marijuana (THC) Screen Ethyl Alcohol < 10 Acetone, Qual Influenza Type A (PCR) Influenza Type B (PCR) RSV RNA Qual (PCR) SARS-CoV-2 RNA (RT-PCR) Blood Type Antibody Screen 09/28/22 09/28/22 09/28/22 19:21 19:21 19:21 MCV MCH MCHC RDW Plt Count MPV Immature Gran % (Auto) Neut % (Auto) Lymph % (Auto) [place] % (Auto) Eos % (Auto) Baso % (Auto) Lymph # (Auto) [place] # (Auto) Eos # (Auto) Baso # (Auto) Abs Immat Gran (auto) Absolute Neuts (auto) Absolute Nucleated RBC Nucleated RBC % (auto) Neutrophils % (Manual) Band Neutrophils % Lymphocytes % (Manual) Monocytes % (Manual) Abs Neuts (Manual) Lymphocytes # (Manual) Monocytes # (Manual) Platelet Estimate Plt Morphology Comment RBC Morphology PT INR APTT VBG pH VBG pCO2 VBG pO2 VBG HCO3 VBG O2 Saturation VBG Base Excess Anion Gap Estim Creat Clear Calc Estimated GFR Random Glucose Lactic Acid 8.8 H* Lactic Acid F/U @ 2Hr Lactic Acid F/U @ 4Hr Calcium Magnesium Total Bilirubin Direct Bilirubin AST ALT Alkaline Phosphatase Ammonia 28 Troponin I High Sens < 3.5 B-Natriuretic Peptide 14 Total Protein Albumin Lipase Urine Color Urine Appearance Urine pH Ur Specific [place] Urine Protein Urine Glucose (UA) Urine Ketones Urine Blood Urine Nitrite Ur Leukocyte Esterase Urine RBC Urine WBC Ur Squamous Epith Cells Urine Bacteria Hyaline Casts Urine Opiates Screen Urine Fentanyl Screen Ur Barbiturates Screen Ur Phencyclidine Scrn Ur Amphetamines Screen U Benzodiazepines Scrn Urine Cocaine Screen U Marijuana (THC) Screen Ethyl Alcohol Acetone, Qual Influenza Type A (PCR) Influenza Type B (PCR) RSV RNA Qual (PCR) SARS-CoV-2 RNA (RT-PCR) Blood Type Antibody Screen 09/28/22 09/28/22 09/28/22 19:21 19:27 19:47 MCV MCH MCHC RDW Plt Count MPV Immature Gran % (Auto) Neut % (Auto) Lymph % (Auto) [place] % (Auto) Eos % (Auto) Baso % (Auto) Lymph # (Auto) [place] # (Auto) Eos # (Auto) Baso # (Auto) Abs Immat Gran (auto) Absolute Neuts (auto) Absolute Nucleated RBC Nucleated RBC % (auto) Neutrophils % (Manual) Band Neutrophils % Lymphocytes % (Manual) Monocytes % (Manual) Abs Neuts (Manual) Lymphocytes # (Manual) Monocytes # (Manual) Platelet Estimate Plt Morphology Comment RBC Morphology PT INR APTT VBG pH 7.42 VBG pCO2 27 VBG pO2 24 VBG HCO3 18 L VBG O2 Saturation < 30.0 VBG Base Excess -4.4 Anion Gap Estim Creat Clear Calc Estimated GFR Random Glucose Lactic Acid Lactic Acid F/U @ 2Hr Lactic Acid F/U @ 4Hr Calcium Magnesium Total Bilirubin Direct Bilirubin AST ALT Alkaline Phosphatase Ammonia Troponin I High Sens B-Natriuretic Peptide Total Protein Albumin Lipase Urine Color Urine Appearance Urine pH Ur Specific [place] Urine Protein Urine Glucose (UA) Urine Ketones Urine Blood Urine Nitrite Ur Leukocyte Esterase Urine RBC Urine WBC Ur Squamous Epith Cells Urine Bacteria Hyaline Casts Urine Opiates Screen Urine Fentanyl Screen Ur Barbiturates Screen Ur Phencyclidine Scrn Ur Amphetamines Screen U Benzodiazepines Scrn Urine Cocaine Screen U Marijuana (THC) Screen Ethyl Alcohol Acetone, Qual Negative Influenza Type A (PCR) NEGATIVE Influenza Type B (PCR) NEGATIVE RSV RNA Qual (PCR) NEGATIVE SARS-CoV-2 RNA (RT-PCR) NEGATIVE Blood Type Antibody Screen 09/28/22 09/28/22 09/28/22 19:58 21:00 21:00 MCV MCH MCHC RDW Plt Count MPV Immature Gran % (Auto) Neut % (Auto) Lymph % (Auto) [place] % (Auto) Eos % (Auto) Baso % (Auto) Lymph # (Auto) [place] # (Auto) Eos # (Auto) Baso # (Auto) Abs Immat Gran (auto) Absolute Neuts (auto) Absolute Nucleated RBC Nucleated RBC % (auto) Neutrophils % (Manual) Band Neutrophils % Lymphocytes % (Manual) Monocytes % (Manual) Abs Neuts (Manual) Lymphocytes # (Manual) Monocytes # (Manual) Platelet Estimate Plt Morphology Comment RBC Morphology PT INR APTT VBG pH VBG pCO2 VBG pO2 VBG HCO3 VBG O2 Saturation VBG Base Excess Anion Gap Estim Creat Clear Calc Estimated GFR Random Glucose Lactic Acid Lactic Acid F/U @ 2Hr Lactic Acid F/U @ 4Hr Calcium Magnesium Total Bilirubin Direct Bilirubin AST ALT Alkaline Phosphatase Ammonia Troponin I High Sens B-Natriuretic Peptide Total Protein Albumin Lipase Urine Color Yellow Urine Appearance Clear Urine pH 5.5 Ur Specific [place] >= 1.030 H Urine Protein 100 (2+) H Urine Glucose (UA) Negative Urine Ketones >=160 Urine Blood Small (1+) H Urine Nitrite Negative Ur Leukocyte Esterase Negative Urine RBC 0-2 Urine WBC 0-5 Ur Squamous Epith Cells 0-2 Urine Bacteria None Seen Hyaline Casts 0-2 Urine Opiates Screen Not Detected Urine Fentanyl Screen Not Detected Ur Barbiturates Screen Not Detected Ur Phencyclidine Scrn Not Detected Ur Amphetamines Screen Not Detected U Benzodiazepines Scrn POSITIVE H Urine Cocaine Screen Not Detected U Marijuana (THC) Screen POSITIVE H Ethyl Alcohol Acetone, Qual Influenza Type A (PCR) Influenza Type B (PCR) RSV RNA Qual (PCR) SARS-CoV-2 RNA (RT-PCR) Blood Type O Negative Antibody Screen NEGATIVE 09/28/22 09/29/22 09/29/22 21:41 00:47 05:52 MCV 87.3 MCH 30.1 MCHC 34.4 RDW 14.3 Plt Count 261 MPV 9.8 Immature Gran % (Auto) Cancelled Neut % (Auto) Cancelled Lymph % (Auto) Cancelled [place] % (Auto) Cancelled Eos % (Auto) Cancelled Baso % (Auto) Cancelled Lymph # (Auto) Cancelled [place] # (Auto) Cancelled Eos # (Auto) Cancelled Baso # (Auto) Cancelled Abs Immat Gran (auto) Cancelled Absolute Neuts (auto) Cancelled Absolute Nucleated RBC 0.000 Nucleated RBC % (auto) 0.0 Neutrophils % (Manual) 89 H Band Neutrophils % 0 L Lymphocytes % (Manual) 7 L Monocytes % (Manual) 4 Abs Neuts (Manual) 15.8 H Lymphocytes # (Manual) 1.2 Monocytes # (Manual) 0.7 Platelet Estimate NORMAL Plt Morphology Comment NORMAL RBC Morphology NORMAL PT INR APTT VBG pH VBG pCO2 VBG pO2 VBG HCO3 VBG O2 Saturation VBG Base Excess Anion Gap Estim Creat Clear Calc Estimated GFR Random Glucose Lactic Acid Lactic Acid F/U @ 2Hr 2.9 H* Lactic Acid F/U @ 4Hr 2.1 H* Calcium Magnesium Total Bilirubin Direct Bilirubin AST ALT Alkaline Phosphatase Ammonia Troponin I High Sens B-Natriuretic Peptide Total Protein Albumin Lipase Urine Color Urine Appearance Urine pH Ur Specific [place] Urine Protein Urine Glucose (UA) Urine Ketones Urine Blood Urine Nitrite Ur Leukocyte Esterase Urine RBC Urine WBC Ur Squamous Epith Cells Urine Bacteria Hyaline Casts Urine Opiates Screen Urine Fentanyl Screen Ur Barbiturates Screen Ur Phencyclidine Scrn Ur Amphetamines Screen U Benzodiazepines Scrn Urine Cocaine Screen U Marijuana (THC) Screen Ethyl Alcohol Acetone, Qual Influenza Type A (PCR) Influenza Type B (PCR) RSV RNA Qual (PCR) SARS-CoV-2 RNA (RT-PCR) Blood Type Antibody Screen 09/29/22 09/29/22 05:52 05:52 MCV MCH MCHC RDW Plt Count MPV Immature Gran % (Auto) Neut % (Auto) Lymph % (Auto) [place] % (Auto) Eos % (Auto) Baso % (Auto) Lymph # (Auto) [place] # (Auto) Eos # (Auto) Baso # (Auto) Abs Immat Gran (auto) Absolute Neuts (auto) Absolute Nucleated RBC Nucleated RBC % (auto) Neutrophils % (Manual) Band Neutrophils % Lymphocytes % (Manual) Monocytes % (Manual) Abs Neuts (Manual) Lymphocytes # (Manual) Monocytes # (Manual) Platelet Estimate Plt Morphology Comment RBC Morphology PT INR APTT VBG pH VBG pCO2 VBG pO2 VBG HCO3 VBG O2 Saturation VBG Base Excess Anion Gap 21 H Estim Creat Clear Calc 72.8 Estimated GFR > 60 Random Glucose 105 Lactic Acid 1.3 Lactic Acid F/U @ 2Hr Lactic Acid F/U @ 4Hr Calcium 8.8 D Magnesium Total Bilirubin Direct Bilirubin AST ALT Alkaline Phosphatase Ammonia Troponin I High Sens B-Natriuretic Peptide Total Protein Albumin Lipase Urine Color Urine Appearance Urine pH Ur Specific [place] Urine Protein Urine Glucose (UA) Urine Ketones Urine Blood Urine Nitrite Ur Leukocyte Esterase Urine RBC Urine WBC Ur Squamous Epith Cells Urine Bacteria Hyaline Casts Urine Opiates Screen Urine Fentanyl Screen Ur Barbiturates Screen Ur Phencyclidine Scrn Ur Amphetamines Screen U Benzodiazepines Scrn Urine Cocaine Screen U Marijuana (THC) Screen Ethyl Alcohol Acetone, Qual Influenza Type A (PCR) Influenza Type B (PCR) RSV RNA Qual (PCR) SARS-CoV-2 RNA (RT-PCR) Blood Type Antibody Screen Assessment and Plan (1) Alcohol withdrawal: Status: Acute (2) Gastritis: Status: Acute (3) Pneumonia: Status: Acute Plan This is a 62-year-old male with pertinent history of alcohol use disorder, marijuana use disorder, mood disorder who presents to the emergency department for evaluation of nausea/vomiting and abdominal pain. # alcohol abuse with alcohol withdrawal - stable - continue phenobarb protocol - thiamine and folic acid supplement # Right-sided pneumonia -likely aspiration in patient with alcohol use disorder.? continue IV Unasyn-day 2 # gastritis - likely 2/2 alcohol - will switch to PO omeprazole - Continue antiemetic - Stool studies pending, doubt bacterial infection.? - advance diet as he has resolved symptoms #Marijuana use disorder -symptoms may be contributed by cannabis hyperemesis syndrome.? - continue capsaicin cream #? lactic acidosis - resolved #? Mood disorder - continue home p.o. medication # Lung nodule on imaging - recommend follow-up imaging in 6 months op DVT prophylaxis:? Lovenox 40 mg daily Full code Given pt's alcohol withdrawal and requirement for phenobarb protocol, patient will require further hospitalization for management Quality Stroke Does the patient have a stroke diagnosis?: No VTE Prior VTE?: No VTE Risk Level:: Medical - low VTE Device Contraindication: Treatment Not Indicated VTE Drug Contraindication: N/A - Med Ordered
--- NOTE | 2022-09-29 09:03 | MHC.CM.PN ---
IMM/ NOTICE , CM MET WPT WHO IS A&OX4, LIVES ALONE, INDEP W/ALL CARE, DENIES USE OF DME/HOME SERVICES AND WOULD LIKE [facility] SERVICES, PT HAS NO PREFERENCE AND REFERRAL PLACED TO [facility], PT VERIFIES PCP IS GUERO [facility] AT [facility] AND REPORTS HE IS 90% CONNECTED, MODERNA X4 AND HAS BEEN EDUCATED ON AND DECLINES TO COMPLETE A HCP AT THIS TIME. ANTIC D/C HOME AND POSSIBLE NEW [facility], PT WILL ARRANGE TRANSPORT.
[2022-09-29] MEDS: PHENobarbitaL 15 MG TABLET 45 MG PO ×2 (09:07→22:18)
[2022-09-29] MEDS: Folic Acid 1 MG TABLET PO (10:42)
[2022-09-29] MEDS: Thiamine HCL 100 MG TABLET PO (10:42)
[2022-09-29 12:00] VITALS: BP 139/89; PULSE 62; RESP 18; TEMP 35.7; O2SAT 97
[2022-09-29] MEDS: Artificial Tears 15 ML DROPS 1 DROP EYE-BOTH ×3 (12:16→22:18)
[2022-09-29 16:27] VITALS: BP 124/75; PULSE 73; RESP 17; TEMP 37; O2SAT 95
[2022-09-29 19:45] VITALS: BP 144/87; PULSE 65; RESP 17; TEMP 37.2; O2SAT 95
[2022-09-29] MEDS: Ammonium Lactate 12 % Lotion 226 GM BOTTLE 1 APPL TOPICAL (22:17)
[2022-09-30] VITALS: BP 124/87; PULSE 73; RESP 18; TEMP 36.8; O2SAT 97
[2022-09-30] MEDS: Ampicillin Sodium/Sulbactam Na 3 GM in 0.9 % Sodium Chloride 100 ML IV ×2 (00:01→06:24)
[2022-09-30] MEDS: 0.9 % Sodium Chloride Flush 3 ML SYRINGE IVFLUSH ×2 (00:06→07:51)
--- NOTE | 2022-09-30 06:59 | PM.DS ---
DS: Providers Provider Date of Service: 09/30/22 Date of admission: 09/28/22 23:42 Primary care physician: Unknown Physician Consults: 09/28/22 23:49 Addiction Medicine Routine Consulting Provider: Addiction Covering Reason for consultation: alcohol and marijuana Consult to Care Team Routine Comment: Reason for consultation: alcohol withdrawal 09/30/22 06:47 Consult to Care Team Stat Comment: Reason for consultation: plan on discharge, alcohol use disorder DS: Diagnosis Discharge Diagnosis (1) Alcohol withdrawal: Status: Acute (2) Gastritis: Status: Acute (3) Pneumonia: Status: Acute DS: Summary Hospital Course Hospital Course: This is a 62-year-old male with past medical history of alcohol use disorder, marijuana use disorder, do mood disorder who admitted to the hospital on 102 with acute complaints of nausea vomiting abdominal pain found to have likely alcoholic gastritis. Patient was treated with PPI with significant improvement in his symptoms. Patient was also managed for alcohol withdrawal in the hospital which was well controlled on phenobarb protocol. On day of discharge patient has no nausea or vomiting, reports resolution of his abdominal pain, tolerating p.o. intake very well. Patient has no withdrawal symptoms at this time. He is slightly hypertensive but asymptomatic. Received 1 dose of hydralazine 5 mg with improvement in his blood pressure. He has fluctuating BP readings while in the hospital therefore we will not adjust his antihypertensives on recommend follow-up outpatient with his primary care physician. Patient was also noted to have possible aspiration pneumonia, will be discharged on p.o. antibiotics for treatment of aspiration pneumonia, continue PPI, and Librium for possible withdrawal symptoms although he is asymptomatic at this time. Follow-up with PCP within 1 week. Time Spent with Patient Time attestation: Total time spent providing and/or coordinating discharge services: Discharge coordination time: Greater than 30 minutes Quality: Safe Use of Opioids Does Pt have an Active Cancer Diagnosis on the Problem List?: No Quality: Stroke Does the patient have a stroke diagnosis?: No Physical Exam Vital Signs: Vital Signs: Last Vital Signs Temp 98.3 F 09/30/22 00:00 Pulse 73 09/30/22 00:00 Resp 18 09/30/22 00:00 BP 124/87 09/30/22 00:00 Pulse Ox 97 09/30/22 00:00 O2 Del Method 09/30/22 00:00 BMI result Body Mass Index 25.7 DS: Data Data Completed and Pending Labs on day of discharge: Preliminary micro results at discharge 09/28/22 19:58 Blood Culture - Preliminary Blood - Venous No growth after 24 hours. 09/28/22 19:21 Blood Culture - Preliminary Blood - Venous Prelim: GPC Gram Stain only Discharge Plan Discharge Anticipated Discharge Date/Time: 09/30/22 06:46 Patient Disposition: Home, Self-Care Discharge Diagnosis: Gastritis, alcohol withdrawal Referrals: oLw Garcia MD [Physician] - 1 Week Physician,Unknown J [Primary Care Provider] - 1 Week Discharge Medications: New folic acid 1 mg Tablet 1 mg PO DAILY 30 Days Qty: 30 1RF thiamine mononitrate (vit B1) 100 mg Tablet 100 mg PO DAILY 30 Days Qty: 30 1RF amoxicillin-pot clavulanate [Augmentin] 500-125 mg tablet 1 tab PO Q12H 5 Days Qty: 10 0RF chlordiazepoxide HCl 10 mg capsule 10 mg PO TID PRN (Reason: alcohol withdrawal symptoms) 4 Days Qty: 12 0RF omeprazole 20 mg capsule,delayed release(DR/EC) 20 mg PO BID 30 Days Qty: 60 0RF Continued venlafaxine 75 mg Capsule,Extended Release 24hr 75 mg PO DAILY lisinopril 20 mg Tablet 20 mg PO DAILY allopurinol 100 mg Tablet 100 mg PO DAILY carboxymethylcellulose sodium 0.5 % Drops 1 drp OPHTHALMIC (EYE) QID pramipexole 0.25 mg Tablet 0.25 mg PO DAILY@1900 zolpidem 5 mg Tablet 5 mg PO BEDTIME PRN (Reason: Insomnia) ammonium lactate 5 % Lotion 1 appl TOPICAL BEDTIME PRN (Reason: Dry Skin) Discharge Orders: Discharge Order (Routine); Ordered 09/30/22 Ordered By: Marva Hernandez Diet: Advance to usual diet Activity on Discharge: As tolerated Stand Alone Forms: Patient Portal Discharge page Care Plan Goals: To avoid alcohol use Health Concerns: alcohol use and withdrawal Plan of Treatment: Continue antibiotic for aspiration pneumonia, fall, continue omeprazole, Assessment: Avoid alcohol continue Omeprazole See gastroenterology for outpatient evaluation with EGD and colonoscopy
[2022-09-30 07:29] LABS: MANUAL DIFF FLAG NO
[2022-09-30 07:31] LABS: Basophils Absolute Auto 0.1 X10*3/uL (0.0-0.2); Basophils Percent Auto 0.5 % (0-2); Eosinophils Absolute Auto 0.1 X10*3/uL (0.0-0.4); Eosinophils Percent Auto 0.5 % (0-4); Hematocrit 46.2 % (42.0-52.0); Hemoglobin 15.9 g/dl (14.0-18.0); Imm Gran Abs Auto 0.03 X10*3/uL (0.00-0.03); Imm Gran Pct Auto 0.3 % (0.0-0.4); Lymphocytes Absolute Auto 1.8 X10*3/uL (1.2-4.9); Lymphocytes Percent Auto 18.2 % (20-40); Mean Corpuscular HGB Conc 34.4 g/dl (31.0-36.0); Mean Corpuscular Hemoglobin 30.6 pg (27.0-33.0); Monocytes Absolute Auto 0.9 X10*3/uL (0.1-1.2); Monocytes Percent Auto 9.7 % (2-11); Neutrophils Absolute Auto 6.9 x10*3/uL (2.0-8.3); Neutrophils Percent Auto 70.8 % (45-73); Platelet Count 214 X10*3/uL (160-400); Red Blood Count 5.19 X10*6/uL (4.60-5.80); Red Cell Distribution Width 14.4 % (11.0-16.0); White Blood Count 9.7 X10*3/uL (4.8-10.8)
[2022-09-30] MEDS: allopurinoL 100 MG TABLET PO (07:51)
[2022-09-30] MEDS: PHENobarbitaL 15 MG TABLET 45 MG PO (07:51)
[2022-09-30] MEDS: Venlafaxine HCl ER 75 MG CAP.ER.24H PO (07:51)
[2022-09-30] MEDS: Thiamine HCL 100 MG TABLET PO (07:51)
[2022-09-30 07:52] VITALS: BP 176/92; PULSE 64; RESP 16; TEMP 36.5; O2SAT 98
[2022-09-30] MEDS: Artificial Tears 15 ML DROPS 1 DROP EYE-BOTH (07:52)
[2022-09-30] MEDS: Folic Acid 1 MG TABLET PO (07:52)
[2022-09-30] MEDS: lisinopriL 20 MG TABLET PO (07:52)
[2022-09-30] MEDS: Pantoprazole Sodium 40 MG/10 ML VIAL IVPUSH (07:52)
[2022-09-30 08:00] VITALS: BP 200/100; PULSE 55; RESP 18; TEMP 37.1; O2SAT 98
--- NOTE | 2022-09-30 08:30 | MHC.CM.PN ---
PT BEING DISCHARGED HOME TODAY WITH NO SERVICES PT TO ARRANGE TRANSPORT
[2022-09-30] MEDS: hydrALAZINE HCl 20 MG/ML VIAL 5 MG IVPUSH (09:54)
[2022-09-30 10:41] VITALS: BP 174/95; PULSE 59; RESP 18; TEMP 37.4; O2SAT 98
== END 2022-09-30 11:17 | disposition home or self-care (01) | DRG 391 ==
LOC: HO.ED 23:31 → HO.EDOVER 09-29 00:31 → HO.S3 09-29 07:51
PROVIDERS: Nurse Practitioner Family; Admitting Provider Student in an Organized Health Care Education/Training Program; Emergency Provider Emergency Medicine Emergency Medical Services; Visit Provider Internal Medicine
DX: K29.20 Alcoholic gastritis without bleeding (principal); J69.0 Pneumonitis due to inhalation of food and vomit; E87.20 Acidosis, unspecified; F10.139 Alcohol abuse with withdrawal, unspecified; F12.10 Cannabis abuse, uncomplicated; R91.1 Solitary pulmonary nodule; F39 Unspecified mood [affective] disorder; I10 Essential (primary) hypertension; Z20.822 Contact with and (suspected) exposure to COVID-19; Z87.891 Personal history of nicotine dependence; Z79.899 Other long term (current) drug therapy
CPT/HCPCS: 0241U; 36415; 70450; 71260; 72125; 74177; 80048; 80076; 80307; 81001; 82009; 82077; 82140; 82803; 83605; 83690; 83735; 83880; 84484; 85007; 85025; 85027; 85610; 85730; 86850; 86900; 86901; 87040; 87147; 87205; 93005; 99285; J0295; J0696; J1200; J1650; J2250; J2405; J2560; J2765; Q9967

== ENCOUNTER 2024-07-27 08:53 | Outpatient (AMB) | payer OTHER, SELFPAY ==
--- NOTE | 2024-07-27 08:55 | MHC.OFFVIS ---
Vital Signs 07/27/24 09:03 Height 5 ft 4 in Weight 165 lb BMI 28.3 Intake Visit Reasons: [employer]- Lt shoulder pain, rotator cuff tear. Intake Note: Peter is a 64 year old male who presents today as a new patient with complaints of left shoulder pain. Patient states he injured his left shoulder throwing away his trash, he believes he possibly pulled a muscle about 4 months ago, he is now unable to raise his arm above his head without experiencing pain. He has been taking Ibuprofen for pain. Allergies No Known Allergies Allergy (Verified 08/05/24 12:43) HPI HPI [employer]- Lt shoulder pain, rotator cuff tear.: Details: Peter is a 64 year old male who presents today as a new patient with complaints of left shoulder pain. Patient states he injured his left shoulder throwing away his trash, he believes he possibly pulled a muscle about 4 months ago, he is now unable to raise his arm above his head without experiencing pain. He has been taking IB for pain. [facility] Medical History (Updated 08/07/24 @ 14:20 by Randy Epstein MD) Carpal tunnel syndrome of right wrist Short Achilles tendon (acquired), right ankle Rotator cuff arthropathy Gastritis Mood disorder Marijuana abuse Alcohol use disorder Aspiration into airway Alcohol withdrawal Social History Alcohol intake: current Alcohol intake frequency: a few times a week Patient Tobacco Use Status: Former Tobacco user Substance Use Type: Marijuana Physical Exam Vital Signs: BMI result Body Mass Index 28.3 Extrem Other: 4/5 empty can Negative lift-off 45/90(with recruitment)/150/L5 Results Reviewed Results Reviewed: Report from MRI performed at outside institution shows full-thickness retracted tear of the supraspinatus tendon extending to the inferior ins for spinatus tendon. There is superior subluxation of the humeral head likely secondary to rotator cuff pathology with moderate tendinosis of the long head of the biceps. No evidence of atrophy. Assessment & Plan Assessment & Plan (1) Rotator cuff tear, left: Code(s): M75.102 - Unspecified rotator cuff tear or rupture of left shoulder, not specified as traumatic Category: Medical Plan: This is a very healthy and active 64-year-old gentleman with a full-thickness tear of his left rotator cuff. He has had prior surgery and I reviewed his MRI with him as well as treatment options. Given his high activity level and the MRI results I recommend rotator cuff repair. I discussed with him the risks, benefits and alternatives including infection, stiffness, need for further surgery. I also clearly explained that this repair may not be possible given that it is a revision and there is some retraction. He expressed understanding and we will proceed forward accordingly. Coding Level of Care Code New Pt Level 4 (79545) Diagnoses Rotator cuff tear, left M75.102
[2024-07-27 09:03] VITALS: BMI 28.3
== END 2024-07-27 16:46 | disposition home or self-care (01) ==
PROVIDERS: Visit Provider Orthopaedic Surgery
DX: S46.011A Strain of muscle(s) and tendon(s) of the rotator cuff of right shoulder, initial encounter (principal)
CPT/HCPCS: 99204

== ENCOUNTER → 2024-07-27 08:53 | Outpatient (BNVA) | payer OTHER, SELFPAY | PROVIDERS: Visit Provider Orthopaedic Surgery | DX: M75.102 Unspecified rotator cuff tear or rupture of left shoulder, not specified as traumatic (principal) | CPT/HCPCS: 99202 ==

== ENCOUNTER → 2024-08-05 09:50 | Day surgery (SDC) | payer OTHER, SELFPAY ==
--- NOTE | 2024-07-30 12:47 | HO.ANESPROP2 ---
HPI - Anesthesia Eval Consult details Narrative: 64yo M for Left Arthroscopic Rotator Cuff Repair Medically optimized Hx ETOH abuse - ? current PMFSH Past Medical History Medical History Gastritis Mood disorder Marijuana abuse Alcohol use disorder Aspiration into airway Alcohol withdrawal Social History Social History Alcohol intake: current Alcohol intake frequency: a few times a week Patient Tobacco Use Status: Former Tobacco user Substance Use Type: Marijuana Meds Allergies Allergy/AdvReac Type Severity Reaction Status Date / Time No Known Allergies Allergy Verified 07/27/24 08:56 Home Medications ?Medication ?Instructions ?Recorded ?Confirmed ?Last Taken ?Type allopurinol 100 mg tablet 100 mg PO DAILY 09/29/22 09/29/22 Unknown History ammonium lactate 5 % lotion 1 appl topical BEDTIME PRN Dry Skin 09/29/22 09/29/22 Unknown History carboxymethylcellulose sodium 0.5 1 drp ophthalmic (eye) QID 09/29/22 09/29/22 Unknown History % eye drops lisinopril 20 mg tablet 20 mg PO DAILY 09/29/22 09/29/22 Unknown History pramipexole 0.25 mg tablet 0.25 mg PO DAILY@1900 09/29/22 09/29/22 Unknown History venlafaxine 75 mg capsule,extended 75 mg PO DAILY 09/29/22 09/29/22 Unknown History release 24 hr zolpidem 5 mg tablet 5 mg PO BEDTIME PRN Insomnia 09/29/22 09/29/22 Unknown History Exam Pertinent Lab Results Pertinent Lab Results: CBC and BMP 06/2024 at outside facility WNL per clearance note Narrative Narrative: EKG 07/2024 per clearance note SB @ 58 Poor R wave progression Assessment and Plan Assessment Anesthesia Assessment: Chart Reviewed
--- NOTE | 2024-08-05 12:09 | MHC.SHP ---
Pre-Procedural Eval Section A - 24 Hr Update-Section A only Date of Service: 08/05/24 The patient is an INPATIENT: No The patient has been examined within 24 hours of the surgical procedure. The History & Physical has been completed within 30 days and I have reviewed it.: Yes Section B - Complete if H&P > 30 days Chief Complaint: Unspecified rotator cuff tear or rupture of left Allergies: Allergies Allergy/AdvReac Type Severity Reaction Status Date / Time No Known Allergies Allergy Verified 07/27/24 08:56 Plan I have reviewed the history and physical and performed a pertinent physical examination on my patient. No changes have occurred unless specified. Time Spent With Patient Time: Total time managing care of this patient today ____ minutes.
--- NOTE | 2024-08-05 12:57 | PC.NURSE ---
Pt surgery canceled by . Pt mukesh reschedule surgery for next week per MD.
== END ==
PROVIDERS: PCP Internal Medicine; Visit Provider Orthopaedic Surgery
DX: M75.102 Unspecified rotator cuff tear or rupture of left shoulder, not specified as traumatic (principal); Z53.8 Procedure and treatment not carried out for other reasons

== ENCOUNTER 2024-08-11 07:22 | Day surgery (SDC) | payer OTHER, SELFPAY ==
--- NOTE | 2024-08-07 14:05 | HO.ANESPROP2 ---
Documented by User: Karolina Galindo NP 08/07/24 14:05 HPI - Anesthesia Eval Consult details Narrative: 64yo M for Left Arthroscopic Rotator Cuff Repair Medically optimized Hx ETOH abuse - ? current [facility] Past Medical History Medical History Carpal tunnel syndrome of right wrist Short Achilles tendon (acquired), right ankle Rotator cuff arthropathy Gastritis Mood disorder Marijuana abuse Alcohol use disorder Aspiration into airway Alcohol withdrawal Social History Social History Are you a primary home care associate to a significant other at home: No Do you presently have visiting nurse or other home services: No Alcohol intake: current Alcohol intake frequency: former alcohol drinker Patient Tobacco Use Status: Former Tobacco user Substance Use Type: Marijuana Meds Allergies Allergy/AdvReac Type Severity Reaction Status Date / Time No Known Allergies Allergy Verified 08/11/24 07:50 Home Medications ?Medication ?Instructions ?Recorded ?Confirmed ?Last Taken ?Type No Known Home Meds 08/11/24 08/11/24 Unknown History Exam Pertinent Lab Results Pertinent Lab Results: CBC and BMP 06/2024 at outside facility WNL per clearance note Narrative Narrative: EKG 07/2024 per clearance note SB @ 58 Poor R wave progression Assessment and Plan Assessment Anesthesia Assessment: Chart Reviewed Documented by User: Janis Cruz MD 08/11/24 08:00 [facility] Past Medical History Medical History Carpal tunnel syndrome of right wrist Short Achilles tendon (acquired), right ankle Rotator cuff arthropathy Gastritis Mood disorder Marijuana abuse Alcohol use disorder Aspiration into airway Alcohol withdrawal Family History Family history of problems with anesthesia: No Surgical History History of Problems with Anesthesia: No Social History Social History Are you a primary home care associate to a significant other at home: No Do you presently have visiting nurse or other home services: No Alcohol intake: current Alcohol intake frequency: former alcohol drinker Patient Tobacco Use Status: Former Tobacco user Substance Use Type: Marijuana Meds Allergies Allergy/AdvReac Type Severity Reaction Status Date / Time No Known Allergies Allergy Verified 08/11/24 07:50 Home Medications ?Medication ?Instructions ?Recorded ?Confirmed ?Last Taken ?Type No Known Home Meds 08/11/24 08/11/24 Unknown History Exam Airway Mallampati Class: II TM Dist: >3cm Neck ROM: Full Heart: rrr Lungs: cta Assessment and Plan Assessment Anesthesia Assessment: Anesthesia Plan Discussed Final Anesthetic Review Family History of Problems with Anesthesia: No History of Problems with Anesthesia: No NPO: Yes ASA Class: II (stopped etoh abuse one year ago) Final Preanesthetic Review: No Changes in Pt Med Stat, Meds/Allgs Chart Reviewed, Consent Obtained/Reviewed and Anes Risks/Benef Reviewed Patient Risk: Low Procedure Risk: Intermediate Anesthetic Plan Anesthetic Plan: GA and Regional Block Disposition: Standard PACU Documented by User: Carmen Maurer MD 08/11/24 08:27 [facility] Past Medical History Medical History Carpal tunnel syndrome of right wrist Short Achilles tendon (acquired), right ankle Rotator cuff arthropathy Gastritis Mood disorder Marijuana abuse Alcohol use disorder Aspiration into airway Alcohol withdrawal Social History Social History Are you a primary home care associate to a significant other at home: No Do you presently have visiting nurse or other home services: No Alcohol intake: current Alcohol intake frequency: former alcohol drinker Patient Tobacco Use Status: Former Tobacco user Substance Use Type: Marijuana Meds Allergies Allergy/AdvReac Type Severity Reaction Status Date / Time No Known Allergies Allergy Verified 08/11/24 07:50 Home Medications ?Medication ?Instructions ?Recorded ?Confirmed ?Last Taken ?Type No Known Home Meds 08/11/24 08/11/24 Unknown History Exam Airway Loose/Missing/Broken Teeth: No
[2024-08-11] VITALS (9 sets, daily range): BP systolic 141–171; BP diastolic 69–98; PULSE 59–87; RESP 14–20; TEMP 36.1–37.1; O2SAT 95–98; BMI 30.4
[2024-08-11] MEDS: Lactated Ringers 1,000 ML 100 ML IVCONT (08:18)
--- NOTE | 2024-08-11 09:10 | MHC.SHP ---
Pre-Procedural Eval Section A - 24 Hr Update-Section A only Date of Service: 08/11/24 The patient is an INPATIENT: No Changes since office visit: No Cold of Flu in the past 2 weeks, No New Medical Problems, No Changes in Medication and No Patient answered all questions The patient has been examined within 24 hours of the surgical procedure. The History & Physical has been completed within 30 days and I have reviewed it.: Yes Section B - Complete if H&P > 30 days Chief Complaint: Unspecified rotator cuff tear or rupture of left Allergies: Allergies Allergy/AdvReac Type Severity Reaction Status Date / Time No Known Allergies Allergy Verified 08/11/24 07:50 Plan I have reviewed the history and physical and performed a pertinent physical examination on my patient. No changes have occurred unless specified. Time Spent With Patient Time: Total time managing care of this patient today ____ minutes.
--- NOTE | 2024-08-11 11:24 | PM.OP ---
Brief Operative Note Date of Service: 08/11/24 Pre-op diagnosis: Left RTC curr tear Post-op diagnosis: same Procedure: Revision left RTC repair Implants: Foster and Nephew 4.765 douyble loaded helacoil x 3 and 5.5 Knotless helacoil x 3 with large Regeneten bioinductive collagen patch Surgeon: Randy Epstein MD Anesthesia: GETA and regional Was an Manager Trading used for this Procedure?: No Manager Trading: Geraldo Steve Estimated blood loss (mL): 25 IV fluids (mL): 1,200 Pathology: none sent Condition: stable Disposition: PACU Assessment and Plan (No Qualifiers) Assessment and Plan (1) Rotator cuff tear, left: Status: Acute Plan LARGE REPAIR PROTOCOL
--- NOTE | 2024-08-25 13:02 | W.PM.OPN ---
Operative Note Operative Note Date of Service: 08/11/24 Narrative: Date of Service: 08/11/24 Pre-op diagnosis: Left RTC curr tear Post-op diagnosis: same Procedure: Revision left RTC repair Implants: Foster and Nephew 4.765 douyble loaded helacoil x 3 and 5.5 Knotless helacoil x 3 with large Regeneten bioinductive collagen patch Surgeon: Randy Epstein MD Anesthesia: GETA and regional Was an Advance Seal Delivery System Maintainer used for this Procedure?: No Advance Seal Delivery System Maintainer: Geraldo Steve Estimated blood loss (mL): 25 IV fluids (mL): 1,200 Pathology: none sent Condition: stable Disposition: PACU Procedure in detail: Patient was brought to the operating room and placed the the beach chair position. All bony prominences were well padded and the limb was prepped and draped in standard sterile fashion. A time out was called to identify proper site, proper procedure and proper surgeon. IV antibiotics per weight were administered. I began by making a posterolateral stab incision with a 15 blade. A blunt trochar was placed into the glenohumeral joint and I insufflated the joint with saline and a 30 degree arthroscope was placed. I established an outside- in anterior portal just distal to the biceps tendon. I then began my inspection of the glenohumeral joint. There was a degenerative tear of the superior labrum and a prior ( presumably) bicep tenotomy. There were minimal cartilage changes at the inferior glenoid without humeral head changes. There was a full thickness undersurface RTC tear. The subcapularis was torn and there was nothing to repair. I debrided the loose cartilage of the glenoid and the degenerative labral tearing circumferentially I then removed the trochar and entered the subacromial space. A direct lateral portal was then established and I performed a bursectomy. The cuff was then examined. There was a full thickness tear of the supra and infraspinatus with retraction. There was evidence of prior failed RTC sutures. These were removed from the bare area and the cuff examined. It was partially mobile. I derided it medially and anteriorly and felt that repair was possible. I used 3 medial row double loaded anchors after using a tap just adjacent to the articular cartilage and then brought the suture limbs (12) through the medial cuff. I then debrided the bare area down to bleeding bone and, using a cross bridge configuration, brought 4 limbs to each of three lateral 5.0 anchors. This re-approximated the cuff anatomy with no tension. The quality of the tissue was better than I would have suspected but not great and since this was a revision I inserted a large Regeenten collagen patch via a lateral portal. This was placed over the repair and held there by 6 medial PEEK arturo and two lateral bone arturo.. Once I was satisfied with the repair final images were captured and I removed all instrumentation. Portals were closed with nylon. Patient was placed in an abduction sling, extubated and brought to the recovery room in stable condition. There were no known complications.
== END 2024-08-11 13:36 | disposition home or self-care (01) ==
PROVIDERS: PCP Internal Medicine; Visit Provider Orthopaedic Surgery
PROC: (CPT 29827; principal; 2024-08-11 09:50)
DX: M75.102 Unspecified rotator cuff tear or rupture of left shoulder, not specified as traumatic (principal); M25.512 Pain in left shoulder; F39 Unspecified mood [affective] disorder; F10.939 Alcohol use, unspecified with withdrawal, unspecified; Z87.828 Personal history of other (healed) physical injury and trauma; Z79.1 Long term (current) use of non-steroidal anti-inflammatories (NSAID); Z87.891 Personal history of nicotine dependence
CPT/HCPCS: 29827; C1713; C1763; J0131; J0171; J0665; J0690; J1100; J2250; J2405; J2704; J3010

== ENCOUNTER → 2024-08-11 07:22 | Outpatient (BNV) | payer OTHER, SELFPAY | PROVIDERS: PCP Internal Medicine; Visit Provider Orthopaedic Surgery | DX: S46.011A Strain of muscle(s) and tendon(s) of the rotator cuff of right shoulder, initial encounter (principal) | CPT/HCPCS: 29827 ==

== ENCOUNTER 2024-08-20 14:26 | Outpatient (AMB) | payer OTHER, SELFPAY ==
--- NOTE | 2024-08-20 14:32 | A.OFFVIS_ITS ---
Vital Signs 08/20/24 14:33 Height 5 ft 4 in Weight 165 lb BMI 28.3 Intake Visit Reasons: PO LT shoulder RTC 08/11/24 NE Intake Note: Peter a 64 year old male who presents today for a post operative visit s/p LT shoulder RTC 08/11/24 NE. Patient reports he is doing well, he denies any pain or discomfort at the moment. He has no concerns today. Allergies No Known Allergies Allergy (Verified 08/20/24 14:34) Medication List - Last Reconciled 08/20/24 by Geraldo Steve PA-C morphine ER (MS Contin) 15 mg PO Q12H 3 days oxycodone 5 mg PO Q4H PRN 7 days HPI HPI PO LT shoulder RTC 08/11/24 NE: Details: 64-year-old male who returns to the office today for post-op left RTC repair, 08/11/24 with . He states he has no pain or discomfort and is doing well overall. He has no concerns today. [facility] Medical History Carpal tunnel syndrome of right wrist Short Achilles tendon (acquired), right ankle Rotator cuff arthropathy Gastritis Mood disorder Marijuana abuse Alcohol use disorder Aspiration into airway Alcohol withdrawal Social History Are you a primary critical care transport nurse to a significant other at home: No Do you presently have visiting nurse or other home services: No Alcohol intake: current Alcohol intake frequency: former alcohol drinker Patient Tobacco Use Status: Former Tobacco user Substance Use Type: Marijuana Review of Systems Const All systems reviewed & are unremarkable except as noted in HPI and below Physical Exam Vital Signs: BMI result Body Mass Index 28.3 Extrem Other: Left shoulder: Incision clean, dry and intact. No redness or drainage. Sensation intact pulse present. Results Reviewed Results Reviewed: Brief Operative Note Date of Service: 08/11/24 Pre-op diagnosis: Left RTC curr tear Post-op diagnosis: same Procedure: Revision left RTC repair Implants: Foster [employer] Nephew 4.765 douyble loaded helacoil x 3 and 5.5 Knotless helacoil x 3 with large Regeneten bioinductive collagen patch Assessment & Plan Assessment & Plan (1) Rotator cuff tear, left: Code(s): M75.102 - Unspecified rotator cuff tear or rupture of left shoulder, not specified as traumatic Category: Medical Plan Sutures removed today, steri strips applied. He will continue to wear his sling over the next 6 weeks for protection. He can remove for hygiene and exercises. A physical therapy order was placed. He will reach out to the facility to book an appointment for therapy and he can contact us if he has difficulty doing so. I would like to see him back in 4 weeks with , sooner if needed. Orders: Orders PT Evaluation and Treatment Today M75.102 - Unspecified rotator cuff tear or rupture of left shoulder, not specified as traumatic Patient Instructions: Scribed for Geraldo Steve PA-C, by Anson Medeiros forensic medical examiner, on 08/20/2024 at 2:30 PM EST.? I, Geraldo Steve PA-C, have personally reviewed and agree with the information entered by the scribe. Coding Level of Care Code Global (73615) Diagnoses Rotator cuff tear, left M75.102
[2024-08-20 14:33] VITALS: BMI 28.3
== END 2024-08-20 15:01 | disposition home or self-care (01) ==
PROVIDERS: PCP Internal Medicine; Visit Provider Physician Assistant
DX: M75.102 Unspecified rotator cuff tear or rupture of left shoulder, not specified as traumatic (principal)
CPT/HCPCS: 99024

== ENCOUNTER → 2024-08-20 14:26 | Outpatient (BNVA) | payer OTHER, SELFPAY | PROVIDERS: PCP Internal Medicine; Visit Provider Physician Assistant | DX: Z47.89 Encounter for other orthopedic aftercare (principal); M75.102 Unspecified rotator cuff tear or rupture of left shoulder, not specified as traumatic; Z98.890 Other specified postprocedural states | CPT/HCPCS: 99212 ==

== ENCOUNTER 2024-09-03 14:42 | Outpatient (RCR) | payer OTHER, SELFPAY ==
--- NOTE | 2024-09-03 16:24 | MHC.PT.EP ---
[facility] [place] Office [place] Office [place] Office [address] [phone] F: [phone] F: [phone] F: [phone] F: [phone] Physical Therapy Plan of Care Date of Evaluation: 09/03/24 Date of Surgery: 08/11/24 Diagnosis: Post op L large RTC repair Assessment: Pt is a 64 y/o LHD M who is referred to PT for eval and treat of L large RTC repair resulting in decreased tolerance or ability dressing pullovers, lifting objects of weight, performing heavy HH chores, reaching high shelves as well as preferred recreation of biking secondary to decreased L shoulder ROM and strength due to tissue healing post op large RTC repair for management of chronic L shoulder pain. Pt is motivated and is deemed an appropriate candidate to receive skilled PT services to address his physical impairments in order to improve his function. Frequency and Duration: The patient will be seen 2x/week for 12 weeks. Short Term Goals: Initiate home exercise program. Pt will have 180 deg L SH flex PROM; initial 145 deg. Pt will have 160 deg L SH abd PROM; initial 85 deg. Emergency Room Specialist Goals: Pt will be I with home exercise program. Pt will report at most 1/10 pain when reaching for something in his back pocket; initial 4/10. Pt will report at most 6/10 pain when reaching for something on a high shelf; initial 10/10. Pt will improve SPADI score by at least 13 points. Treatment Plan: Modalities to reduce pain, spasms and effusion. Manual therapy to restore motion and function. Therapeutic exercise to improve strength and flexibility. Neuromuscular re-education for posture and balance. Therapeutic activities to return to functional activities of daily living. Electronically signed by: Daryl Gillespie PT. Please sign and return to therapist. Thank you for your referral.
--- NOTE | 2024-09-17 16:26 | MHC.PT.DC ---
[facility] [place] Office [place] Office [place] Office [address] Aaliy[address] Biswas [address] [phone] F: [phone] F: [phone] F: [phone] F: [phone] Physical Therapy Discharge Report Diagnosis: Post op L large RTC repair Date of Surgery: 08/11/24 Date of Evaluation: 09/03/24 Date of Discharge: 09/17/24 Treatments to Date: 1 Cancellations to Date: No Shows to Date: 4 Discharge Status: Visit Non-compliance Discharge Summary: Pt has logged 4 no-show apts after his initial evaluation and he has not contacted therapy or responded to reminders regarding his apts and DC'd per attendance policy. Electronically signed by: Daryl Gillespie PT. Please sign and return to therapist. Thank you for your referral.
== END 2024-09-17 15:41 | disposition home or self-care (01) ==
LOC: HO.PT 14:42
PROVIDERS: PCP Internal Medicine; Visit Provider Physician Assistant
DX: M75.102 Unspecified rotator cuff tear or rupture of left shoulder, not specified as traumatic (principal)
CPT/HCPCS: 97110; 97161

== ENCOUNTER 2024-09-25 11:03 | Outpatient (AMB) | payer OTHER, SELFPAY ==
--- NOTE | 2024-09-25 11:11 | A.OFFVIS_ITS ---
Vital Signs 09/25/24 11:12 Height 5 ft 4 in Weight 165 lb BMI 28.3 Intake Visit Reasons: PO- Left RTC Repair 08/11/24 NE Intake Note: Peter a 64 year old male who presents today for a post operative visit s/p LT shoulder RTC 08/11/24 NE. Patient reports he is doing well, he denies any pain or discomfort at the moment. He has no concerns today. Allergies No Known Allergies Allergy (Verified 08/20/24 14:34) HPI HPI PO- Left RTC Repair 08/11/24 NE: Details: Peter a 64 year old male who presents today for a post operative visit s/p LT shoulder RTC 08/11/24 NE. Patient reports he is doing well, he denies any pain or discomfort at the moment. He has no concerns today. [facility] Medical History Carpal tunnel syndrome of right wrist Short Achilles tendon (acquired), right ankle Rotator cuff arthropathy Gastritis Mood disorder Marijuana abuse Alcohol use disorder Aspiration into airway Alcohol withdrawal Social History (Reviewed 08/20/24 @ 14:34 by Sherry Wheeler [facility]) Are you a primary wound care nurse to a significant other at home: No Do you presently have visiting nurse or other home services: No Alcohol intake: current Alcohol intake frequency: former alcohol drinker Patient Tobacco Use Status: Former Tobacco user Substance Use Type: Marijuana Physical Exam Vital Signs: BMI result Body Mass Index 28.3 Results Reviewed Results Reviewed: moving arm comfortably Assessment & Plan Assessment & Plan (1) Rotator cuff tear, left: Code(s): M75.102 - Unspecified rotator cuff tear or rupture of left shoulder, not specified as traumatic Category: Medical Plan: Doing well but not attending PT Cont HEP No lifting F/u 6 weeks Coding Level of Care Code Global (53542) Diagnoses Rotator cuff tear, left M75.102
[2024-09-25 11:12] VITALS: BMI 28.3
== END 2024-09-25 11:32 | disposition home or self-care (01) ==
PROVIDERS: PCP Internal Medicine; Visit Provider Orthopaedic Surgery
DX: M75.102 Unspecified rotator cuff tear or rupture of left shoulder, not specified as traumatic (principal)
CPT/HCPCS: 99024

== ENCOUNTER → 2024-09-25 11:03 | Outpatient (BNVA) | payer OTHER, SELFPAY | PROVIDERS: PCP Internal Medicine; Visit Provider Orthopaedic Surgery | DX: M75.102 Unspecified rotator cuff tear or rupture of left shoulder, not specified as traumatic (principal) | CPT/HCPCS: 99212 ==